=== PATIENT | female | born 1955 | race Caucasian/White ===

== ENCOUNTER 2016-09-06 15:12 | Inpatient (IN) | payer OTHER ==
[~2016-09-06] VITALS: Ht 165.1 cm; Wt 54.9 kg
--- NOTE | 2016-09-06 15:25 | NUR ---
C/O LOWER ABDOMINAL PAIN X 6 HOURS WITH RECTAL BLEEDING, DIZZINESS. STATES SHE HAS BEEN CONSTIPATED WITH INTERMITTANT DIARRHEA.
[2016-09-06 16:38] LABS: ABSOLUTE BASOPHIL COUNT 0 /CUMM (0.0-0.2); ABSOLUTE EOSINOPHIL COUNT 0 /CUMM (0.0-0.7); ABSOLUTE GRANULOCYTE CT 22.7 /CUMM (1.4-6.5); ABSOLUTE LYMPH COUNT 0.8 /CUMM (1.2-3.4); ABSOLUTE MONOCYTE COUNT 1.2 /CUMM (0.10-0.60); BASOPHIL % 0.1 % (0.0-2.0); EOSINOPHIL % 0 % (0-5); GRANULOCYTE % 91.7 % (42.2-75.2); HEMATOCRIT 41.8 % (37-47); MEAN CORPUSCULAR HGB 29.5 PG (27.0-31.0); MEAN CORPUSCULAR HGB CONC 32.8 G/DL (33.0-37.0); MEAN CORPUSCULAR VOLUME 90.1 FL (81.0-99.0); PLATELET COUNT 333 /CUMM (130-400); RBC DISTRIBUTION WIDTH 13.9 % (11.5-14.5); RED BLOOD CELL CT 4.64 /CUMM (4.20-5.40); WHITE BLOOD CELL COUNT 24.7 /CUMM (4.8-10.8)
--- NOTE | 2016-09-06 16:44 | ED GI/GU/ABDOMINAL COMPLAINT ---
History of Present Illness General Chief Complaint: Abdominal Pain/Flank Pain Stated Complaint: ABD PAIN/BLOOD OUT OF RECTUM Source: patient Exam Limitations: no limitations Vital Signs & Intake/Output Vital Signs & Intake/Output Vital Signs Date Time Temp Pulse Resp B/P Pulse O2 O2 Flow FiO2 Ox Delivery Rate 09/08 0703 98.2 76 18 132/68 95 Room Air 09/07 2242 98.2 72 18 130/70 94 Room Air 09/07 1458 98.8 76 18 102/58 95 ED Intake and Output 09/08 0000 09/07 1200 Intake Total 2400 1200 Output Total 550 Balance 1850 1200 Intake, IV 2000 1200 Intake, Oral 400 Number 0 Bowel Movements Output, Urine 550 Allergies Coded Allergies: tramadol (UNKNOWN 10/28/15) Reconcile Medications Eletriptan HBr (Relpax) 40 MG TABLET 1 TAB PO DAILY MIGRAINES (Reported) Estradiol (Vivelle-Dot) 0.075 MG/24 HOUR PATCH.TDSW 1 TAB PO PRN ESTROGEN ( Reported) Gabapentin Enacarbil (Horizant) 600 MG TABLET.ER 1 TAB PO BID NERVE PAIN ( Reported) Lisdexamfetamine Dimesylate (Vyvanse) 60 MG CAPSULE 1 CAP PO QAM NERVES ( Reported) Metaxalone (Skelaxin) 800 MG TABLET 1 TAB PO TID MUSCLE SPASM (Reported) Montelukast Sodium 10 MG TABLET 1 TAB PO DAILY ALLERGIES (Reported) Triage Note: C/O LOWER ABDOMINAL PAIN X 6 HOURS WITH RECTAL BLEEDING, DIZZINESS. STATES SHE HAS BEEN CONSTIPATED WITH INTERMITTATN DIARRHEA. Triage Nurses Notes Reviewed? yes ? N Is pt currently ? No HPI: THIS PATIENT is a 60-year-old female with a past medical history including asthma who presented to the emergency department today for acute onset of left lower quadrant abdominal pain. The patient reported that she was sitting at work approximately 6 hours ago when she developed sharp, 9 out of 10, nonradiating left lower abdominal pain. She reported that the pain has been constant, but gets worse in waves. At its best, the pain is a 6 out of 10. She reported that since she has been here in the emergency department, the pain seems to have migrated to her mid lower abdomen. The patient denied any provoking or palliative factors. She reported that over the last several months she has been more constipated than normal. Her reported that she has had a 12 pound weight loss over the last couple of months. The patient reported that today she had 2 episodes of watery diarrhea. After that time, she reported that she started passing bright red clots in her stool. She reported that she has had a minimal amount to eat and drink today. She reported nausea, but no vomiting. She denied any fevers, chills, chest pain, back pain, urinary burning , urgency, frequency, or blood in the urine. (ROBERTH ROB PA-C) Past History Travel History Traveled to [place] past 21 day No Medical History Any Pertinent Medical History? see below for history Respiratory: asthma Surgical History Surgical History: non-contributory Psychosocial History Who do you live with Family Services at Home None What is your primary language Austrian Tobacco Use: Never used ETOH Use: denies use Family History Hx Contributory? No (ROBERTH ROB PA-C) Review of Systems Review of Systems Constitutional: Reports: no symptoms. EENTM: Reports: no symptoms. Respiratory: Reports: no symptoms. Cardiovascular: Reports: no symptoms. GI: Reports: see HPI. Genitourinary: Reports: no symptoms. Musculoskeletal: Reports: no symptoms. Skin: Reports: no symptoms. Neurological/Psychological: Reports: no symptoms. Hematologic/Endocrine: Reports: see HPI. All Other Systems: Reviewed and Negative (ROBERTH ROB PA-C) Physical Exam Physical Exam Gastrointestinal: soft, HYPOACTIVE BOWEL SOUNDS. nONDISTENDED. nO ORGANOMEGALY APPRECIATED. nO MASSES APPRECIATED. tENDERNESS TO PALPATION IN THE LEFT LOWER QUADRANT AND MID LOWER ABDOMEN WITH NO REBOUND OR GUARDING. nO mCbURNEY POINT TENDERNESS. nEGATIVE Lobo SIGN Comments: Well-developed well-nourished person in moderate distress HEENT: Normal EENT exam, head normocephalic, moist mucous membranes Neck: Supple with no lymphadenopathy Back: No CVA tenderness Cardiovascular: Regular rate and rhythm with no murmurs, rubs, or gallops Respiratory: Chest nontender. No respiratory distress. Breath sounds clear to auscultation bilaterally Rectal examination: No evidence of external hemorrhoids or fissures. No internal hemorrhoids appreciated. Brown stool, heme-positive on stool guaiac Neuro: Alert oriented x3, cranial nerves II through XII grossly intact. Skin: No appreciable rash on exposed skin, skin is warm and dry. Psych: Mood and affect is normal Core Measures ACS in differential dx? No Severe Sepsis Present: No Septic Shock Present: No (LIANE YEN,ROBERTH) Progress Differential Diagnosis: AAA, AMI, appendicitis, biliary colic, bowel obstruction , colon cancer, cholecystitis, diverticulitis, gastritis, hemorrhoids, ischemic bowel, inflamm bowel dis, kidney stone, ovarian cyst, ovarian torsion, pancreatitis, PID/cervicitis, PUD/GERD, perforated viscous, threatened AB, UTI/ pyelo Plan of Care: Orders Procedure Date/time Status Nothing by Mouth 09/08 B Active HEPATIC FUNCTION PANEL 09/08 0600 Complete CBC WITHOUT DIFFERENTIAL 09/08 0600 Complete BASIC ELECTROLYTES PLUS BUN&CR 09/08 0600 Complete MISSING MEDICATION FORM 09/08 UNK Active Clear Liquid Diet 09/07 D Complete LACTIC ACID 09/07 2100 Complete HEPATIC FUNCTION PANEL 09/07 2100 Complete CBC WITHOUT DIFFERENTIAL 09/07 2100 Complete BASIC ELECTROLYTES PLUS BUN&CR 09/07 2100 Complete CBC WITHOUT DIFFERENTIAL 09/07 1500 Complete Change service to 09/07 1155 Active Current Medications Sig/Sun Start time Last Medication Dose Stop Time Status Admin Non-Formulary 0 SEE ADMIN CRITERIA 09/08 1045 UNVr Medication (NON FORMULARY) Hydromorphone HCl 0.6 MG Q3P PRN 09/08 1000 AC (Dilaudid) Diphenhydramine HCl 25 MG Q6P PRN 09/06 2130 AC (Benadryl) Laboratory Tests 09/08/16 0620: Anion Gap 5, Estimated GFR > 60, BUN/Creatinine Ratio 6.7 L, Total Bilirubin 0.3, Direct Bilirubin 0.3, AST 12 L, ALT 28, Alkaline Phosphatase 68, Total Protein 4.7 L, Albumin 2.3 L, CBC w Diff NO MAN DIFF REQ, RBC 3.67 L, MCV 90.9, MCH 29.8, RDW 14.3, MPV 8.0, Gran % 84.8 H, Lymphocytes % 7.0 L, Monocytes % 7.2, Eosinophils % 0.9, Basophils % 0.1, Absolute Granulocytes 17.1 H, Absolute Lymphocytes 1.4, Absolute Monocytes 1.5 H, Absolute Eosinophils 0.2 , Absolute Basophils 0, PUBS MCHC 32.7 L 09/07/16 2255: Anion Gap 8, Estimated GFR > 60, BUN/Creatinine Ratio 8.3, Lactic Acid 0.7, Total Bilirubin 0.3, Direct Bilirubin 0.3, AST 16, ALT 30, Alkaline Phosphatase 64, Total Protein 5.3 L, Albumin 2.7 L, CBC w Diff MAN DIFF ORDERED, RBC 3.84 L, MCV 90.4, MCH 29.7, RDW 14.3, MPV 7.9, Gran % 90.2 H, Lymphocytes % 3.1 L, Monocytes % 6.2, Eosinophils % 0.2, Basophils % 0.3, Absolute Granulocytes 21.5 H, Segmented Neutrophils 77 H, Band Neutrophils 16 H, Absolute Lymphocytes 0.7 L, Lymphocytes 3 L, Monocytes 4, Absolute Monocytes 1.5 H, Absolute Eosinophils 0.1, Absolute Basophils 0.1, Platelet Estimate ADEQUATE, Normocytic RBCs VERIFIED, Normochromic RBCs VERIFIED, PUBS MCHC 32.8 L 09/07/16 1700: CBC w Diff Cancelled, WBC Cancelled, RBC Cancelled, Hgb Cancelled, Hct Cancelled , MCV Cancelled, MCH Cancelled, RDW Cancelled, Plt Count Cancelled, MPV Cancelled, PUBS MCHC Cancelled 09/07/16 1431: CBC w Diff MAN DIFF ORDERED, RBC 3.57 L, MCV 89.7, MCH 30.3, RDW 13.8, MPV 7.7, Gran % 87.2 H, Lymphocytes % 5.7 L, Monocytes % 6.5, Eosinophils % 0.5, Basophils % 0.1, Absolute Granulocytes 20.8 H, Segmented Neutrophils 82 H, Band Neutrophils 9 H, Absolute Lymphocytes 1.4, Lymphocytes 6 L, Monocytes 3, Absolute Monocytes 1.6 H, Absolute Eosinophils 0.1, Absolute Basophils 0, Platelet Estimate VERIFIED BY SMEAR, Normocytic RBCs VERIFIED, Normochromic RBCs VERIFIED, PUBS MCHC 33.7 09/07/16 1400: CBC w Diff Cancelled, WBC Cancelled, RBC Cancelled, Hgb Cancelled, Hct Cancelled , MCV Cancelled, MCH Cancelled, RDW Cancelled, Plt Count Cancelled, MPV Cancelled, PUBS MCHC Cancelled Diagnostic Imaging: Viewed by Me: CT Scan. Discussed w/RAD: CT Scan. Radiology Impression: PATIENT: HOMER CEE PRESENT AGE: 60 PATIENT ACCOUNT NO: [id number] : 54 LOCATION: [facility] ORDERING PHYSICIAN: ROBERTH ROB PA-C SERVICE DATE: 09/06/16 EXAM TYPE: CAT - CT ABD & PELVIS W IV CONTRAST EXAMINATION: CT ABDOMEN AND PELVIS WITH CONTRAST CLINICAL INFORMATION: Left lower quadrant abdominal pain. COMPARISON: None TECHNIQUE: Multidetector volumetric imaging was performed of the abdomen and pelvis before and after the IV administration of 95 mL of Optiray 320 intravenous contrast. Sagittal and coronal reformatted images were obtained on the technologist's workstation. DLP: 250 to mGy-cm FINDINGS: LUNG BASES: There is platelike atelectasis right middle lobe both lung bases are unremarkable. The heart size is normal. LIVER, GALLBLADDER, AND BILIARY TREE: The liver is normal in size, shape, and attenuation. There are several small hypoinflated attenuated lesions seen segment 4A, segment 6 and segment 7 of the liver. These are suspicious for small cysts however to small to be correctly characterized. No intrahepatic ductal dilatation seen. There is a 1.1 cm hypodense lesion along the anterior gallbladder wall. Question polyp versus lesion. Rest of the gallbladder is unremarkable. No radiopaque gallstones seen.. PANCREAS: Unremarkable. SPLEEN: Unremarkable. ADRENAL GLANDS: Unremarkable. KIDNEYS AND URETERS: The kidneys are normal in size, shape, and attenuation. No hydronephrosis, hydroureter, or calculi seen. No perinephric stranding. BLADDER: Unremarkable. GASTROINTESTINAL TRACT: There is diffuse mural thickening involving the transverse, descending and sigmoid colon suggestive of colitis probably infectious or inflammatory etiology. In addition there is diffuse sigmoid and scattered descending colon diverticulosis without any diverticulitis. There is mild left paracolic stranding from inflammatory process or fluid. There is mild haziness of mesocolon. The small bowel loops are normal caliber. The cecum and the ileocecal junction appears normal. Appendix is not visualized with certainty. No free air or free fluid seen. ABDOMINAL WALL: A small umbilical hernia containing fat is noted. LYMPH NODES: Normal. VASCULAR: The aorta is normal caliber. There are prominent collateral veins in the splenic hilum. Splenic Artery Aneurysm cannot be excluded. They measure 1.1 cm. PELVIC VISCERA: The uterus partially atrophied or removed. There are several phleboliths in the pelvis. No free fluid seen in the cul-de-sac. OSSEOUS STRUCTURES: No lytic or sclerotic process seen. IMPRESSION: Diffuse mural thickening involving the transverse, descending and sigmoid colon suggestive of colitis from inflammatory or infectious process. In addition there is diffuse sigmoid and scattered distal descending colon diverticulosis but no suggestion for diverticulitis. There is haziness of the left meso colon. No free air or free fluid seen. 6 small hypodense liver lesions probable tiny cyst. Slightly hyperdense lesion along the anterior gallbladder wall collection polyp, cyst or lytic underlying lesion. Recommend ultrasound correlation. Suspect two splenic artery aneurysms or dilated collateral veins. DICTATED BY: OLESYA OLGUIN MD DATE/ TIME DICTATED:09/06/161853 RADIO PROGRAM DIRECTOR:DIMITRI DATE/TIME TRANSCRIBED: 09/06/161853 CONFIDENTIAL, DO NOT COPY WITHOUT APPROPRIATE AUTHORIZATION. < Electronically signed in Other Vendor System> SIGNED BY: OLESYA OLGUIN MD 1910 Initial ED EKG: none Comments: 09/06/2016 7:51:15 PM: I discussed this patient's CT scan and workup with on-call industrial health engineer, Dr. Fernandez. Suggesting that this is likely ischemic colitis. He would like to start her on Cipro Flagyl. He would like to follow her hemoglobin and hematocrit overnight as well as provide pain control. He is recommending a surgical consult and stated that he will consult on this patient in the morning and likely do a flexible sigmoidoscopy. (ROBERTH ROB PA-C) Departure Departure Disposition: STILL A PATIENT Condition: Stable Clinical Impression Primary Impression: Ischemic colitis Referrals: YOKO FUNK MD (PCP/Family) Departure Forms: Customer Survey General Discharge Information Admission Note Spoke With: BETINA MUSTAFA MD Documentation of Exam: Documentation of any treatments & extenuating circumstances including Concerns Regarding Discharge (functional status, medication knowledge or non-compliance, living conditions, etc.) that warrant an admission rather than observation: [ This patient is a 60-year-old female who presented to the emergency department today for evaluation of acute onset of left lower quadrant abdominal pain. White blood cell count of 24. CT scan showing likely ischemic colitis. This patient will need to be admitted for IV antibiotics, IV fluid, gastroenterology consultation, surgical consultation, colonoscopy, trend H&H, follow-up urine culture, follow-up blood culture, and close monitoring. Premature discharge could prove medically harmful.] (ROBERTH ROB PA-C) PA/RN SCHOOL Co-Sign Statement Statement: ED Attending supervision documentation- [] I saw and evaluated the patient. I have also reviewed all the pertinent lab results and diagnostic results. I agree with the findings and the plan of care as documented in the PA's/RN SCHOOL's documentation. [X] I have reviewed the ED Record and agree with the PA's/RN SCHOOL's documentation. [] Additions or exceptions (if any) to the PAs/RN SCHOOL's note and plan are summarized below: [] (ODALIS PETE,LUANN) 1910 Initial ED EKG: none Comments: 09/06/2016 7:51:15 PM: I discussed this patient's CT scan and workup with on-call industrial health engineer, Dr. Fernandez. Suggesting that this is likely ischemic colitis. He would like to start her on Cipro Flagyl. He would like to follow her hemoglobin and hematocrit overnight as well as provide pain control. He is recommending a surgical consult and stated that he will consult on this patient in the morning and likely do a flexible sigmoidoscopy. Departure Departure Disposition: STILL A PATIENT Condition: Stable Clinical Impression Primary Impression: Ischemic colitis Referrals: YOKO FUNK MD (PCP/Family) Departure Forms: Customer Survey General Discharge Information Admission Note Spoke With: BETINA MUSTAFA MD Documentation of Exam: Documentation of any treatments & extenuating circumstances including Concerns Regarding Discharge (functional status, medication knowledge or non-compliance, living conditions, etc.) that warrant an admission rather than observation: [ This patient is a 60-year-old female who presented to the emergency department today for evaluation of acute onset of left lower quadrant abdominal pain. White blood cell count of 24. CT scan showing likely ischemic colitis. This patient will need to be admitted for IV antibiotics, IV fluid, gastroenterology consultation, surgical consultation, colonoscopy, trend H&H, follow-up urine culture, follow-up blood culture, and close monitoring. Premature discharge could prove medically harmful.]
--- NOTE | 2016-09-06 17:00 | NUR ---
ATTEMPTED IV AND LINE INFILTRATED AND SECOND ATTEMPT NOT SUCCESSFUL. CHARGE ATTEMPTING
--- NOTE | 2016-09-06 17:02 | NUR ---
SHARITA ROB AT BEDSIDE TO EVAL PT AND DISCUSS POC WITH HER AND SPOUSE
[2016-09-06 17:06] LABS: PT 10.7 SEC (9.4-12.5); PTT 31 SEC (25-37)
[2016-09-06] MEDS ORDERED: MONTELUKAST SOD10 M1 PO (17:28)
[2016-09-06] MEDS ORDERED: RELPAX40 M1 PO (17:28)
[2016-09-06] MEDS ORDERED: VYVANSE60 M1 PO (17:29)
[2016-09-06] MEDS ORDERED: HORIZANT600 M1 PO (17:38)
[2016-09-06] MEDS ORDERED: VIVELLE-DOT1 EAC4 PO (17:40)
[2016-09-06] MEDS ORDERED: SKELAXIN800 M1 PO (17:41)
--- NOTE | 2016-09-06 17:49 | NUR ---
PT FEELS A LITTLE BETTER WITH PAIN MEDS ALTHOUGH PAIN IS STILL PRESENT BUT NOT BAS BEFORE
--- NOTE | 2016-09-06 18:35 | NUR ---
PT LEFT FOR CAT SCAN
--- NOTE | 2016-09-06 19:11 | CT SCAN REPORT ---
EXAMINATION: CT ABDOMEN AND PELVIS WITH CONTRAST CLINICAL INFORMATION: Left lower quadrant abdominal pain. COMPARISON: None TECHNIQUE: Multidetector volumetric imaging was performed of the abdomen and pelvis before and after the IV administration of 95 mL of Optiray 320 intravenous contrast. Sagittal and coronal reformatted images were obtained on the technologist's workstation. DLP: 250 to mGy-cm FINDINGS: LUNG BASES: There is platelike atelectasis right middle lobe both lung bases are unremarkable. The heart size is normal. LIVER, GALLBLADDER, AND BILIARY TREE: The liver is normal in size, shape, and attenuation. There are several small hypoinflated attenuated lesions seen segment 4A, segment 6 and segment 7 of the liver. These are suspicious for small cysts however to small to be correctly characterized. No intrahepatic ductal dilatation seen. There is a 1.1 cm hypodense lesion along the anterior gallbladder wall. Question polyp versus lesion. Rest of the gallbladder is unremarkable. No radiopaque gallstones seen.. PANCREAS: Unremarkable. SPLEEN: Unremarkable. ADRENAL GLANDS: Unremarkable. KIDNEYS AND URETERS: The kidneys are normal in size, shape, and attenuation. No hydronephrosis, hydroureter, or calculi seen. No perinephric stranding. BLADDER: Unremarkable. GASTROINTESTINAL TRACT: There is diffuse mural thickening involving the transverse, descending and sigmoid colon suggestive of colitis probably infectious or inflammatory etiology. In addition there is diffuse sigmoid and scattered descending colon diverticulosis without any diverticulitis. There is mild left paracolic stranding from inflammatory process or fluid. There is mild haziness of mesocolon. The small bowel loops are normal caliber. The cecum and the ileocecal junction appears normal. Appendix is not visualized with certainty. No free air or free fluid seen. ABDOMINAL WALL: A small umbilical hernia containing fat is noted. LYMPH NODES: Normal. VASCULAR: The aorta is normal caliber. There are prominent collateral veins in the splenic hilum. Splenic Artery Aneurysm cannot be excluded. They measure 1.1 cm. PELVIC VISCERA: The uterus partially atrophied or removed. There are several phleboliths in the pelvis. No free fluid seen in the cul-de-sac. OSSEOUS STRUCTURES: No lytic or sclerotic process seen. IMPRESSION: Diffuse mural thickening involving the transverse, descending and sigmoid colon suggestive of colitis from inflammatory or infectious process. In addition there is diffuse sigmoid and scattered distal descending colon diverticulosis but no suggestion for diverticulitis. There is haziness of the left meso colon. No free air or free fluid seen. 6 small hypodense liver lesions probable tiny cyst. Slightly hyperdense lesion along the anterior gallbladder wall collection polyp, cyst or lytic underlying lesion. Recommend ultrasound correlation. Suspect two splenic artery aneurysms or dilated collateral veins.
--- NOTE | 2016-09-06 19:38 | NUR ---
PT MEDICATED ORDERED
--- NOTE | 2016-09-06 20:03 | NUR ---
SHARITA LIANE AT BEDSIDE TO DISCUSS POC WITH PT AND FAMILY PT REQUESTING TO HAVE NO STUDENT OR INTERNS AND WAS ADVISED THAT WE ARE A [facility] SO THEY WORK WITH OUR DOCTORS.
--- NOTE | 2016-09-06 20:13 | NUR ---
RT AT BEDSIDE TO EVAL PT
--- NOTE | 2016-09-06 20:40 | NUR ---
PT EVALUATED BY HOUSE STAFF ALSO GIVEN ICE CHIPS AND DR. MOLINA ALSO COMPLETED A NEW ORTHOSTATIC WHICH IS NOTED IN SYSTEM
--- NOTE | 2016-09-06 21:07 | NUR ---
MEDICAL INTERNS ALSO EVALUATED PT AND PT HAS IV FLAGYL INFUSING AT PRESENT
--- NOTE | 2016-09-06 21:30 | NUR ---
PT GOING TO ROOM 223-1.
--- NOTE | 2016-09-06 22:01 | NUR ---
HOMER CEE Nurse Note by: AILYN KELLOGG I agree with the CONTRACT GRAPHIC DESIGNER findings/evaluation of this patient's condition. Entered by: AILYN KELLOGG Date: 09/06/16 Time: 2200
[2016-09-06 23:06] VITALS: BP 110/60
--- NOTE | 2016-09-06 23:46 | History & Physical ---
GRAEME PETE,JJ 09/06/16 2545: General Information and HPI MD Statement: I have seen and personally examined HOMER CEE and documented this H &P. The patient is a 60 year old F who presented with a patient stated chief complaint of [abd pain]. Source of Information: patient, old records Exam Limitations: no limitations History of Present Illness: This is a 60-year-old female with past medical history asthma, total abdominal hysterectomy, bilateral salpingo-oophorectomy at age 33, on hormone replacement therapy, comes in with chief complaint of left lower quadrant pain followed by watery diarrhea followed by bright red blood per rectum. Patient states that while sitting at work she experienced acute onset left lower quadrant abdominal pain. Initially was 9 out of 10 nonradiating constant pain that seemed to get worse in waves. Pain seemed to migrate to middle of her lower abdomen. Patient does endorse increased constipation over the past few months, she states that for the past year she had Left lower quadrant pain but "every time I went to do something about it, the pain went away." Additionally, the left lower quadrant pain seemed to be getting worse over the past week. However, the pain has never been as acute or as severe at this time. Patient also endorses a history of chronic hematuria. She states that previously she was diagnosed with "chronic kidney stone." Patient denies any fever, vomiting, cough, chest pain, back pain, urinary urgency, frequency. She does endorse nausea, abdominal pain, and some weight loss over the past few months. Patient has significant family history of cancer. Father had prostate cancer, mother had lung cancer, her sister had ovarian cancer and in her mid 30s. Additionally, another sister had "clotting problems," after 2 C-sections. Patient had been on chronic estrogen therapy for what sounds like decades. Allergies/Medications Allergies: Coded Allergies: tramadol (UNKNOWN 10/28/15) Home Med list Eletriptan HBr (Relpax) 40 MG TABLET 1 TAB PO DAILY MIGRAINES (Reported) Estradiol (Vivelle-Dot) 0.075 MG/24 HOUR PATCH.TDSW 1 TAB PO PRN ESTROGEN ( Reported) Gabapentin Enacarbil (Horizant) 600 MG TABLET.ER 1 TAB PO BID NERVE PAIN ( Reported) Lisdexamfetamine Dimesylate (Vyvanse) 60 MG CAPSULE 1 CAP PO QAM NERVES ( Reported) Metaxalone (Skelaxin) 800 MG TABLET 1 TAB PO TID MUSCLE SPASM (Reported) Montelukast Sodium 10 MG TABLET 1 TAB PO DAILY ALLERGIES (Reported) Compliance With Home Meds: GOOD Past History Travel History Traveled to [place] past 21 day No Medical History Respiratory: asthma Surgical History Surgical History: hysterectomy, bilateral salpingo-oophorectomy Past Family/Social History Family History Relations & Conditions if any Relation not specified for: FHx: cancer Psychosocial History Services at Home: None Smoking Status: Never Smoked ETOH Use: denies use Illicit Drug Use: denies illicit drug use Functional Ability ADLs Independent: dressing, eating, toileting, bathing. Ambulation: independent IADLs Independent: shopping, housework, finances, food prep, telephone, transportation , medication admin. Employment History Employment Employed Review of Systems Review of Systems Constitutional: Reports: malaise, weakness. Denies: chills, diaphoresis, fever. EENTM: Reports: no symptoms. Cardiovascular: Denies: chest pain, edema, orthopena, palpitations, syncope. Respiratory: Denies: cough, orthopnea, short of breath. GI: Reports: abdominal pain, constipation, diarrhea, nausea, bloody stool, changes in stool. Genitourinary: Reports: hematuria. Denies: dysuria, frequency, pain, urgency. Musculoskeletal: Reports: no symptoms. Skin: Reports: no symptoms. Exam & Diagnostic Data Last 24 Hrs of Vital Signs/I&O Vital Signs Date Time Temp Pulse Resp B/P Pulse O2 O2 Flow FiO2 Ox Delivery Rate 09/07 0231 99.2 09/07 0145 99.2 09/07 0013 101.0 09/06 2306 101.0 104 20 110/60 96 Room Air 09/06 2257 100.1 78 18 112/51 97 Room Air 09/06 2243 99.4 96 18 120/57 97 Room Air 09/06 2018 98.0 98 17 115/57 98 Room Air 09/06 1904 80 153/69 97 Room Air 09/06 1523 97.5 77 18 130/83 98 Room Air Intake & Output 09/07 0800 09/07 0000 09/06 1600 Intake Total 1020 Output Total 400 Balance 620 Intake, IV 1020 Output, Urine 400 Patient 55.338 kg 55.338 kg Weight Physical Exam General Appearance Alert, Oriented X3, Cooperative Skin No Rashes, No Breakdown, No Significant Lesion HEENT Atraumatic, PERRLA, EOMI Neck Supple Cardiovascular Regular Rate, Normal S1, Normal S2, No Murmurs Lungs Normal Air Movement Abdomen patient has diffuse abdominal tenderness in left lower quadrant, left upper quadrant and epigastric area. Rebound, no guarding. Decreased bowel sounds Neurological Normal Speech, Cranial Nerves 3-12 NL Extremities No Clubbing, No Edema Last 24 Hrs of Labs/Adonis: Laboratory Tests 09/07/16 0005: Lactic Acid 0.6 L 09/06/162053: Lactic Acid 0.7 09/06/160: Urine Color YEL, Urine Clarity HAZY H, Urine pH 6.0, Ur Specific [place] 1.010, Urine Protein NEG, Urine Ketones 15 H, Urine Nitrite NEG, Urine Bilirubin NEG@ ICTO, Urine Urobilinogen 0.2, Ur Leukocyte Esterase NEG, Ur Microscopic SEDIMENT EXAMINED, Urine RBC 1-3, Urine WBC 1-3 H, Urine Mucus FEW, Urine Hemoglobin SMALL H, Urine Glucose NEG 09/06/16 1719: Lactic Acid 1.7 09/06/16 1615: Anion Gap 7, Estimated GFR > 60, BUN/Creatinine Ratio 24.3, Glucose 96, Calcium 10.0, Total Bilirubin 0.7, Direct Bilirubin 0.3, AST 21, ALT 28, Alkaline Phosphatase 68, Total Protein 6.9, Albumin 3.9, Globulin 3.0, Albumin/Globulin Ratio 1.3, Amylase 40, Lipase 37, PT 10.7, INR 1.02, APTT 31, CBC w Diff MAN DIFF ORDERED, RBC 4.64, MCV 90.1, MCH 29.5, RDW 13.9, MPV 8.0, Gran % 91.7 H, Lymphocytes % 3.2 L, Monocytes % 5.0, Eosinophils % 0, Basophils % 0.1, Absolute Granulocytes 22.7 H, Segmented Neutrophils 85 H, Band Neutrophils 6 H, Absolute Lymphocytes 0.8 L, Lymphocytes 5 L, Monocytes 4, Absolute Monocytes 1.2 H, Absolute Eosinophils 0, Absolute Basophils 0, Platelet Estimate VERIFIED BY SMEAR, Normocytic RBCs VERIFIED, Normochromic RBCs VERIFIED , PUBS MCHC 32.8 L, Fld Total RBCs Counted 100 Microbiology 09/06 2212 STOOL: Cryptosporidium Antigen - ORD 09/06 2212 STOOL: Giardia Antigen (ADONIS) - ORD 09/06 2212 STOOL: Clostridium difficile Toxin A & B - ORD 09/06 2212 STOOL: Stool Culture - ORD 09/07 1939 URINE ROUT: Urine Culture - RECD 09/06 1754 BLOOD: Blood Culture - RECD 09/06 1753 BLOOD: Blood Culture - RECD Assessment/Plan Assessment: This is a 60-year-old female with past medical history significant for asthma, hysterectomy, bilateral softening nephrectomy, long-term hormonal therapy, who comes in with chief complaint of LLQ abdominal pain. ED workup shows: Vitals: 97.5, 77, 18, 130/83, 98. CBC shows white count 24.7, hemoglobin 13.7, hematocrit 41.8, platelet 333. INR 1.02, BEP within normal limits, -ve amylase lipase, and normal AST and ALT. CT ABD IMPRESSION: Diffuse mural thickening involving the transverse, descending and sigmoid colon suggestive of colitis from inflammatory or infectious process. In addition there is diffuse sigmoid and scattered distal descending colondiverticulosis but no suggestion for diverticulitis. There is haziness of theleft meso colon. No free air or free fluid seen. 6 small hypodense liver lesions probable tiny cyst. Slightly hyperdense lesion along the anterior gallbladder wall collectionpolyp, cyst or lytic underlying lesion. Recommend ultrasound correlation. Suspect two splenic artery aneurysms or dilated collateral veins. PLAN Left lower quadrant pain: Patient came in with 9 out of 10 acute onset left lower quadrant abdominal pain and diarrhea. Subsequently she stated she had bowel movements of just "large clots of blood." Pain has been present for almost a year intermittently, though on less acute level. She also has a history of long-term hormonal therapy which would predispose her to hypercoagulable state. CT shows colitis, infectious versus inflammatory. 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 Though patient's initial presentation suggests an inflammatory/thrombotic etiology of colitis, at this time we cannot rule out infectious causes. Patient denies any recent antibiotic use. * C. difficile assay * Trend lactic acid * Troponin EKG * Type and cross * IV fluids at 2 50 mL after 2 L of bolus * Ceftriaxone and Flagyl * Morphine and Dilaudid for pain * Flex sig in a.m. * Blood culture * Stool culture Chronic hematuria: patient states that she has history of blood in her urine during routine workup. She was previously informed that it was due to a chronic nephrolith. However on CT scan here there is no evidence of stone. Patient is on hormonal therapy. It is possible that blood is vaginal however she denies any spotting or qamar vaginal bleeding. Blood is only present on urination. * UA * If positive consider urology workup Gallbladder lesion: CT scan shows a gallbladder lesion. * Continue to monitor. Hormone therapy: Patient has been on hormone therapy for what sounds like decades. Patient states she's been on it for over 5-10 years. * Consider stopping on discharge. Full Code Nothing by mouth Mech DVT prophylaxis As Ranked By This Provider Problem List: 1. Ischemic colitis Core Measures/Miscellaneous Acute Coronary Syndrome ACS Diagnosis: No Cerebrovascular Accident CVA/TIA Diagnosis: No Congestive Heart Failure CHF Diagnosis: No Venous Thromboembolism VTE Risk Factors: Acute medical illness, Estrogen No Mech VTE prophylaxis d/t: No contraindications No VTE Pharm Prophylaxis d/t: Active bleeding VTE Diagnosis: No VTE Type: NONE VTE Confirmed by (Test): NONE Severe Sepsis Severe Sepsis Present: No Septic Shock Septic Shock Present: No Miscellaneous Documentation Attending Case Discussed With: BETINA MUSTAFA MD Primary Care Physician: YOKO FUNK MD Patient sees these Specialists unknown Level of Patient Care: General Medicine SANIYA PETE,LONA 09/07/16 0021: Resident Review Statement Resident Statement: examined this patient, discussed with international student counselor, agreed with international student counselor, discussed with family, reviewed EMR data (avail), discussed with nursing , discussed with case mgmt, reviewed images, amended to note Other Findings: Homer is a 60-year-old woman with a history of asthma, total abdominal hysterectomy, bilateral salpingo-oophorectomy at age 33, presents with intense abdominal pain in the left lower quadrant, accompanied by watery diarrhea that gradually turned into bright red blood per rectum. At present vital signs stable, however she is orthostatic positive. Physical exam is notable for decreased frequency of bowel sounds, and diffusely tender abdomen especially in the left lower quadrant area, however the abdomen is soft. White count is 24, 000, lactic acid is 1.7. CT abdomen and pelvis shows diffuse mural thickening of transverse descending and sigmoid colon, and is concerning for possible splenic artery aneurysm or dilated collateral vein. Suspect ischemic colitis versus bacterial. It should be noted that the patient has been on long-term Estradiol therapy managed by her radiation therapy technician "for years". Although she denies any 'spotting' or vaginal bleeding, she has said her "urine is positive for blood" due to a kidney stone. There aren't any stones visualized on CT Abd/Pelvis. Significant hx of cancer in the family. Sister at an early age (32 years old) of ovarian cancer. Mother had lung CA, father had prostate CA. Making the lengthy duration of HRT worrisome. She does not have a uterus, and mammmography from 05/2016 did not show any mammographic evidence of malignancy status post benign excisional biopsy. Bx from 2013 and 2015 did not show any evidence of malignancy. HRT of course in and of itself makes her hypercoagulable. - Problems - Colitis - ischemic > bacterial ? Suspected two splenic artery aneurysms Intermittent hematuria - Plan - Keep NPO Maintain 2 large bore IVs Aggressive IVF DC Estradiol and any further HRT - Suggest DC HRT on DC and communication with Outside Cutter/PCP Type x Screen, with 2U PRBCs on standby repeat lactic acid and EKG for QTc prolongation ( she rec'd ciprofloxacin earlier ) Abx - Ceftriaxone/Flagyl Reglan prn Avoid QT prolonging medications Gi evaluation in the morning, anticipating sigmoidoscopy; Gi has not asked for bowel prep Consider vascular consultation to evaluate suspected two splenic artery aneurysms or dilated collateral veins Defer anticoagulation in light of recent bleeding, guaic +, and lack of involvement of mesenteric veins. DVT ppx BETINA HAMILTON 09/07/16 0057: Attending MD Review Statement Attending Statement Attending MD Statement: examined this patient, discuss w/resident/PA/PROFESSOR OF EDUCATION, agreed w/resident/PA/PROFESSOR OF EDUCATION, discussed with family, reviewed EMR data (avail), reviewed images, amended to note Attending Assessment/Plan: CC: abdominal pain and Bloody stools Pmhx: asthma, total abdominal hysterectomy, bilateral salpingo-oophorectomy, on HRT Patient came to ER today for left lower quadrant abdominal pain, started acutely this morning, gradually progressing to center of the abdomen, sharp. It was followed by 3-4 watery bowel movements , last 2 bowel movements had qamar blood in it , that's when she called her vendor management associate and was suggested to go to ER. For the last 3-4 months she has been more constipated, and some vague abdominal pain since last 1 week but this pain is very severe and different. Her reported that she has had a 12 pound weight loss over the last couple of months. She denies fevers, chills, nausea, vomiting, LOC, chest pain, palpitations, SOB before and after the bloody bowel movements, but endorses dizziness. She traveled to [place] at the month of July, but no unusual food intake, no sick contacts, recent antibiotic use. Never had similar episode in the past. Vitals: T max in ER 99.4, spiked 101 after transferring to floor, HR, RR, BP, O2 sats in acceptable range. Orthostatic vital positive for dropping in systolic blood pressure. On examination: A O 3, anxious, no acute distress, neck supple, no JVD, no lymphadenopathy, mucosa dry CVS: S1-S2, RRR. RS: Clear clear to auscultate bilaterally. Abdomen: Tender left lower quadrant, no rebound, no guarding, decreased bowel sounds. No focal neurological deficit. Peripheral perfusion and pulses intact Labs: WBC of 24.7 with granulocytes 91%,band 6, hemoglobin 13.7, hematocrit 41.8 , MCV 90.0, platelets 333, bicarbonate 27, anion gap 7, BUN 17, creatinine 0.7, lactate 1.7, lipase 37, LFT unremarkable. CT abdomen and pelvis: - Diffuse mural thickening involving the transverse, descending and sigmoid colon suggestive of colitis from inflammatory or infectious process. In addition there is diffuse sigmoid and scattered distal descending colon diverticulosis but no suggestion for diverticulitis. There is haziness of the left meso colon. - No free air or free fluid seen. - 6 small hypodense liver lesions probable tiny cyst. -Slightly hyperdense lesion along the anterior gallbladder wall collection polyp , cyst or lytic underlying lesion. Recommend ultrasound correlation. - Suspect two splenic artery aneurysms or dilated collateral veins. A and P #1 right lower quadrant abdominal pain with lower GI bleed: CT scan shows evidence of colitis, ?Inflammatory, ? Infectious, ? Ischemic. No smoking, or other vasculopathic history, no history of A. fib. Patient has significant leukocytosis with bands, fevers. - Blood cultures to set - Stool C. difficile, stool culture - 2 wide bore IVs peripherally, continue aggressive hydration with 200 mL per hour, after second liter bolus. - Type and screen - Every 4 hours H&H and lactic acid X 4 - GI consult in a.m. - Serial EKG and troponin, X 2 - IV ceftriaxone, IV Flagyl, - Nothing by mouth - When necessary Zofran, Protonix 40 mg IV daily #2 consider discontinuing HRT upon discharge
--- NOTE | 2016-09-07 00:58 | Admission Certification ---
Admission Certification Certification Statement - As attending physician, I certify that at the time of - admission, based on clinical presentation, severity of - symptoms, need for further diagnostic testing and - therapeutic interventions, and risk of adverse outcomes - without in-hospital treatment, in my clinical assessment, - this patient requires an acute hospital stay for a minimum - of two nights or longer. I have also considered psychsocial - factors such as support system, advanced age, financial - issues, cognitive issues, and failed out-patient treatments, - past re-admission history, safety of patient, and lack of - compliance as applicable. Specific rationale supporting this admission is: colitis, lower GI bleeding
--- NOTE | 2016-09-07 02:18 | NUR ---
REPORT RECEIVED FROM KARUNA MARKHAM. PT ARRIVED TO FLOOR AT 2306 VIA STRETCHER. A&OX3, ON RA LUNGS CLEAR, NO DISTRESS. C/O MILD DISCOMFORT IN HER ABD, LEFT LOWER QUADRANT RADIATING TO MID ABD. DENIES NEED TO MORPHINE. TEMP OF 101.0 AND HR OF 104 MD GAMAL BEDOLLA MADE AWARE, IV TYLENOL ORDERED. FLUIDS HUNG. PT REMAINS NPO. ORIENTED PT TO ROOM STAFF AND CALL TORO WITHIN REACH. WILL CONTINUE TO MONITOR.
[2016-09-07 06:40] VITALS: BP 100/58; BP 140/68
--- NOTE | 2016-09-07 07:17 | PN- Housestaff ---
NILES PETE,[facility] 09/07/16 0716: Subjective Follow-up For: Ischemic colitis Subjective: Patient was seen and examined this morning, vital signs stable, blood pressure in the soft side 100/58. Patient complained of severe abdominal pain 10 out of 10 on the left lower quadrant and umbilicus regions. Patient had 2 episodes of rectal bleeding this morning. Patient in to have nausea after morphine. Patient reported history of colostomy couple of years ago and was normal. Review of Systems Constitutional: Reports: see HPI. Objective Last 24 Hrs of Vital Signs/I&O Vital Signs Date Time Temp Pulse Resp B/P Pulse O2 O2 Flow FiO2 Ox Delivery Rate 09/07 1458 98.8 76 18 102/58 95 09/07 1003 70 110/58 09/07 0640 98.7 64 18 100/58 96 Room Air 09/07 0231 99.2 09/07 0145 99.2 09/07 0013 101.0 09/06 2306 101.0 104 20 110/60 96 Room Air 09/06 2257 100.1 78 18 112/51 97 Room Air 09/06 2243 99.4 96 18 120/57 97 Room Air 09/06 2018 98.0 98 17 115/57 98 Room Air 09/06 1904 80 153/69 97 Room Air Intake & Output 09/07 1600 09/07 0800 09/07 0000 Intake Total 1000 1200 1020 Output Total 550 400 Balance 450 1200 620 Intake, IV 1000 1200 1020 Number 0 Bowel Movements Output, Urine 550 400 Patient 55.338 kg Weight Physical Exam General Appearance: Alert, Oriented X3, Cooperative, Moderate Distress Skin: No Rashes, No Breakdown, No Significant Lesion HEENT: Atraumatic, PERRLA, EOMI, Mucous Membr. moist/pink Neck: Supple Cardiovascular: Regular Rate, Normal S1, Normal S2, No Murmurs Lungs: Clear to Auscultation, Normal Air Movement Abdomen: Normal Bowel Sounds, Soft, tenderness over left lower quadrant and lower abdomen Neurological: Normal Gait, Normal Speech, Strength at 5/5 X4 Ext, Normal Tone, Sensation Intact, Cranial Nerves 3-12 NL, Reflexes 2+ Extremities: No Clubbing, No Cyanosis, No Edema, Normal Pulses Assessment/Plan Assessment: This is a 60-year-old female with past medical history significant for asthma, hysterectomy, bilateral softening nephrectomy, long-term hormonal therapy, who comes in with chief complaint of LLQ abdominal pain. On admission: Vitals: 97.5, 77, 18, 130/83, 98. CBC shows white count 24.7, hemoglobin 13.7, hematocrit 41.8, platelet 333. INR 1.02, BEP within normal limits, -ve amylase lipase, and normal AST and ALT. CT ABD IMPRESSION: Diffuse mural thickening involving the transverse, descending and sigmoid colon suggestive of colitis from inflammatory or infectious process. In addition there is diffuse sigmoid and scattered distal descending colondiverticulosis but no suggestion for diverticulitis. There is haziness of theleft meso colon. No free air or free fluid seen. 6 small hypodense liver lesions probable tiny cyst. Slightly hyperdense lesion along the anterior gallbladder wall collectionpolyp, cyst or lytic underlying lesion. Recommend ultrasound correlation. Suspect two splenic artery aneurysms or dilated collateral veins. Problem list #Ischemic colitis -Patient denied any recent history of antibiotic use -Patient deny any recent history of outside food, travel history -GI consultation was obtained -Recommendation for serial abdominal examination, if patient develops any signs of acute abdomen will obtain surgical consultation -Continue IV fluid, will start patient on clear liquid diet, advance diet as tolerated -Notify GI for any acute GI bleeding -We will plan for sigmoidoscopy tomorrow morning, patient was made nothing by mouth at midnight -CBC every 12, hemoglobin target is 8 -H&H 10.9/32 < 11.1/33.4 -We will repeat hemoglobin at 6 AM tomorrow morning -Stool culture and C. difficile are pending receipt -Lactic acid 0.6<0.7<1.7 -WBC 23.8<23.8 -Continue ceftriaxone and Flagyl day 2 -Start Dilaudid 1 mg every 3 when necessary for severe pain #Hormone therapy -Patient was on hormonal therapy for 35 years -History of ovary cancer in sister, in her 30s Full Code Diet clear liquid Mech DVT prophylaxis Consultation GI Problem List: 1. Ischemic colitis Pain Ratin Pain Location: Abdominal pain Pain Goal: Pain 4 or less Pain Plan: Diluadid 1 mg every 3 when necessary for severe pain Tomorrow's Labs & Rationales: CBC, CMP, and LFT ZAINAB MARIO MD 09/07/16 8573: Attending MD Review Statement Attending Statement Attending MD Statement: examined this patient, discuss w/resident/PA/INTERNAL COMBUSTION ENGINE SUBASSEMBLER, agreed w/resident/PA/INTERNAL COMBUSTION ENGINE SUBASSEMBLER, discussed with family, reviewed EMR data (avail), discussed with nursing, discussed with case mgmt, reviewed images, amended to note Attending Assessment/Plan: The patient was seen and discussed with house staff. Agree with the plan of care as outlined.
[2016-09-07 08:32] LABS: ABSOLUTE BASOPHIL COUNT 0 /CUMM (0.0-0.2)
[2016-09-07 09:02] LABS: ABSOLUTE EOSINOPHIL COUNT 0 /CUMM (0.0-0.7); ABSOLUTE GRANULOCYTE CT 20.7 /CUMM (1.4-6.5); ABSOLUTE LYMPH COUNT 1.4 /CUMM (1.2-3.4); ABSOLUTE MONOCYTE COUNT 1.6 /CUMM (0.10-0.60); BASOPHIL % 0.1 % (0.0-2.0); EOSINOPHIL % 0.2 % (0-5); GRANULOCYTE % 86.9 % (42.2-75.2); MEAN CORPUSCULAR HGB CONC 33.3 G/DL (33.0-37.0); MEAN PLATELET VOLUME 7.9 FL (7.4-10.4); PLATELET COUNT 263 /CUMM (130-400); RBC DISTRIBUTION WIDTH 13.9 % (11.5-14.5); RED BLOOD CELL CT 3.71 /CUMM (4.20-5.40); WHITE BLOOD CELL COUNT 23.8 /CUMM (4.8-10.8)
[2016-09-07 09:24] LABS: HEMATOCRIT 33.4 % (37-47)
[2016-09-07 10:03] VITALS: BP 110/58
--- NOTE | 2016-09-07 11:08 | Cons- Gastroenterology ---
IVIS ABARCA 09/07/16 1108: General Information and HPI Consulting Request Date of Consult: 09/07/16 Requested By: BETINA MUSTAFA MD Reason for Consult: Abdominal pain Bright red blood per rectum Source of Information: patient, family Exam Limitations: no limitations History of Present Illness: Mrs Roberts is a 60-year-old lady with a PMH of migraines, asthma, peripheral neuropathy, JOVANY/BSO (30/10 years ago respectively) currently on HRT, kidney stones with intermittent hematuria and cervical spinal fusion admitted with complaints of abdominal pain and BRBPR. Patient reports a sudden onset of LLQ abdominal pain with radiation to the pubic /lower abdominal region with no precipitating events. She endorses similar abdominal discomfort with less severity over the recent months. She does endorse episodes of constipation recently but denies any previous episodes of bloody stools, diarrhea, fevers or chills. Family history positive for lung Ca in her mother, prostate CA father and sister who from ovarian Ca in her 30s. Previous workup for BRCA was negative. She has been on HRT for the past 10 years since bilateral salpingo-oophorectomy. She also works in school system and endorses possibility of sick contacts at work swith no specific recent symptoms. She denies any recent travel, changes in her diet or medication. Allergies/Medications Allergies: Coded Allergies: tramadol (UNKNOWN 10/28/15) Home Med List: Eletriptan HBr (Relpax) 40 MG TABLET 1 TAB PO DAILY MIGRAINES (Reported) Estradiol (Vivelle-Dot) 0.075 MG/24 HOUR PATCH.TDSW 1 TAB PO PRN ESTROGEN ( Reported) Gabapentin Enacarbil (Horizant) 600 MG TABLET.ER 1 TAB PO BID NERVE PAIN ( Reported) Lisdexamfetamine Dimesylate (Vyvanse) 60 MG CAPSULE 1 CAP PO QAM NERVES ( Reported) Metaxalone (Skelaxin) 800 MG TABLET 1 TAB PO TID MUSCLE SPASM (Reported) Montelukast Sodium 10 MG TABLET 1 TAB PO DAILY ALLERGIES (Reported) Past History Travel History Traveled to [place] past 21 day No Medical History Respiratory: asthma Surgical History Surgical History: hysterectomy, bilateral salpingo-oophorectomy Family History Relations & Conditions If Any: Relation not specified for: FHx: cancer Psychosocial History Where Do You Live? Home Services at Home: None Smoking Status: Never Smoked ETOH Use: denies use Illicit Drug Use: denies illicit drug use Functional Ability ADLs Independent: dressing, eating, toileting, bathing. Ambulation: independent IADLs Independent: shopping, housework, finances, food prep, telephone, transportation , medication admin. Employment History Employment: Employed Review of Systems Review of Systems Constitutional: Reports: see HPI. EENTM: Reports: no symptoms. Cardiovascular: Reports: no symptoms. Respiratory: Reports: see HPI. GI: Reports: see HPI. Genitourinary: Reports: see HPI. Musculoskeletal: Reports: see HPI. Skin: Reports: no symptoms. Exam & Diagnostic Data Vital Signs and I&O Vital Signs Date Time Temp Pulse Resp B/P Pulse O2 O2 Flow FiO2 Ox Delivery Rate 09/07 1003 70 110/58 09/07 0640 98.7 64 18 100/58 96 Room Air 09/07 0231 99.2 09/07 0145 99.2 09/07 0013 101.0 09/06 2306 101.0 104 20 110/60 96 Room Air 09/06 2257 100.1 78 18 112/51 97 Room Air 09/06 2243 99.4 96 18 120/57 97 Room Air 09/06 2018 98.0 98 17 115/57 98 Room Air 09/06 1904 80 153/69 97 Room Air 09/06 1523 97.5 77 18 130/83 98 Room Air Intake & Output 09/07 1600 09/07 0400 09/06 1600 09/06 0400 09/05 1600 09/05 0400 Intake Total 1200 1020 Output Total 400 Balance 1200 620 Intake, IV 1200 1020 Number 0 Bowel Movements Output, Urine 400 Patient 122 lb 122 lb Weight Physical Exam General Appearance: alert, Patient exhibits discomfort with movement in bed Head: atraumatic, normal appearance Eyes: Bilateral: normal appearance, EOMI. Respiratory: normal breath sounds, no respiratory distress Cardiovascular: regular rate/rhythm, normal peripheral pulses Gastrointestinal: soft, Hyperactive bowel sounds in the periumbilical region. Tenderness to light palpation of the LLQ and lower abdominal regions. Extremities: normal inspection, normal range of motion, no edema Results Pertinent Lab Results: Laboratory Tests 09/07 09/07 09/06 0800 0005 2054 Chemistry Sodium (137 - 145 mmol/L) 137 Potassium (3.5 - 5.1 mmol/L) 3.3 L Chloride (98 - 107 mmol/L) 108 H Carbon Dioxide (22 - 30 mmol/L) 25 Anion Gap (5 - 16) 5 BUN (7 - 17 mg/dL) 8 Creatinine (0.5 - 1.0 mg/dL) 0.7 Estimated GFR (>60 ml/min) > 60 BUN/Creatinine Ratio (7 - 25 %) 11.4 Lactic Acid (0.7 - 2.1 mmol/L) 0.6 L 0.7 Troponin I (< 0.11 ng/ml) < 0.01 Hematology CBC w Diff MAN DIFF ORDERED WBC (4.8 - 10.8 /CUMM) 23.8 H RBC (4.20 - 5.40 /CUMM) 3.71 L Hgb (12.0 - 16.0 G/DL) 11.1 L Hct (37 - 47 %) 33.4 L MCV (81.0 - 99.0 FL) 90.0 MCH (27.0 - 31.0 PG) 30.0 RDW (11.5 - 14.5 %) 13.9 Plt Count (130 - 400 /CUMM) 263 MPV (7.4 - 10.4 FL) 7.9 Gran % (42.2 - 75.2 %) 86.9 H Lymphocytes % (20.5 - 51.1 %) 6.1 L Monocytes % (1.7 - 9.3 %) 6.7 Eosinophils % (0 - 5 %) 0.2 Basophils % (0.0 - 2.0 %) 0.1 Absolute Granulocytes (1.4 - 6.5 /CUMM) 20.7 H Segmented Neutrophils (42.2 - 75.2 %) 73 Band Neutrophils (0.0 - 5.0 %) 11 H Absolute Lymphocytes (1.2 - 3.4 /CUMM) 1.4 Lymphocytes (20.5 - 51.1 %) 9 L Monocytes (1.7 - 9.3 %) 5 Absolute Monocytes (0.10 - 0.60 /CUMM) 1.6 H Eosinophils (0 - 5.0 %) 1 Absolute Eosinophils (0.0 - 0.7 /CUMM) 0 Basophils (0.0 - 2.0 %) 1 Absolute Basophils (0.0 - 0.2 /CUMM) 0 Platelet Estimate (ADEQUATE) ADEQUATE Normocytic RBCs VERIFIED Normochromic RBCs VERIFIED PUBS MCHC (33.0 - 37.0 G/DL) 33.3 09/06 09/06 194 1719 Chemistry Lactic Acid (0.7 - 2.1 mmol/L) 1.7 Urines Urine Color (YEL,AMB,STR) YEL Urine Clarity (CLEAR) HAZY H Urine pH (5.0 - 8.0) 6.0 Ur Specific [place] (1.001 - 1.035) 1.010 Urine Protein (NEG,<30 MG/DL) NEG Urine Ketones (NEG) 15 H Urine Nitrite (NEG) NEG Urine Bilirubin (NEG) NEG@ICTO Urine Urobilinogen (0.1 - 1.0 EU/dl) 0.2 Ur Leukocyte Esterase (NEG) NEG Ur Microscopic SEDIMENT EXAMINED Urine RBC (0 - 5 /HPF) 1-3 Urine WBC (0 - 2 /HPF) 1-3 H Urine Mucus (FEW,NONE) FEW Urine Hemoglobin (NEG) SMALL H Urine Glucose (N MG/DL) NEG 09/06 1615 Chemistry Sodium (137 - 145 mmol/L) 138 Potassium (3.5 - 5.1 mmol/L) 3.9 Chloride (98 - 107 mmol/L) 105 Carbon Dioxide (22 - 30 mmol/L) 27 Anion Gap (5 - 16) 7 BUN (7 - 17 mg/dL) 17 Creatinine (0.5 - 1.0 mg/dL) 0.7 Estimated GFR (>60 ml/min) > 60 BUN/Creatinine Ratio (7 - 25 %) 24.3 Glucose (65 - 99 mg/dL) 96 Calcium (8.4 - 10.2 mg/dL) 10.0 Total Bilirubin (0.2 - 1.3 mg/dL) 0.7 Direct Bilirubin (< 0.4 mg/dL) 0.3 AST (14 - 36 U/L) 21 ALT (9 - 52 U/L) 28 Alkaline Phosphatase (<127 U/L) 68 Total Protein (6.3 - 8.2 g/dL) 6.9 Albumin (3.5 - 5.0 g/dL) 3.9 Globulin (1.9 - 4.2 gm/dL) 3.0 Albumin/Globulin Ratio (1.1 - 2.2 %) 1.3 Amylase (30 - 110 U/L) 40 Lipase (23 - 300 U/L) 37 Coagulation PT (9.4 - 12.5 SEC) 10.7 INR (0.90 - 1.19) 1.02 APTT (25 - 37 SEC) 31 Hematology CBC w Diff MAN DIFF ORDERED WBC (4.8 - 10.8 /CUMM) 24.7 H RBC (4.20 - 5.40 /CUMM) 4.64 Hgb (12.0 - 16.0 G/DL) 13.7 Hct (37 - 47 %) 41.8 MCV (81.0 - 99.0 FL) 90.1 MCH (27.0 - 31.0 PG) 29.5 RDW (11.5 - 14.5 %) 13.9 Plt Count (130 - 400 /CUMM) 333 MPV (7.4 - 10.4 FL) 8.0 Gran % (42.2 - 75.2 %) 91.7 H Lymphocytes % (20.5 - 51.1 %) 3.2 L Monocytes % (1.7 - 9.3 %) 5.0 Eosinophils % (0 - 5 %) 0 Basophils % (0.0 - 2.0 %) 0.1 Absolute Granulocytes (1.4 - 6.5 /CUMM) 22.7 H Segmented Neutrophils (42.2 - 75.2 %) 85 H Band Neutrophils (0.0 - 5.0 %) 6 H Absolute Lymphocytes (1.2 - 3.4 /CUMM) 0.8 L Lymphocytes (20.5 - 51.1 %) 5 L Monocytes (1.7 - 9.3 %) 4 Absolute Monocytes (0.10 - 0.60 /CUMM) 1.2 H Absolute Eosinophils (0.0 - 0.7 /CUMM) 0 Absolute Basophils (0.0 - 0.2 /CUMM) 0 Platelet Estimate (ADEQUATE) VERIFIED BY SMEAR Normocytic RBCs VERIFIED Normochromic RBCs VERIFIED PUBS MCHC (33.0 - 37.0 G/DL) 32.8 L Other Body Source Fld Total RBCs Counted (%) 100 Imaging/Other Studies: CT abdomen pelvis with contrast: Diffuse mural thickening involving the transverse, descending and sigmoid colon suggestive of colitis from inflammatory or infectious process. In addition there is diffuse sigmoid and scattered distal descending colon diverticulosis but no suggestion for diverticulitis. There is haziness of the left meso colon. No free air or free fluid seen. 6 small hypodense liver lesions probable tiny cyst. Slightly hyperdense lesion along the anterior gallbladder wall collection polyp, cyst or lytic underlying lesion. Recommend ultrasound correlation. Suspect two splenic artery aneurysms or dilated collateral veins. Assessment/Plan Assessment/Recommendations: 60-year-old lady with a PMH of migraines, asthma, peripheral neuropathy, JOVANY/BSO (30/10 years ago respectively) currently on HRT, kidney stones with intermittent hematuria and cervical spinal fusion admitted with complaints of sudden onset LLQ abdominal pain radiating to the suprapubic/lower abdominal region and BRBPR. She endorses similar episodes of abdominal pain with less severity over the recent months, occasional constipation. VS on admission: BP 130/83, HR 77, RR 18, SPO2 98% on RA T 97.5. MAXIMUM TEMPERATURE 101.0 Pertinent labs: WBC 24.7, 6% bandemia, H&H 13.7/41.8, platelets 333, BUN/CR 10/ 0.7 AST/ALT 21/28 T bili: 0.7 Direct bili 0.3 Alkaline phosphatase 68 Lipase: 37 INR: 1.02 Serial lactic acid: 1.7/0.7/0.6 Problem list: 1. Diffuse mural thickening of transverse, descending and sigmoid colon 2. Bright red blood per rectum 3. Abdominal pain 4. Hyperdense lesion on the anterior gallbladder Recommendations: * CT findings do correlate with an ischemic picture, possibly around the hepatic flexure region. Despite serial lactic acid levels WNL recommend continued with metronidazole and ceftriaxone * Bowel rest with gradual advancement of diet as tolerated * Monitor for continued bleeding/ worsening abdominal pain. If these occur, repeat lactic acid and notify GI Consult Acknowledgment - Thank you for your consult request. CHEPE PETE,PADMAJA 09/07/16 1401: General Information and HPI Allergies/Medications Current Medications: Current Medications Sig/Sun Start time Last Medication Dose Route Stop Time Status Admin Acetaminophen 1,000 MG .STK-MED ONE 09/07 0005 DC IV 09/07 0006 Acetaminophen 1,000 MG Q6P PRN 09/06 2345 AC 09/07 N/A 1 UNIT IV 0013 Ceftriaxone Sodium 1,000 MG DAILY 09/07 1000 AC 09/07 IV 1018 Ciprofloxacin 400 MG ONCE ONE 09/06 2000 DC 09/06 Dextrose/Water 200 ML IV 09/06 2059 2215 Diphenhydramine HCl 25 MG Q6P PRN 09/06 2130 AC IV Fluticasone 2 SPRAY DAILY 09/07 1000 AC 09/07 Propionate JOSÉ MANUEL 1018 Metoclopramide HCl 10 MG ONCE ONE 09/07 1100 DC 09/07 IV 09/07 1101 1102 Metoclopramide HCl 10 MG Q6P PRN 09/06 2145 AC 09/07 IV 0732 Metronidazole 500 MG Q8 09/07 0600 AC 09/07 N/A 1 UNIT IV 1356 Metronidazole 500 MG ONCE ONE 09/06 2000 DC 09/06 N/A 1 UNIT IV 09/06 2059 2100 Montelukast Sodium 10 MG DAILY 09/07 1000 AC 09/07 PO 1018 Morphine Sulfate 4 MG Q4P PRN 09/07 1345 AC IV Morphine Sulfate 0 .STK-MED ONE 09/06 2251 DC .ROUTE Morphine Sulfate 2 MG Q4P PRN 09/06 2130 DC 09/07 IV 1057 Morphine Sulfate 0 .STK-MED ONE 09/06 1931 DC .ROUTE Morphine Sulfate 2 MG ONCE ONE 09/06 1930 DC 09/06 IV 09/06 1931 1938 Morphine Sulfate 0 .STK-MED ONE 09/06 1709 DC .ROUTE Morphine Sulfate 2 MG ONCE ONE 09/06 1700 DC 09/06 IV 09/06 1701 1719 Potassium Chloride 20 MEQ Q8H 09/07 1030 AC 09/07 Dextrose/Sodium 1,000 ML IV 1248 Chloride Potassium Chloride 10 MEQ ONCE ONE 09/07 0830 DC IV 09/07 0831 Potassium Chloride 10 MEQ ONCE ONE 09/07 0730 DC IV 09/07 0731 Sodium Chloride 500 ML BOLUS ONE 09/07 0815 DC 09/07 IV 09/07 0914 0819 Sodium Chloride 1,000 ML Q6H 09/06 2230 DC 09/07 IV 0729 Sodium Chloride 1,000 ML BOLUS ONE 09/06 2030 DC 09/06 IV 09/06 2229 2100 Sodium Chloride 1,000 ML BOLUS ONE 09/06 1645 DC 09/06 IV 09/06 1744 1719 Exam & Diagnostic Data Vital Signs and I&O Vital Signs Date Time Temp Pulse Resp B/P Pulse O2 O2 Flow FiO2 Ox Delivery Rate 09/07 1003 70 110/58 03/16 0640 98.7 64 18 100/58 96 Room Air 09/07 0231 99.2 09/07 0145 99.2 09/07 0013 101.0 09/06 2306 101.0 104 20 110/60 96 Room Air 09/06 2257 100.1 78 18 112/51 97 Room Air 09/06 2243 99.4 96 18 120/57 97 Room Air 09/06 2018 98.0 98 17 115/57 98 Room Air 09/06 1904 80 153/69 97 Room Air 09/06 1523 97.5 77 18 130/83 98 Room Air Intake & Output 09/07 1600 09/07 0400 09/06 1600 09/06 0400 09/05 1600 09/05 0400 Intake Total 1200 1020 Output Total 400 Balance 1200 620 Intake, IV 1200 1020 Number 0 Bowel Movements Output, Urine 400 Patient 122 lb 122 lb Weight Assessment/Plan Consult Acknowledgment - Thank you for your consult request. Attending MD Review Statement Attending Statement Attending MD Statement: examined this patient, discuss w/resident/PA/ASSISTANT FACILITY MANAGER, agreed w/resident/PA/ASSISTANT FACILITY MANAGER Attending Assessment/Plan: Assessment: Ms. Roberts is a 60-year-old female who presents with acute onset of lower abdominal pain followed by bloody diarrhea which is most likely secondary to acute ischemic colitis considering her history, clinical course and inflammation in a watershed area of her colon on her CAT scan. She continues to have some bleeding which she notes is somewhat improved today and she also continues to be in a moderate amount of abdominal pain with a persistently elevated white count from which she has been afebrile. It also appears as she may have a UTI based on her urine culture growing gram-negative rods and it is also possible that this may be contributing to her elevated white count as well. Her history is not consistent with mesenteric ischemia which generally does not bleed and is associated more with pain on eating, chronic diarrhea and weight loss none of which she complains of. While it may be reasonable to consider pursuing an endoscopic workup while she is an inpatient to confirm the diagnosis and also to rule out and treat any active bleeding will hold off on that at this time as it is unlikely to car changer acutely. Recommendations: 1. Advance to a clear liquid diet as tolerated. 2. Perform serial abdominal exams and if she develops an acute abdomen would call a surgery consult. 3. Follow CBCs every 12 hours and transfuse as needed to keep her hemoglobin greater than 8. 4. Notify GI for any signs of hemodynamically significant bleeding. 5. If the patient has any diarrhea while an inpatient would send off stool studies for C. difficile, culture, and O&P. 6. Treatment of urinary tract infection as per primary care team and would continue antibiotics for ischemic colitis for now. 7. If patient continues to bleed consideration given for an inpatient flexible sigmoidoscopy/colonoscopy or if she continues to symptomatically improve a full colonoscopy which she is due for at the end of this year can be pursued as an outpatient. I will continue to follow this patient and make further recommendations based on her clinical course and results of repeat blood work.
--- NOTE | 2016-09-07 11:56 | NUR ---
PT BP 100/58, SMALL AMOUNT OF BLOOD IN TOLIET FROM RECTUM AFTER VOIDING, NO BM, MD JHONY COLIN AWARE AND 500ML BOLUS ORDERED. BP 110/58 NOW
[2016-09-07 14:58] VITALS: BP 102/58
[2016-09-07 15:19] LABS: ABSOLUTE BASOPHIL COUNT 0 /CUMM (0.0-0.2); ABSOLUTE EOSINOPHIL COUNT 0.1 /CUMM (0.0-0.7); ABSOLUTE GRANULOCYTE CT 20.8 /CUMM (1.4-6.5); ABSOLUTE LYMPH COUNT 1.4 /CUMM (1.2-3.4); ABSOLUTE MONOCYTE COUNT 1.6 /CUMM (0.10-0.60); BASOPHIL % 0.1 % (0.0-2.0); EOSINOPHIL % 0.5 % (0-5); GRANULOCYTE % 87.2 % (42.2-75.2); MEAN CORPUSCULAR HGB 30.3 PG (27.0-31.0); MEAN CORPUSCULAR HGB CONC 33.7 G/DL (33.0-37.0); MEAN CORPUSCULAR VOLUME 89.7 FL (81.0-99.0); MEAN PLATELET VOLUME 7.7 FL (7.4-10.4); PLATELET COUNT 269 /CUMM (130-400); RBC DISTRIBUTION WIDTH 13.8 % (11.5-14.5); RED BLOOD CELL CT 3.57 /CUMM (4.20-5.40); WHITE BLOOD CELL COUNT 23.8 /CUMM (4.8-10.8)
--- NOTE | 2016-09-07 16:56 | NUR ---
1100- PT A/V/OX3. PAIN TO L L QUADRANT 02/01. + BS IN ALL QUADRANTS. VOIDING WELL. WILL GUIAC ANY STOOLS. NO BLOOD PER RECTUM AT THIS TIME. CATERING COOK DR. NIALL CAGE NOTIIFED OF PERSISTANT PAIN AFTER PAIN MEDS GIVEN. DR. CAGE TO DISCUSS WITH GI AND DR. MARIO. NO N/V.
[2016-09-07 22:42] VITALS: BP 130/70
[2016-09-07 23:16] LABS: ABSOLUTE BASOPHIL COUNT 0.1 /CUMM (0.0-0.2); ABSOLUTE EOSINOPHIL COUNT 0.1 /CUMM (0.0-0.7); ABSOLUTE GRANULOCYTE CT 21.5 /CUMM (1.4-6.5); ABSOLUTE LYMPH COUNT 0.7 /CUMM (1.2-3.4); ABSOLUTE MONOCYTE COUNT 1.5 /CUMM (0.10-0.60); BASOPHIL % 0.3 % (0.0-2.0); EOSINOPHIL % 0.2 % (0-5); GRANULOCYTE % 90.2 % (42.2-75.2); HEMATOCRIT 34.7 % (37-47); MEAN CORPUSCULAR HGB 29.7 PG (27.0-31.0); MEAN CORPUSCULAR HGB CONC 32.8 G/DL (33.0-37.0); MEAN CORPUSCULAR VOLUME 90.4 FL (81.0-99.0); MEAN PLATELET VOLUME 7.9 FL (7.4-10.4); PLATELET COUNT 249 /CUMM (130-400); RBC DISTRIBUTION WIDTH 14.3 % (11.5-14.5); RED BLOOD CELL CT 3.84 /CUMM (4.20-5.40); WHITE BLOOD CELL COUNT 23.8 /CUMM (4.8-10.8)
[2016-09-08 07:03] VITALS: BP 132/68
--- NOTE | 2016-09-08 07:28 | PN- Housestaff ---
NILES PETE,[facility] 09/08/16 0728: Subjective Follow-up For: Ischemic colitis Subjective: Patient was seen and examined this morning. She continues to complain of abdominal pain 6 out of 10 central abdominal pain that improves with medication. She reported bowel movement of bloody stool this morning. She was on clear liquid diet yesterday, was able to tolerate some toast and Portuguese ice. She is nothing by mouth this morning for possible sigmoidoscopy. Patient also complained of nausea but no vomiting. She denied any shortness of breath, palpitation, chest pain, urinary symptoms. She continued to be afebrile with MAXIMUM TEMPERATURE 98.8. Review of Systems Constitutional: Reports: see HPI. Objective Last 24 Hrs of Vital Signs/I&O Vital Signs Date Time Temp Pulse Resp B/P Pulse O2 O2 Flow FiO2 Ox Delivery Rate 09/08 0703 98.2 76 18 132/68 95 Room Air 09/07 2242 98.2 72 18 130/70 94 Room Air 09/07 1458 98.8 76 18 102/58 95 Intake & Output 09/08 1600 09/08 0800 09/08 0000 Intake Total 1000 1400 Output Total Balance 1000 1400 Intake, IV 1000 1000 Intake, Oral 400 Patient 54.885 kg Weight Physical Exam General Appearance: Alert, Oriented X3, Cooperative, No Acute Distress Skin: No Rashes, No Breakdown, No Significant Lesion HEENT: Atraumatic, PERRLA, EOMI, Mucous Membr. moist/pink Neck: Supple Cardiovascular: Regular Rate, Normal S1, Normal S2, No Murmurs Lungs: Clear to Auscultation, Normal Air Movement Abdomen: Normal Bowel Sounds, Soft, tenderness over central abdomen and left lower quadrant Neurological: Normal Gait, Normal Speech, Strength at 5/5 X4 Ext, Normal Tone, Sensation Intact, Cranial Nerves 3-12 NL, Reflexes 2+ Extremities: No Clubbing, No Cyanosis, No Edema, Normal Pulses Assessment/Plan Assessment: This is a 60-year-old female with past medical history significant for asthma, hysterectomy, bilateral softening nephrectomy, long-term hormonal therapy, who comes in with chief complaint of LLQ abdominal pain. On admission: Vitals: 97.5, 77, 18, 130/83, 98. CBC shows white count 24.7, hemoglobin 13.7, hematocrit 41.8, platelet 333. INR 1.02, BEP within normal limits, -ve amylase lipase, and normal AST and ALT. CT ABD IMPRESSION: Diffuse mural thickening involving the transverse, descending and sigmoid colon suggestive of colitis from inflammatory or infectious process. In addition there is diffuse sigmoid and scattered distal descending colondiverticulosis but no suggestion for diverticulitis. There is haziness of theleft meso colon. No free air or free fluid seen. 6 small hypodense liver lesions probable tiny cyst. Slightly hyperdense lesion along the anterior gallbladder wall collectionpolyp, cyst or lytic underlying lesion. Recommend ultrasound correlation. Suspect two splenic artery aneurysms or dilated collateral veins. Problem list #Ischemic colitis -Patient denied any recent history of antibiotic use -Patient denied any recent history of outside food, travel history -GI consultation was obtained -Sigmoidoscopy was obtained 09/08 revealed sigmoid diverticulosis -GI recommendation to obtain surgical consultation -Surgical consultation was placed stat -Recommendation for serial abdominal examination, if patient develops any signs of acute abdomen call surgery stat -Continue IV fluid, will start patient on clear liquid diet -Notify GI for any acute GI bleeding -CBC every 12, hemoglobin target is 8 -H&H remained stable -Stool culture and C. difficile are pending receipt -Lactic acid 0.7 <0.6<0.7<1.7 -WBC 20.2 <23.8<23.8 -Continue ceftriaxone and Flagyl day 3 -Pain control: Acetaminophen IV every 6 when necessary, Dilaudid 1 mg every 3 when necessary for severe pain -Zofran 4 mg every 6 when necessary IV #Hormone therapy -Patient was on hormonal therapy for 35 years -History of ovary cancer in sister, in her 30s Full Code Diet clear liquid Mech DVT prophylaxis Consultation GI Problem List: 1. Ischemic colitis Pain Ratin Pain Location: Abdominal pain Pain Goal: Pain 4 or less Pain Plan: Severe pain pathway Tomorrow's Labs & Rationales: CBC at 6 PM CBC CMP at 6 AM ZAINAB MARIO MD 09/08/16 2156: Attending MD Review Statement Attending Statement Attending MD Statement: examined this patient, discuss w/resident/PA/OFFICE SERVICES SPECIALIST, agreed w/resident/PA/OFFICE SERVICES SPECIALIST, discussed with family, reviewed EMR data (avail), discussed with nursing, amended to note Attending Assessment/Plan: The patient was seen and discussed with house staff. Agree with the plan of care as outlined.
[2016-09-08 08:45] LABS: ABSOLUTE BASOPHIL COUNT 0 /CUMM (0.0-0.2); ABSOLUTE EOSINOPHIL COUNT 0.2 /CUMM (0.0-0.7); ABSOLUTE GRANULOCYTE CT 17.1 /CUMM (1.4-6.5); ABSOLUTE LYMPH COUNT 1.4 /CUMM (1.2-3.4); ABSOLUTE MONOCYTE COUNT 1.5 /CUMM (0.10-0.60); BASOPHIL % 0.1 % (0.0-2.0); EOSINOPHIL % 0.9 % (0-5); GRANULOCYTE % 84.8 % (42.2-75.2); HEMATOCRIT 33.3 % (37-47); MEAN CORPUSCULAR HGB 29.8 PG (27.0-31.0); MEAN CORPUSCULAR HGB CONC 32.7 G/DL (33.0-37.0); MEAN CORPUSCULAR VOLUME 90.9 FL (81.0-99.0); PLATELET COUNT 250 /CUMM (130-400); RBC DISTRIBUTION WIDTH 14.3 % (11.5-14.5); RED BLOOD CELL CT 3.67 /CUMM (4.20-5.40)
[2016-09-08 09:55] LABS: WHITE BLOOD CELL COUNT 20.2 /CUMM (4.8-10.8)
--- NOTE | 2016-09-08 13:31 | PN- Student ---
KAREEN CHEUNG 09/08/16 1321: Subjective Subjective: Pt was seen my AM team during morning rounds - she was laying in bed with her eyes closed but appears in less pain than yesterday. was present for this encounter. Pain overnight was a 5/10 and was reduced yo 3/10 by the morning after IV tylenol. Pt's pain management plan was discussed at length. It was hard to find an appropriate regimen as she gets nauseous or extremely sedated with many of the typical narcotics that we would first consider to control her level of pain. NSAIDs such as toradol were not considered given her continued hematochezia. At the end, the patient agreed to just continue the current IV tylenol. The pt was also informed that she will be getting a sigmoidoscopy this AM and wanted to know when that was going to happen - we said we would get back to him. We also told her that it was important that we continue to try to get a stool sample so that we can send it out for cultures and O&P and adjust her current abx regimen appropriately. Objective Results Results: Laboratory Tests 09/08/16 0620: Anion Gap 5, Estimated GFR > 60, BUN/Creatinine Ratio 6.7 L, Total Bilirubin 0.3, Direct Bilirubin 0.3, AST 12 L, ALT 28, Alkaline Phosphatase 68, Total Protein 4.7 L, Albumin 2.3 L, CBC w Diff NO MAN DIFF REQ, RBC 3.67 L, MCV 90.9, MCH 29.8, RDW 14.3, MPV 8.0, Gran % 84.8 H, Lymphocytes % 7.0 L, Monocytes % 7.2, Eosinophils % 0.9, Basophils % 0.1, Absolute Granulocytes 17.1 H, Absolute Lymphocytes 1.4, Absolute Monocytes 1.5 H, Absolute Eosinophils 0.2 , Absolute Basophils 0, PUBS MCHC 32.7 L 09/07/16 2255: Anion Gap 8, Estimated GFR > 60, BUN/Creatinine Ratio 8.3, Lactic Acid 0.7, Total Bilirubin 0.3, Direct Bilirubin 0.3, AST 16, ALT 30, Alkaline Phosphatase 64, Total Protein 5.3 L, Albumin 2.7 L, CBC w Diff MAN DIFF ORDERED, RBC 3.84 L, MCV 90.4, MCH 29.7, RDW 14.3, MPV 7.9, Gran % 90.2 H, Lymphocytes % 3.1 L, Monocytes % 6.2, Eosinophils % 0.2, Basophils % 0.3, Absolute Granulocytes 21.5 H, Segmented Neutrophils 77 H, Band Neutrophils 16 H, Absolute Lymphocytes 0.7 L, Lymphocytes 3 L, Monocytes 4, Absolute Monocytes 1.5 H, Absolute Eosinophils 0.1, Absolute Basophils 0.1, Platelet Estimate ADEQUATE, Normocytic RBCs VERIFIED, Normochromic RBCs VERIFIED, [facility] MCHC 32.8 L 09/07/16 1431: CBC w Diff MAN DIFF ORDERED, RBC 3.57 L, MCV 89.7, MCH 30.3, RDW 13.8, MPV 7.7, Gran % 87.2 H, Lymphocytes % 5.7 L, Monocytes % 6.5, Eosinophils % 0.5, Basophils % 0.1, Absolute Granulocytes 20.8 H, Segmented Neutrophils 82 H, Band Neutrophils 9 H, Absolute Lymphocytes 1.4, Lymphocytes 6 L, Monocytes 3, Absolute Monocytes 1.6 H, Absolute Eosinophils 0.1, Absolute Basophils 0, Platelet Estimate VERIFIED BY SMEAR, Normocytic RBCs VERIFIED, Normochromic RBCs VERIFIED, [facility] MCHC 33.7 09/07/16 1400: CBC w Diff Cancelled, WBC Cancelled, RBC Cancelled, Hgb Cancelled, Hct Cancelled , MCV Cancelled, MCH Cancelled, RDW Cancelled, Plt Count Cancelled, MPV Cancelled, [facility] Canc[facility] Laboratory Tests 09/08 09/07 0620 2255 Chemistry Sodium (137 - 145 mmol/L) 139 136 L Potassium (3.5 - 5.1 mmol/L) 3.4 L 3.4 L Chloride (98 - 107 mmol/L) 109 H 105 Carbon Dioxide (22 - 30 mmol/L) 26 23 Anion Gap (5 - 16) 5 8 BUN (7 - 17 mg/dL) 4 L 5 L Creatinine (0.5 - 1.0 mg/dL) 0.6 0.6 Estimated GFR (>60 ml/min) > 60 > 60 BUN/Creatinine Ratio (7 - 25 %) 6.7 L 8.3 Lactic Acid (0.7 - 2.1 mmol/L) 0.7 Total Bilirubin (0.2 - 1.3 mg/dL) 0.3 0.3 Direct Bilirubin (< 0.4 mg/dL) 0.3 0.3 AST (14 - 36 U/L) 12 L 16 ALT (9 - 52 U/L) 28 30 Alkaline Phosphatase (<127 U/L) 68 64 Total Protein (6.3 - 8.2 g/dL) 4.7 L 5.3 L Albumin (3.5 - 5.0 g/dL) 2.3 L 2.7 L Hematology CBC w Diff NO MAN DIFF REQ MAN DIFF ORDERED WBC (4.8 - 10.8 /CUMM) 20.2 H 23.8 H RBC (4.20 - 5.40 /CUMM) 3.67 L 3.84 L Hgb (12.0 - 16.0 G/DL) 10.9 L 11.4 L Hct (37 - 47 %) 33.3 L 34.7 L MCV (81.0 - 99.0 FL) 90.9 90.4 MCH (27.0 - 31.0 PG) 29.8 29.7 RDW (11.5 - 14.5 %) 14.3 14.3 Plt Count (130 - 400 /CUMM) 250 249 MPV (7.4 - 10.4 FL) 8.0 7.9 Gran % (42.2 - 75.2 %) 84.8 H 90.2 H Lymphocytes % (20.5 - 51.1 %) 7.0 L 3.1 L Monocytes % (1.7 - 9.3 %) 7.2 6.2 Eosinophils % (0 - 5 %) 0.9 0.2 Basophils % (0.0 - 2.0 %) 0.1 0.3 Absolute Granulocytes (1.4 - 6.5 /CUMM) 17.1 H 21.5 H Segmented Neutrophils (42.2 - 75.2 %) 77 H Band Neutrophils (0.0 - 5.0 %) 16 H Absolute Lymphocytes (1.2 - 3.4 /CUMM) 1.4 0.7 L Lymphocytes (20.5 - 51.1 %) 3 L Monocytes (1.7 - 9.3 %) 4 Absolute Monocytes (0.10 - 0.60 /CUMM) 1.5 H 1.5 H Absolute Eosinophils (0.0 - 0.7 /CUMM) 0.2 0.1 Absolute Basophils (0.0 - 0.2 /CUMM) 0 0.1 Platelet Estimate (ADEQUATE) ADEQUATE Normocytic RBCs VERIFIED Normochromic RBCs VERIFIED PUBS MCHC (33.0 - 37.0 G/DL) 32.7 L 32.8 L 09/07 09/07 1700 1431 Hematology CBC w Diff Cancelled MAN DIFF ORDERED WBC (4.8 - 10.8 /CUMM) Cancelled 23.8 H RBC (4.20 - 5.40 /CUMM) Cancelled 3.57 L Hgb (12.0 - 16.0 G/DL) Cancelled 10.8 L Hct (37 - 47 %) Cancelled 32.0 L MCV (81.0 - 99.0 FL) Cancelled 89.7 MCH (27.0 - 31.0 PG) Cancelled 30.3 RDW (11.5 - 14.5 %) Cancelled 13.8 Plt Count (130 - 400 /CUMM) Cancelled 269 MPV (7.4 - 10.4 FL) Cancelled 7.7 Gran % (42.2 - 75.2 %) 87.2 H Lymphocytes % (20.5 - 51.1 %) 5.7 L Monocytes % (1.7 - 9.3 %) 6.5 Eosinophils % (0 - 5 %) 0.5 Basophils % (0.0 - 2.0 %) 0.1 Absolute Granulocytes (1.4 - 6.5 /CUMM) 20.8 H Segmented Neutrophils (42.2 - 75.2 %) 82 H Band Neutrophils (0.0 - 5.0 %) 9 H Absolute Lymphocytes (1.2 - 3.4 /CUMM) 1.4 Lymphocytes (20.5 - 51.1 %) 6 L Monocytes (1.7 - 9.3 %) 3 Absolute Monocytes (0.10 - 0.60 /CUMM) 1.6 H Absolute Eosinophils (0.0 - 0.7 /CUMM) 0.1 Absolute Basophils (0.0 - 0.2 /CUMM) 0 Platelet Estimate (ADEQUATE) VERIFIED BY SMEAR Normocytic RBCs VERIFIED Normochromic RBCs VERIFIED PUBS MCHC (33.0 - 37.0 G/DL) Cancelled 33.7 Blood cultures: (-) CT ABD IMPRESSION: Diffuse mural thickening involving the transverse, descending and sigmoid colon suggestive of colitis from inflammatory or infectious process. In addition there is diffuse sigmoid and scattered distal descending colondiverticulosis but no suggestion for diverticulitis. There is haziness of theleft meso colon. No free air or free fluid seen. 6 small hypodense liver lesions probable tiny cyst. Slightly hyperdense lesion along the anterior gallbladder wall collectionpolyp, cyst or lytic underlying lesion. Recommend ultrasound correlation. Suspect two splenic artery aneurysms or dilated collateral veins. Sigmoidoscopy: Findings: The rectum was normal. There was sigmoid diverticulosis with severe tortuosity/ fixed angulation. It was not possible/deemed safe to advance further. Of note there was no blood seen. Impression: * Sigmoid diverticulosis * Clinical picture consistent with ischemic colitis Recommendations: * Advance to clear liquid diet * Continue intravenous antibiotics * Continue IV fluids * Consider surgical consultation * Continue serial abdominal examinations * Follow-up CBCs Admission Lab Results I reviewed the following labs: Laboratory Tests 09/08 09/07 0620 2255 Chemistry Sodium (137 - 145 mmol/L) 139 136 L Potassium (3.5 - 5.1 mmol/L) 3.4 L 3.4 L Chloride (98 - 107 mmol/L) 109 H 105 Carbon Dioxide (22 - 30 mmol/L) 26 23 Anion Gap (5 - 16) 5 8 BUN (7 - 17 mg/dL) 4 L 5 L Creatinine (0.5 - 1.0 mg/dL) 0.6 0.6 Estimated GFR (>60 ml/min) > 60 > 60 BUN/Creatinine Ratio (7 - 25 %) 6.7 L 8.3 Lactic Acid (0.7 - 2.1 mmol/L) 0.7 Total Bilirubin (0.2 - 1.3 mg/dL) 0.3 0.3 Direct Bilirubin (< 0.4 mg/dL) 0.3 0.3 AST (14 - 36 U/L) 12 L 16 ALT (9 - 52 U/L) 28 30 Alkaline Phosphatase (<127 U/L) 68 64 Total Protein (6.3 - 8.2 g/dL) 4.7 L 5.3 L Albumin (3.5 - 5.0 g/dL) 2.3 L 2.7 L Hematology CBC w Diff NO MAN DIFF REQ MAN DIFF ORDERED WBC (4.8 - 10.8 /CUMM) 20.2 H 23.8 H RBC (4.20 - 5.40 /CUMM) 3.67 L 3.84 L Hgb (12.0 - 16.0 G/DL) 10.9 L 11.4 L Hct (37 - 47 %) 33.3 L 34.7 L MCV (81.0 - 99.0 FL) 90.9 90.4 MCH (27.0 - 31.0 PG) 29.8 29.7 RDW (11.5 - 14.5 %) 14.3 14.3 Plt Count (130 - 400 /CUMM) 250 249 MPV (7.4 - 10.4 FL) 8.0 7.9 Gran % (42.2 - 75.2 %) 84.8 H 90.2 H Lymphocytes % (20.5 - 51.1 %) 7.0 L 3.1 L Monocytes % (1.7 - 9.3 %) 7.2 6.2 Eosinophils % (0 - 5 %) 0.9 0.2 Basophils % (0.0 - 2.0 %) 0.1 0.3 Absolute Granulocytes (1.4 - 6.5 /CUMM) 17.1 H 21.5 H Segmented Neutrophils (42.2 - 75.2 %) 77 H Band Neutrophils (0.0 - 5.0 %) 16 H Absolute Lymphocytes (1.2 - 3.4 /CUMM) 1.4 0.7 L Lymphocytes (20.5 - 51.1 %) 3 L Monocytes (1.7 - 9.3 %) 4 Absolute Monocytes (0.10 - 0.60 /CUMM) 1.5 H 1.5 H Absolute Eosinophils (0.0 - 0.7 /CUMM) 0.2 0.1 Absolute Basophils (0.0 - 0.2 /CUMM) 0 0.1 Platelet Estimate (ADEQUATE) ADEQUATE Normocytic RBCs VERIFIED Normochromic RBCs VERIFIED PUBS MCHC (33.0 - 37.0 G/DL) 32.7 L 32.8 L 16 09/07 1700 1431 Hematology CBC w Diff Cancelled MAN DIFF ORDERED WBC (4.8 - 10.8 /CUMM) Cancelled 23.8 H RBC (4.20 - 5.40 /CUMM) Cancelled 3.57 L Hgb (12.0 - 16.0 G/DL) Cancelled 10.8 L Hct (37 - 47 %) Cancelled 32.0 L MCV (81.0 - 99.0 FL) Cancelled 89.7 MCH (27.0 - 31.0 PG) Cancelled 30.3 RDW (11.5 - 14.5 %) Cancelled 13.8 Plt Count (130 - 400 /CUMM) Cancelled 269 MPV (7.4 - 10.4 FL) Cancelled 7.7 Gran % (42.2 - 75.2 %) 87.2 H Lymphocytes % (20.5 - 51.1 %) 5.7 L Monocytes % (1.7 - 9.3 %) 6.5 Eosinophils % (0 - 5 %) 0.5 Basophils % (0.0 - 2.0 %) 0.1 Absolute Granulocytes (1.4 - 6.5 /CUMM) 20.8 H Segmented Neutrophils (42.2 - 75.2 %) 82 H Band Neutrophils (0.0 - 5.0 %) 9 H Absolute Lymphocytes (1.2 - 3.4 /CUMM) 1.4 Lymphocytes (20.5 - 51.1 %) 6 L Monocytes (1.7 - 9.3 %) 3 Absolute Monocytes (0.10 - 0.60 /CUMM) 1.6 H Absolute Eosinophils (0.0 - 0.7 /CUMM) 0.1 Absolute Basophils (0.0 - 0.2 /CUMM) 0 Platelet Estimate (ADEQUATE) VERIFIED BY SMEAR Normocytic RBCs VERIFIED Normochromic RBCs VERIFIED PUBS MCHC (33.0 - 37.0 G/DL) Cancelled 33.7 Assessment/Plan Assessment: Pt is a 60yo female with a h/o JOVANY-BSO (33yo), asthma, and currently on HRT is currently on her second admission day after presenting to the ED with worsening LLQ abdominal pain that radiated to the lower abdomen followed by diarrhea and BRBPR. She is currently receiving Metronidazole and ceftriaxone * Sigmoid diverticulosis * Clinical picture consistent with ischemic colitis Recommendations: * Advance to clear liquid diet * Continue intravenous antibiotics * Continue IV fluids * Consider surgical consultation * Continue serial abdominal examinations * Follow-up CBCs Plan: Abdominal pain * Trend lactic acid: 1.7 (3/15 PM) --> 0.7 (3/16 PM) * WBCs: 23.8 --> 20.2 with left shift * CT scan shows pancolitis * Pain management with IV narcotics and tylenol * consult gen surg if pain continues with no clinical or objective improvement * serial abdominal exams Hematochezia * Type and cross - A+, two units of pRBCs prepared * IV 20mEQ KCl in D5W at 1000mL q8 * Continue IV ceftriaxone and Flagyl * Flex sig today with James - impression: sigmoid diverticulosis, no gross blood, clinical picture consistent with ischemic colitis * Blood culture - negative * Stool cultures not sent yesterday b/c of no BM but cont. to monitor stool output so we can send it for analysis * CBC q8hrs * H&H: 10.9/33.3 - blood transfusion if Hg<7 Nausea * pt extremely sensitive to narcotics * zofran available * pt wants to avoid narcotics, has an "allergy" to tramadol Chronic hematuria: * h/o blood in her urine during routine workup - informed that it was due to a chronic nephrolith but currently no CT scan evidence of a stone * UA: hazy, (+) ketones, 1-2 WBCs, small Hb * Urine Cx: E coli. * no current treatment warranted and pt is asymptomatic Gallbladder lesion: * Continue to monitor * most likely not the cause of current acute abdomen Hormone therapy: * Consider stopping long-term HRT upon discharge Code Status * Full Code Diet * advance diet as tolerated [facility] p[facility] * encourage pt to ambulate if tolerated Attending MD Review Statement Attending Sign Off Attending Cosign Statement: I have: amended to note. ZAINAB MARIO MD 09/12/16 0817: Attending MD Review Statement Attending Sign Off Other Findings: Agree with above.
--- NOTE | 2016-09-08 13:47 | Proc Note Gastroenterology ---
Gastroenterology Procedure Procedure Date: 09/08/16 GI Procedure(s): Flexible sigmoidoscopy [place] Worker: Quintin James M.D. ASA Classification: II Indications: Pain, diarrhea, hematochezia, leukocytosis Meds Received: MAC Patient's Tolerance: good Complications: None Extent Reached: Sigmoid Procedure: The patient signed informed consent, was placed in the Her position, and medicated. Examination of the rectum was normal. The Olympus high-definition variable stiffness colonoscope was inserted through the anus and advanced to the sigmoid. It was then exchanged for a variable stiffness pediatric colonoscope, which was once again advanced to the level of the sigmoid. Findings: The rectum was normal. There was sigmoid diverticulosis with severe tortuosity/ fixed angulation. It was not possible/deemed safe to advance further. Of note there was no blood seen. Impression: * Sigmoid diverticulosis * Clinical picture consistent with ischemic colitis Recommendations: * Advance to clear liquid diet * Continue intravenous antibiotics * Continue IV fluids * Consider surgical consultation * Continue serial abdominal examinations * Follow-up CBCs
[2016-09-08 14:55] VITALS: BP 118/60
--- NOTE | 2016-09-08 16:39 | Cons- General Surgery ---
General Information and HPI Consulting Request Date of Consult: 09/08/16 Requested By: ZAINAB MARIO MD Reason for Consult: COLITIS History of Present Illness: Patient is a relatively healthy 60-year-old woman who developed acute onset of suprapubic and left lower quadrant abdominal pain a few hours before seeking medical attention in the emergency room. The pain was crampy in nature and severe (7/10). It was associated with passage of multiple bloody/mucousy bowel movements. She has never had any problems similar to this. She has no chronic intestinal problems. Her nephew has Crohn's disease. No first degree relatives with any inflammatory bowel disease. She was admitted after CT scan showed diffuse thickening of the distal transverse and left colon. She was treated with broad-spectrum antibiotics, empirically for presumed ischemic colitis. Diagnostic colonoscopy was attempted today but due to the tortuosity of her colon, the area of inflammation could not be directly visualized. Currently patient is still having pain. She requires pain medications. Allergies/Medications Allergies: Coded Allergies: tramadol (UNKNOWN 10/28/15) Home Med List: Eletriptan HBr (Relpax) 40 MG TABLET 1 TAB PO DAILY MIGRAINES (Reported) Estradiol (Vivelle-Dot) 0.075 MG/24 HOUR PATCH.TDSW 1 TAB PO PRN ESTROGEN ( Reported) Gabapentin Enacarbil (Horizant) 600 MG TABLET.ER 1 TAB PO BID NERVE PAIN ( Reported) Lisdexamfetamine Dimesylate (Vyvanse) 60 MG CAPSULE 1 CAP PO QAM NERVES ( Reported) Metaxalone (Skelaxin) 800 MG TABLET 1 TAB PO TID MUSCLE SPASM (Reported) Montelukast Sodium 10 MG TABLET 1 TAB PO DAILY ALLERGIES (Reported) Current Medications: Current Medications Sig/Sun Start time Last Medication Dose Route Stop Time Status Admin Acetaminophen 1,000 MG Q6P PRN 09/08 1600 AC N/A 1 UNIT IV Acetaminophen 1,000 MG Q6P PRN 09/06 2345 DC 09/08 N/A 1 UNIT IV 1456 Ceftriaxone Sodium 1,000 MG DAILY 09/07 1000 AC 09/08 IV 1019 Chlorhexidine 1 GM .STK-MED ONE 09/08 1400 DC Gluconate TOP 09/08 1401 Diphenhydramine HCl 25 MG Q6P PRN 09/06 2130 AC IV Fluticasone 2 SPRAY DAILY 09/07 1000 AC 09/08 Propionate JOSÉ MANUEL 1018 Gabapentin 400 MG Q8 09/07 2200 DC 09/07 PO 2111 Hydromorphone HCl 0.6 MG Q3P PRN 09/08 1000 AC IV Hydromorphone HCl 1 MG Q3P PRN 09/07 1615 DC 09/07 IV 1841 Metoclopramide HCl 10 MG Q6P PRN 09/06 2145 AC 09/08 IV 1456 Metronidazole 500 MG Q8 09/07 0600 AC 09/08 N/A 1 UNIT IV 0613 Montelukast Sodium 10 MG DAILY 09/07 1000 AC 09/08 PO 1019 Non-Formulary 0 SEE ADMIN CRITERIA 09/08 1045 CAN Medication ANY Ondansetron HCl 4 MG Q6P PRN 09/08 1000 AC 09/08 IV 1019 Potassium Chloride 20 MEQ Q8H 09/07 1030 AC 09/08 Dextrose/Sodium 1,000 ML IV 0731 Chloride Sodium Phosphate 1 UNIT ONCE ONE 09/08 1130 DC 09/08 CO 09/08 1131 1154 Sodium Phosphate 1 UNIT ONCE ONE 09/08 1130 DC 09/08 CO 09/08 1131 1147 Sumatriptan Succinate 100 MG ONCE ONE 09/07 1945 DC 09/07 PO 09/07 1946 2136 Sumatriptan Succinate 100 MG DAILY NEEDED 09/07 1830 09/07 PO 1835 Past History Medical History Respiratory: asthma Surgical History Pertinent Surgical History: spinal fusion (CERVICAL), hysterectomy, bilateral salpingo-oophorectomy, CARPAL TUNNEL RELEASE Family History Relations & Conditions If Any: Relation not specified for: FHx: cancer Psychosocial History Where Do You Live? Home Services at Home: None Smoking Status: Never Smoked ETOH Use: denies use Illicit Drug Use: denies illicit drug use Functional Ability ADLs Independent: dressing, eating, toileting, bathing. Ambulation: independent IADLs Independent: shopping, housework, finances, food prep, telephone, transportation , medication admin. Employment History Employment: Employed Review of Systems Review of Systems: ABDOMINAL PAIN PER HPI. NO DYSPNEA. NO CHEST PAIN. REMAINDER 12POINTS NEG. Exam & Diagnostic Data Vital Signs and I&O Vital Signs Date Time Temp Pulse Resp B/P Pulse O2 O2 Flow FiO2 Ox Delivery Rate 09/08 1455 97.7 70 20 118/60 95 09/08 0703 98.2 76 18 132/68 95 Room Air 09/07 2242 98.2 72 18 130/70 94 Room Air Intake & Output 09/08 1600 09/08 0800 09/08 0000 09/07 1600 09/07 0800 09/07 0000 Intake Total 750 1000 1400 1000 1200 1020 Output Total 250 550 400 Balance 500 1000 7925 612 6432 620 Intake, IV 750 1000 1000 1000 1200 1020 Intake, Oral 400 Number 4 0 Bowel Movements Output, Urine 250 550 400 Patient 121 lb 122 lb Weight Physical Exam: Gen.: She is of average body habitus. No distress. She is lying in a position left side down. HEENT: Anicteric PERRL EOMI, mucous membranes moist Chest: Nontender normal respiratory excursion normal respiratory effort Abdomen: Soft, tender in the suprapubic region and left lower quadrant and left mid abdomen. No involuntary guarding. No referred tenderness. No mass. No hernia. Extremities: No cyanosis clubbing or edema Last 24 Hours of Labs: Laboratory Tests 09/08 09/07 0620 2255 Chemistry Sodium (137 - 145 mmol/L) 139 136 L Potassium (3.5 - 5.1 mmol/L) 3.4 L 3.4 L Chloride (98 - 107 mmol/L) 109 H 105 Carbon Dioxide (22 - 30 mmol/L) 26 23 Anion Gap (5 - 16) 5 8 BUN (7 - 17 mg/dL) 4 L 5 L Creatinine (0.5 - 1.0 mg/dL) 0.6 0.6 Estimated GFR (>60 ml/min) > 60 > 60 BUN/Creatinine Ratio (7 - 25 %) 6.7 L 8.3 Lactic Acid (0.7 - 2.1 mmol/L) 0.7 Total Bilirubin (0.2 - 1.3 mg/dL) 0.3 0.3 Direct Bilirubin (< 0.4 mg/dL) 0.3 0.3 AST (14 - 36 U/L) 12 L 16 ALT (9 - 52 U/L) 28 30 Alkaline Phosphatase (<127 U/L) 68 64 Total Protein (6.3 - 8.2 g/dL) 4.7 L 5.3 L Albumin (3.5 - 5.0 g/dL) 2.3 L 2.7 L Hematology CBC w Diff NO MAN DIFF REQ MAN DIFF ORDERED WBC (4.8 - 10.8 /CUMM) 20.2 H 23.8 H RBC (4.20 - 5.40 /CUMM) 3.67 L 3.84 L Hgb (12.0 - 16.0 G/DL) 10.9 L 11.4 L Hct (37 - 47 %) 33.3 L 34.7 L MCV (81.0 - 99.0 FL) 90.9 90.4 MCH (27.0 - 31.0 PG) 29.8 29.7 RDW (11.5 - 14.5 %) 14.3 14.3 Plt Count (130 - 400 /CUMM) 250 249 MPV (7.4 - 10.4 FL) 8.0 7.9 Gran % (42.2 - 75.2 %) 84.8 H 90.2 H Lymphocytes % (20.5 - 51.1 %) 7.0 L 3.1 L Monocytes % (1.7 - 9.3 %) 7.2 6.2 Eosinophils % (0 - 5 %) 0.9 0.2 Basophils % (0.0 - 2.0 %) 0.1 0.3 Absolute Granulocytes (1.4 - 6.5 /CUMM) 17.1 H 21.5 H Segmented Neutrophils (42.2 - 75.2 %) 77 H Band Neutrophils (0.0 - 5.0 %) 16 H Absolute Lymphocytes (1.2 - 3.4 /CUMM) 1.4 0.7 L Lymphocytes (20.5 - 51.1 %) 3 L Monocytes (1.7 - 9.3 %) 4 Absolute Monocytes (0.10 - 0.60 /CUMM) 1.5 H 1.5 H Absolute Eosinophils (0.0 - 0.7 /CUMM) 0.2 0.1 Absolute Basophils (0.0 - 0.2 /CUMM) 0 0.1 Platelet Estimate (ADEQUATE) ADEQUATE Normocytic RBCs VERIFIED Normochromic RBCs VERIFIED PUBS MCHC (33.0 - 37.0 G/DL) 32.7 L 32.8 L Imaging Results: CT scan with IV contrast was personally reviewed. I looked at the images and the finding show diffuse, full-thickness, inflammation and edema of the colon starting at the mid transverse colon and extending into the left colon/sigmoid junction. Sigmoid colon has diffuse diverticulosis without diverticulitis. The rectum is normal. The small bowel was normal. There is no free fluid. No free air. There is inflammatory edema around the colon most notably at the splenic flexure. Assessment/Plan Assessment/Plan Patient has constellation of symptoms and CT scan findings consistent with acute colitis of indeterminate etiology. The differential includes ischemic, infectious or inflammatory. Although the findings on imaging and clinical course suggest ischemic etiology, she does not have the usual risk factors for the development of it. She is on hormone replacement therapy and at higher risk for thromboembolic phenomena. Nevertheless regardless of the etiology, she remains with severe pain and tenderness with leukocytosis. She has had small improvement with bowel rest, hydration and IV broad-spectrum antibiotics. At this point there is no need for urgent surgical intervention. Presumably if this were ischemic there is a chance for reperfusion of the bowel due to collateral circulation. I concern with her is that there is a large area of colon involved. Therefore the success of medical management is reduced. I recommend continued treatment with IV broad-spectrum antibiotics, hydration and bowel rest. Obtain stool culture next time she moves her bowels. Serial abdominal examinations will be performed by myself. Determining factors to recommend surgical intervention would be clinical deterioration (fevers, tachycardia, hypotension, worsening peritonitis). If operative intervention is required, procedure would be colectomy with end colostomy. Patient or family understands the rationale behind surgical treatment of this disease process. Please call myself or the surgical PA should her condition acutely deteriorate. Consult Acknowledgment - Thank you for your consult request.
--- NOTE | 2016-09-08 18:29 | NUR ---
ALERT AND ORIENTED X 3. VITAL SIGNS STABLE. DENIES CHEST PAIN. + PULSES SKIN C/D/I. PATIENT RESTING AT THIS TIME. WILL CONTINUE TO MONITOR
[2016-09-08 19:06] LABS: ABSOLUTE BASOPHIL COUNT 0 /CUMM (0.0-0.2); ABSOLUTE EOSINOPHIL COUNT 0.1 /CUMM (0.0-0.7); ABSOLUTE GRANULOCYTE CT 15.6 /CUMM (1.4-6.5); ABSOLUTE MONOCYTE COUNT 1.6 /CUMM (0.10-0.60); BASOPHIL % 0.1 % (0.0-2.0); EOSINOPHIL % 0.6 % (0-5); GRANULOCYTE % 85.2 % (42.2-75.2); HEMATOCRIT 30.9 % (37-47); MEAN CORPUSCULAR HGB 29.9 PG (27.0-31.0); MEAN CORPUSCULAR VOLUME 90.5 FL (81.0-99.0); MEAN PLATELET VOLUME 7.6 FL (7.4-10.4); PLATELET COUNT 257 /CUMM (130-400); RBC DISTRIBUTION WIDTH 14.2 % (11.5-14.5); RED BLOOD CELL CT 3.41 /CUMM (4.20-5.40)
[2016-09-08 19:09] LABS: WHITE BLOOD CELL COUNT 18.3 /CUMM (4.8-10.8)
[2016-09-08 22:53] VITALS: BP 140/78
[2016-09-09 02:39] LABS: ABSOLUTE BASOPHIL COUNT 0 /CUMM (0.0-0.2); ABSOLUTE EOSINOPHIL COUNT 0.2 /CUMM (0.0-0.7); ABSOLUTE GRANULOCYTE CT 14.6 /CUMM (1.4-6.5); ABSOLUTE LYMPH COUNT 1.4 /CUMM (1.2-3.4); ABSOLUTE MONOCYTE COUNT 1.5 /CUMM (0.10-0.60); BASOPHIL % 0.2 % (0.0-2.0); EOSINOPHIL % 1.4 % (0-5); GRANULOCYTE % 82.4 % (42.2-75.2); HEMATOCRIT 30.4 % (37-47); MEAN CORPUSCULAR HGB 30.1 PG (27.0-31.0); MEAN CORPUSCULAR HGB CONC 33.3 G/DL (33.0-37.0); MEAN CORPUSCULAR VOLUME 90.4 FL (81.0-99.0); MEAN PLATELET VOLUME 7.5 FL (7.4-10.4); PLATELET COUNT 265 /CUMM (130-400); RBC DISTRIBUTION WIDTH 13.9 % (11.5-14.5); RED BLOOD CELL CT 3.36 /CUMM (4.20-5.40); WHITE BLOOD CELL COUNT 17.7 /CUMM (4.8-10.8)
[2016-09-09 06:38] VITALS: BP 134/70
--- NOTE | 2016-09-09 08:24 | PN- Housestaff ---
VIDHYA PETE,RAY 09/09/16 0823: Subjective Follow-up For: Ischemic colitis Subjective: Patient seen and examined. She is seen lying flat in bed resting comfortably. She appears to be in no acute distress. She reports feeling well and that her abdominal pain is well controlled at about a "3/10". She states that she is hungry with mild nausea but otherwise has no new complaints. Additionally she denies any headache, fever, chills, chest pain, palpitations, shortness of breath, cough, vomiting. No overnight events reported. Review of Systems Constitutional: Reports: see HPI. Objective Last 24 Hrs of Vital Signs/I&O Vital Signs Date Time Temp Pulse Resp B/P Pulse O2 O2 Flow FiO2 Ox Delivery Rate 09/09 0638 99.1 81 20 134/70 96 Room Air 09/08 2253 99.3 90 20 140/78 96 Room Air 09/08 1900 77 09/08 1455 97.7 70 20 118/60 95 Intake & Output 09/09 1600 09/09 0800 09/09 0000 Intake Total 1000 200 Output Total Balance 1000 200 Intake, IV 1000 Intake, Oral 200 Physical Exam General Appearance: Alert, Oriented X3, Cooperative, No Acute Distress Other Physical Findings: General -well-developed, well-nourished woman in no acute distress HEENT - NCAT, PERRL, EOMI, anicteric sclera CVS - S1, S2 w/o m/g/r Resp - CTA bilaterally w/o wheezing/rhonchi/crackles GI -soft, mild diffuse tenderness particularly in the left lower quadrant without guarding or rigidity, bowel sounds intact Neuro - Awake and alert, CN II - XII grossly inact Ext - normal pulses, no cyanosis/clubbing/edema Current Medications: Current Medications Sig/Sun Start time Last Medication Dose Route Stop Time Status Admin Acetaminophen 1,000 MG Q6P PRN 09/08 1600 AC 09/08 N/A 1 UNIT IV 2137 Acetaminophen 1,000 MG Q6P PRN 09/06 2345 DC 09/08 N/A 1 UNIT IV 1456 Ceftriaxone Sodium 1,000 MG DAILY 09/07 1000 AC 09/09 IV 1014 Chlorhexidine 1 GM .STK-MED ONE 09/08 1400 DC Gluconate TOP 09/08 1401 Diphenhydramine HCl 25 MG Q6P PRN 09/06 2130 AC IV Fluticasone 2 SPRAY DAILY 09/07 1000 AC 09/09 Propionate JOSÉ MANUEL 1014 Hydromorphone HCl 0.6 MG Q3P PRN 09/08 1000 DC IV Metoclopramide HCl 10 MG .STK-MED ONE 09/08 1447 DC IM 09/08 1448 Metoclopramide HCl 10 MG Q6P PRN 09/06 2145 AC 09/09 IV 0527 Metronidazole 500 MG Q8 09/07 0600 AC 09/09 N/A 1 UNIT IV 0520 Montelukast Sodium 10 MG DAILY 09/07 1000 AC 09/09 PO 1014 Morphine Sulfate 2 MG Q2P PRN 09/08 1745 AC IV Ondansetron HCl 4 MG .STK-MED ONE 09/09 0309 DC IM 09/09 0310 Ondansetron HCl 4 MG Q6P PRN 09/08 1000 AC 09/09 IV 0316 Potassium Chloride 20 MEQ Q8H 09/07 1030 AC 09/09 Dextrose/Sodium 1,000 ML IV 0520 Chloride Sumatriptan Succinate 100 MG DAILY NEEDED 09/07 1830 AC 09/07 PO 1835 Last 24 Hrs of Lab/Adonis Results Last 24 Hrs of Labs/Mics: Laboratory Tests 09/09/16 0644: Anion Gap 6, Estimated GFR > 60, BUN/Creatinine Ratio 5.0 L, CBC w Diff MAN DIFF ORDERED, RBC 3.77 L, MCV 90.4, MCH 29.8, RDW 13.9, MPV 8.1, Gran % 83.2 H , Lymphocytes % 8.3 L, Monocytes % 6.9, Eosinophils % 1.3, Basophils % 0.3, Absolute Granulocytes 14.0 H, Segmented Neutrophils 86 H, Band Neutrophils 7 H, Absolute Lymphocytes 1.4, Lymphocytes 3 L, Monocytes 2, Absolute Monocytes 1.2 H, Eosinophils 2, Absolute Eosinophils 0.2, Absolute Basophils 0, Platelet Estimate ADEQUATE, Normocytic RBCs VERIFIED, Normochromic RBCs VERIFIED, PUBS MCHC 33.0 09/09/16 0200: CBC w Diff NO MAN DIFF REQ, RBC 3.36 L, MCV 90.4, MCH 30.1, RDW 13.9, MPV 7.5, Gran % 82.4 H, Lymphocytes % 7.7 L, Monocytes % 8.3, Eosinophils % 1.4, Basophils % 0.2, Absolute Granulocytes 14.6 H, Absolute Lymphocytes 1.4, Absolute Monocytes 1.5 H, Absolute Eosinophils 0.2, Absolute Basophils 0, PUBS MCHC 33.3 09/08/16 1830: CBC w Diff NO MAN DIFF REQ, RBC 3.41 L, MCV 90.5, MCH 29.9, RDW 14.2, MPV 7.6, Gran % 85.2 H, Lymphocytes % 5.6 L, Monocytes % 8.5, Eosinophils % 0.6, Basophils % 0.1, Absolute Granulocytes 15.6 H, Absolute Lymphocytes 1.0 L, Absolute Monocytes 1.6 H, Absolute Eosinophils 0.1, Absolute Basophils 0, PUBS MCHC 33.0 Microbiology 09/09 1000 STOOL: Stool Culture - RECD Assessment/Plan Assessment: Patient continues to do well but reports episodes of loose bowel movements overnight. Stool culture and C. difficile toxin studies were sent this morning. She reports only mild abdominal pain and otherwise feels well. Hemoglobin remained stable. Problem list: -Ischemic colitis Plan: -General medicine -Monitor for hemodynamic instability -Transfuse hemoglobin when necessary to goal >7.0 -Intravenous fluids -Ceftriaxone 1 g IV daily -Flagyl 500 mg IV every 8 hours -Zofran 4 mg IV every 6 hours as needed for nausea -Gen. surgery following -GI following -Follow-up C. difficile/stool culture studies -Pain control -Nothing by mouth, start diet and morning assuming patient remains stable -DVT prophylaxis -Full code Problem List: 1. Ischemic colitis Pain Ratin Pain Location: Abdomen Pain Goal: Pain 4 or less Pain Plan: As noted and plan Tomorrow's Labs & Rationales: CBC JAZMINEP ZAINAB MARIO MD 09/09/16 1644: Attending MD Review Statement Attending Statement Attending MD Statement: examined this patient, discuss w/resident/PA/DIRECTOR OF [employer]VERTISING [employer], agreed w/resident/PA/DIRECT[employer] OF [employer]VERTISING [employer], reviewed EMR data (avail), discussed with nursing, amended to note Attending Assessment/Plan: The patient was seen and discussed with house staff and GI. Significant improvement today. Diet advanced to full liquids. Will continue to follow on antibiotics. Surgery input appreciated.
[2016-09-09 08:38] LABS: ABSOLUTE BASOPHIL COUNT 0 /CUMM (0.0-0.2); ABSOLUTE EOSINOPHIL COUNT 0.2 /CUMM (0.0-0.7); ABSOLUTE LYMPH COUNT 1.4 /CUMM (1.2-3.4); ABSOLUTE MONOCYTE COUNT 1.2 /CUMM (0.10-0.60); BASOPHIL % 0.3 % (0.0-2.0); EOSINOPHIL % 1.3 % (0-5); GRANULOCYTE % 83.2 % (42.2-75.2); HEMATOCRIT 34.1 % (37-47); MEAN CORPUSCULAR HGB 29.8 PG (27.0-31.0); MEAN CORPUSCULAR VOLUME 90.4 FL (81.0-99.0); MEAN PLATELET VOLUME 8.1 FL (7.4-10.4); PLATELET COUNT 301 /CUMM (130-400); RBC DISTRIBUTION WIDTH 13.9 % (11.5-14.5); RED BLOOD CELL CT 3.77 /CUMM (4.20-5.40); WHITE BLOOD CELL COUNT 16.8 /CUMM (4.8-10.8)
--- NOTE | 2016-09-09 11:34 | PN- General Surgery ---
Subjective Subjective: Feels better. less pain. less tender. frequent watery brown stools. no blood. Objective Vital Signs and I&Os Vital Signs Date Time Temp Pulse Resp B/P Pulse O2 O2 Flow FiO2 Ox Delivery Rate 09/09 0638 99.1 81 20 134/70 96 Room Air 09/08 2253 99.3 90 20 140/78 96 Room Air 09/08 1900 77 09/08 1455 97.7 70 20 118/60 95 Intake & Output 09/09 1600 09/09 0800 09/09 0000 09/08 1600 09/08 0800 09/08 0000 Intake Total 1000 441 415 2811 1400 Output Total 250 Balance 1000 948 385 8251 1400 Intake, IV 4590 520 2597 1000 Intake, Oral 200 400 Number 4 Bowel Movements Output, Urine 250 Patient 121 lb Weight Physical Exam: gen: thin. looks tired. no distress. heent; anicteric, perrl. eomi abd; flat, soft, minimal tenderness lower abdomen. nondistended. ext; no c/c/e Results Last 48 Hours of Labs: Laboratory Tests 09/09 09/09 0644 0200 Chemistry Sodium (137 - 145 mmol/L) 142 Potassium (3.5 - 5.1 mmol/L) 3.5 Chloride (98 - 107 mmol/L) 108 H Carbon Dioxide (22 - 30 mmol/L) 27 Anion Gap (5 - 16) 6 BUN (7 - 17 mg/dL) 3 L Creatinine (0.5 - 1.0 mg/dL) 0.6 Estimated GFR (>60 ml/min) > 60 BUN/Creatinine Ratio (7 - 25 %) 5.0 L Hematology CBC w Diff MAN DIFF ORDERED NO MAN DIFF REQ WBC (4.8 - 10.8 /CUMM) 16.8 H 17.7 H RBC (4.20 - 5.40 /CUMM) 3.77 L 3.36 L Hgb (12.0 - 16.0 G/DL) 11.3 L 10.1 L Hct (37 - 47 %) 34.1 L 30.4 L MCV (81.0 - 99.0 FL) 90.4 90.4 MCH (27.0 - 31.0 PG) 29.8 30.1 RDW (11.5 - 14.5 %) 13.9 13.9 Plt Count (130 - 400 /CUMM) 301 265 MPV (7.4 - 10.4 FL) 8.1 7.5 Gran % (42.2 - 75.2 %) 83.2 H 82.4 H Lymphocytes % (20.5 - 51.1 %) 8.3 L 7.7 L Monocytes % (1.7 - 9.3 %) 6.9 8.3 Eosinophils % (0 - 5 %) 1.3 1.4 Basophils % (0.0 - 2.0 %) 0.3 0.2 Absolute Granulocytes (1.4 - 6.5 /CUMM) 14.0 H 14.6 H Segmented Neutrophils (42.2 - 75.2 %) 86 H Band Neutrophils (0.0 - 5.0 %) 7 H Absolute Lymphocytes (1.2 - 3.4 /CUMM) 1.4 1.4 Lymphocytes (20.5 - 51.1 %) 3 L Monocytes (1.7 - 9.3 %) 2 Absolute Monocytes (0.10 - 0.60 /CUMM) 1.2 H 1.5 H Eosinophils (0 - 5.0 %) 2 Absolute Eosinophils (0.0 - 0.7 /CUMM) 0.2 0.2 Absolute Basophils (0.0 - 0.2 /CUMM) 0 0 Platelet Estimate (ADEQUATE) ADEQUATE Normocytic RBCs VERIFIED Normochromic RBCs VERIFIED PUBS MCHC (33.0 - 37.0 G/DL) 33.0 33.3 09/08 09/08 1830 0620 Chemistry Sodium (137 - 145 mmol/L) 139 Potassium (3.5 - 5.1 mmol/L) 3.4 L Chloride (98 - 107 mmol/L) 109 H Carbon Dioxide (22 - 30 mmol/L) 26 Anion Gap (5 - 16) 5 BUN (7 - 17 mg/dL) 4 L Creatinine (0.5 - 1.0 mg/dL) 0.6 Estimated GFR (>60 ml/min) > 60 BUN/Creatinine Ratio (7 - 25 %) 6.7 L Total Bilirubin (0.2 - 1.3 mg/dL) 0.3 Direct Bilirubin (< 0.4 mg/dL) 0.3 AST (14 - 36 U/L) 12 L ALT (9 - 52 U/L) 28 Alkaline Phosphatase (<127 U/L) 68 Total Protein (6.3 - 8.2 g/dL) 4.7 L Albumin (3.5 - 5.0 g/dL) 2.3 L Hematology CBC w Diff NO MAN DIFF REQ NO MAN DIFF REQ WBC (4.8 - 10.8 /CUMM) 18.3 H 20.2 H RBC (4.20 - 5.40 /CUMM) 3.41 L 3.67 L Hgb (12.0 - 16.0 G/DL) 10.2 L 10.9 L Hct (37 - 47 %) 30.9 L 33.3 L MCV (81.0 - 99.0 FL) 90.5 90.9 MCH (27.0 - 31.0 PG) 29.9 29.8 RDW (11.5 - 14.5 %) 14.2 14.3 Plt Count (130 - 400 /CUMM) 257 250 MPV (7.4 - 10.4 FL) 7.6 8.0 Gran % (42.2 - 75.2 %) 85.2 H 84.8 H Lymphocytes % (20.5 - 51.1 %) 5.6 L 7.0 L Monocytes % (1.7 - 9.3 %) 8.5 7.2 Eosinophils % (0 - 5 %) 0.6 0.9 Basophils % (0.0 - 2.0 %) 0.1 0.1 Absolute Granulocytes (1.4 - 6.5 /CUMM) 15.6 H 17.1 H Absolute Lymphocytes (1.2 - 3.4 /CUMM) 1.0 L 1.4 Absolute Monocytes (0.10 - 0.60 /CUMM) 1.6 H 1.5 H Absolute Eosinophils (0.0 - 0.7 /CUMM) 0.1 0.2 Absolute Basophils (0.0 - 0.2 /CUMM) 0 0 PUBS MCHC (33.0 - 37.0 G/DL) 33.0 32.7 L 16 09/07 2255 1700 Chemistry Sodium (137 - 145 mmol/L) 136 L Potassium (3.5 - 5.1 mmol/L) 3.4 L Chloride (98 - 107 mmol/L) 105 Carbon Dioxide (22 - 30 mmol/L) 23 Anion Gap (5 - 16) 8 BUN (7 - 17 mg/dL) 5 L Creatinine (0.5 - 1.0 mg/dL) 0.6 Estimated GFR (>60 ml/min) > 60 BUN/Creatinine Ratio (7 - 25 %) 8.3 Lactic Acid (0.7 - 2.1 mmol/L) 0.7 Total Bilirubin (0.2 - 1.3 mg/dL) 0.3 Direct Bilirubin (< 0.4 mg/dL) 0.3 AST (14 - 36 U/L) 16 ALT (9 - 52 U/L) 30 Alkaline Phosphatase (<127 U/L) 64 Total Protein (6.3 - 8.2 g/dL) 5.3 L Albumin (3.5 - 5.0 g/dL) 2.7 L Hematology CBC w Diff MAN DIFF ORDERED Cancelled WBC (4.8 - 10.8 /CUMM) 23.8 H Cancelled RBC (4.20 - 5.40 /CUMM) 3.84 L Cancelled Hgb (12.0 - 16.0 G/DL) 11.4 L Cancelled Hct (37 - 47 %) 34.7 L Cancelled MCV (81.0 - 99.0 FL) 90.4 Cancelled MCH (27.0 - 31.0 PG) 29.7 Cancelled RDW (11.5 - 14.5 %) 14.3 Cancelled Plt Count (130 - 400 /CUMM) 249 Cancelled MPV (7.4 - 10.4 FL) 7.9 Cancelled Gran % (42.2 - 75.2 %) 90.2 H Lymphocytes % (20.5 - 51.1 %) 3.1 L Monocytes % (1.7 - 9.3 %) 6.2 Eosinophils % (0 - 5 %) 0.2 Basophils % (0.0 - 2.0 %) 0.3 Absolute Granulocytes (1.4 - 6.5 /CUMM) 21.5 H Segmented Neutrophils (42.2 - 75.2 %) 77 H Band Neutrophils (0.0 - 5.0 %) 16 H Absolute Lymphocytes (1.2 - 3.4 /CUMM) 0.7 L Lymphocytes (20.5 - 51.1 %) 3 L Monocytes (1.7 - 9.3 %) 4 Absolute Monocytes (0.10 - 0.60 /CUMM) 1.5 H Absolute Eosinophils (0.0 - 0.7 /CUMM) 0.1 Absolute Basophils (0.0 - 0.2 /CUMM) 0.1 Platelet Estimate (ADEQUATE) ADEQUATE Normocytic RBCs VERIFIED Normochromic RBCs VERIFIED PUBS MCHC (33.0 - 37.0 G/DL) 32.8 L Cancelled 09/07 09/07 1431 1400 Hematology CBC w Diff MAN DIFF ORDERED Cancelled WBC (4.8 - 10.8 /CUMM) 23.8 H Cancelled RBC (4.20 - 5.40 /CUMM) 3.57 L Cancelled Hgb (12.0 - 16.0 G/DL) 10.8 L Cancelled Hct (37 - 47 %) 32.0 L Cancelled MCV (81.0 - 99.0 FL) 89.7 Cancelled MCH (27.0 - 31.0 PG) 30.3 Cancelled RDW (11.5 - 14.5 %) 13.8 Cancelled Plt Count (130 - 400 /CUMM) 269 Cancelled MPV (7.4 - 10.4 FL) 7.7 Cancelled Gran % (42.2 - 75.2 %) 87.2 H Lymphocytes % (20.5 - 51.1 %) 5.7 L Monocytes % (1.7 - 9.3 %) 6.5 Eosinophils % (0 - 5 %) 0.5 Basophils % (0.0 - 2.0 %) 0.1 Absolute Granulocytes (1.4 - 6.5 /CUMM) 20.8 H Segmented Neutrophils (42.2 - 75.2 %) 82 H Band Neutrophils (0.0 - 5.0 %) 9 H Absolute Lymphocytes (1.2 - 3.4 /CUMM) 1.4 Lymphocytes (20.5 - 51.1 %) 6 L Monocytes (1.7 - 9.3 %) 3 Absolute Monocytes (0.10 - 0.60 /CUMM) 1.6 H Absolute Eosinophils (0.0 - 0.7 /CUMM) 0.1 Absolute Basophils (0.0 - 0.2 /CUMM) 0 Platelet Estimate (ADEQUATE) VERIFIED BY SMEAR Normocytic RBCs VERIFIED Normochromic RBCs VERIFIED PUBS MCHC (33.0 - 37.0 G/DL) 33.7 Cancelled Assessment/Plan Assessment/Plan Improved colitis. Stool cutures pending. Continue medical management of presumed ischemic colitis pending cultures. Consider institution of diet tomorrow pending further improvement.
--- NOTE | 2016-09-09 13:22 | PN- Gastroenterology ---
Assessment/Plan Assessment/Recommendations: Assessment: Ms. Roberts is a 60 year old female with ischemic colitis. She underwent a limited flexible sigmoidoscopy which was negative for active bleeding. While the scope could not be advanced to confirm the diagnosis her clinical course is consistent with that of ischemic colitis and I don't feel that any further diagnostic testing is necessary at this time. Also as she is clinically improved and her WBC is improving I feel that her abx can be changed to oral abx to complete a 5 day course (ie. 1-2 more days). Recommendations: 1. Advance diet as tolerated 2. Change IV abx to PO cipro/flagyl for an additional 48 hours and then d/c 3. Notify GI for hemodynamically significant bleeding 4. Analgesia as needed 5. Follow CBC 6. If she continues to improve consideration should be given to discharge her later today in the am to follow up for a full colonoscopy as an outpatient. I will continue to follow this patient and make further recommendations based on her clinical course and results of repeat blood work. Subjective Subjective: Pt is feeling better this am from a pain standpoint. She is without any further rectal bleeding, but continues to have some loose stool. She is tolerating a bland diet without any vomiting. Objective Vital Signs and I&Os Vital Signs Date Time Temp Pulse Resp B/P Pulse O2 O2 Flow FiO2 Ox Delivery Rate 09/09 0638 99.1 81 20 134/70 96 Room Air 09/08 2253 99.3 90 20 140/78 96 Room Air 09/08 1900 77 09/08 1455 97.7 70 20 118/60 95 Intake & Output 09/09 1600 09/09 0400 09/08 1600 09/08 0400 09/07 1600 09/07 0400 Intake Total 6801 083 4029 1400 2200 1020 Output Total 250 550 400 Balance 3371 340 8108 1400 1650 620 Intake, IV 1000 1750 1000 2200 1020 Intake, Oral 200 400 Number 4 0 Bowel Movements Output, Urine 250 550 400 Patient 121 lb 122 lb Weight Physical Exam General Appearance: well developed/nourished, no apparent distress, alert, comfortable Head: atraumatic, normal appearance Neck: normal inspection, supple, full range of motion Respiratory: normal breath sounds, chest non-tender Cardiovascular: regular rate/rhythm Abdomen: normal bowel sounds, soft, non-tender Extremities: normal inspection, no edema Skin: intact, normal color Current Medications: Current Medications Sig/Sun Start time Last Medication Dose Route Stop Time Status Admin Acetaminophen 1,000 MG Q6P PRN 09/08 1600 AC 09/08 N/A 1 UNIT IV 2137 Acetaminophen 1,000 MG Q6P PRN 09/06 2345 DC 09/08 N/A 1 UNIT IV 1456 Ceftriaxone Sodium 1,000 MG DAILY 09/07 1000 AC 09/09 IV 1014 Chlorhexidine 1 GM .STK-MED ONE 09/08 1400 DC Gluconate TOP 09/08 1401 Diphenhydramine HCl 25 MG Q6P PRN 09/06 2130 AC IV Fluticasone 2 SPRAY DAILY 09/07 1000 AC 09/09 Propionate JOSÉ MANUEL 1014 Hydromorphone HCl 0.6 MG Q3P PRN 09/08 1000 DC IV Metoclopramide HCl 10 MG .STK-MED ONE 09/08 1447 DC IM 09/08 1448 Metoclopramide HCl 10 MG Q6P PRN 09/06 2145 AC 09/09 IV 0527 Metronidazole 500 MG Q8 09/07 0600 AC 09/09 N/A 1 UNIT IV 0520 Montelukast Sodium 10 MG DAILY 09/07 1000 AC 09/09 PO 1014 Morphine Sulfate 2 MG Q2P PRN 09/08 1745 AC IV Ondansetron HCl 4 MG .STK-MED ONE 09/09 0309 DC IM 09/09 0310 Ondansetron HCl 4 MG Q6P PRN 09/08 1000 AC 09/09 IV 0316 Potassium Chloride 20 MEQ Q8H 09/07 1030 AC 09/09 Dextrose/Sodium 1,000 ML IV 0520 Chloride Sumatriptan Succinate 100 MG DAILY NEEDED 09/07 1830 AC 09/07 PO 1835 Results Pertinent Lab Results: Laboratory Tests 09/09 09/09 0644 0200 Chemistry Sodium (137 - 145 mmol/L) 142 Potassium (3.5 - 5.1 mmol/L) 3.5 Chloride (98 - 107 mmol/L) 108 H Carbon Dioxide (22 - 30 mmol/L) 27 Anion Gap (5 - 16) 6 BUN (7 - 17 mg/dL) 3 L Creatinine (0.5 - 1.0 mg/dL) 0.6 Estimated GFR (>60 ml/min) > 60 BUN/Creatinine Ratio (7 - 25 %) 5.0 L Hematology CBC w Diff MAN DIFF ORDERED NO MAN DIFF REQ WBC (4.8 - 10.8 /CUMM) 16.8 H 17.7 H RBC (4.20 - 5.40 /CUMM) 3.77 L 3.36 L Hgb (12.0 - 16.0 G/DL) 11.3 L 10.1 L Hct (37 - 47 %) 34.1 L 30.4 L MCV (81.0 - 99.0 FL) 90.4 90.4 MCH (27.0 - 31.0 PG) 29.8 30.1 RDW (11.5 - 14.5 %) 13.9 13.9 Plt Count (130 - 400 /CUMM) 301 265 MPV (7.4 - 10.4 FL) 8.1 7.5 Gran % (42.2 - 75.2 %) 83.2 H 82.4 H Lymphocytes % (20.5 - 51.1 %) 8.3 L 7.7 L Monocytes % (1.7 - 9.3 %) 6.9 8.3 Eosinophils % (0 - 5 %) 1.3 1.4 Basophils % (0.0 - 2.0 %) 0.3 0.2 Absolute Granulocytes (1.4 - 6.5 /CUMM) 14.0 H 14.6 H Segmented Neutrophils (42.2 - 75.2 %) 86 H Band Neutrophils (0.0 - 5.0 %) 7 H Absolute Lymphocytes (1.2 - 3.4 /CUMM) 1.4 1.4 Lymphocytes (20.5 - 51.1 %) 3 L Monocytes (1.7 - 9.3 %) 2 Absolute Monocytes (0.10 - 0.60 /CUMM) 1.2 H 1.5 H Eosinophils (0 - 5.0 %) 2 Absolute Eosinophils (0.0 - 0.7 /CUMM) 0.2 0.2 Absolute Basophils (0.0 - 0.2 /CUMM) 0 0 Platelet Estimate (ADEQUATE) ADEQUATE Normocytic RBCs VERIFIED Normochromic RBCs VERIFIED PUBS MCHC (33.0 - 37.0 G/DL) 33.0 33.3 09/08 09/08 1830 0620 Chemistry Sodium (137 - 145 mmol/L) 139 Potassium (3.5 - 5.1 mmol/L) 3.4 L Chloride (98 - 107 mmol/L) 109 H Carbon Dioxide (22 - 30 mmol/L) 26 Anion Gap (5 - 16) 5 BUN (7 - 17 mg/dL) 4 L Creatinine (0.5 - 1.0 mg/dL) 0.6 Estimated GFR (>60 ml/min) > 60 BUN/Creatinine Ratio (7 - 25 %) 6.7 L Total Bilirubin (0.2 - 1.3 mg/dL) 0.3 Direct Bilirubin (< 0.4 mg/dL) 0.3 AST (14 - 36 U/L) 12 L ALT (9 - 52 U/L) 28 Alkaline Phosphatase (<127 U/L) 68 Total Protein (6.3 - 8.2 g/dL) 4.7 L Albumin (3.5 - 5.0 g/dL) 2.3 L Hematology CBC w Diff NO MAN DIFF REQ NO MAN DIFF REQ WBC (4.8 - 10.8 /CUMM) 18.3 H 20.2 H RBC (4.20 - 5.40 /CUMM) 3.41 L 3.67 L Hgb (12.0 - 16.0 G/DL) 10.2 L 10.9 L Hct (37 - 47 %) 30.9 L 33.3 L MCV (81.0 - 99.0 FL) 90.5 90.9 MCH (27.0 - 31.0 PG) 29.9 29.8 RDW (11.5 - 14.5 %) 14.2 14.3 Plt Count (130 - 400 /CUMM) 257 250 MPV (7.4 - 10.4 FL) 7.6 8.0 Gran % (42.2 - 75.2 %) 85.2 H 84.8 H Lymphocytes % (20.5 - 51.1 %) 5.6 L 7.0 L Monocytes % (1.7 - 9.3 %) 8.5 7.2 Eosinophils % (0 - 5 %) 0.6 0.9 Basophils % (0.0 - 2.0 %) 0.1 0.1 Absolute Granulocytes (1.4 - 6.5 /CUMM) 15.6 H 17.1 H Absolute Lymphocytes (1.2 - 3.4 /CUMM) 1.0 L 1.4 Absolute Monocytes (0.10 - 0.60 /CUMM) 1.6 H 1.5 H Absolute Eosinophils (0.0 - 0.7 /CUMM) 0.1 0.2 Absolute Basophils (0.0 - 0.2 /CUMM) 0 0 PUBS MCHC (33.0 - 37.0 G/DL) 33.0 32.7 L 09/07 09/07 2255 1700 Chemistry Sodium (137 - 145 mmol/L) 136 L Potassium (3.5 - 5.1 mmol/L) 3.4 L Chloride (98 - 107 mmol/L) 105 Carbon Dioxide (22 - 30 mmol/L) 23 Anion Gap (5 - 16) 8 BUN (7 - 17 mg/dL) 5 L Creatinine (0.5 - 1.0 mg/dL) 0.6 Estimated GFR (>60 ml/min) > 60 BUN/Creatinine Ratio (7 - 25 %) 8.3 Lactic Acid (0.7 - 2.1 mmol/L) 0.7 Total Bilirubin (0.2 - 1.3 mg/dL) 0.3 Direct Bilirubin (< 0.4 mg/dL) 0.3 AST (14 - 36 U/L) 16 ALT (9 - 52 U/L) 30 Alkaline Phosphatase (<127 U/L) 64 Total Protein (6.3 - 8.2 g/dL) 5.3 L Albumin (3.5 - 5.0 g/dL) 2.7 L Hematology CBC w Diff MAN DIFF ORDERED Cancelled WBC (4.8 - 10.8 /CUMM) 23.8 H Cancelled RBC (4.20 - 5.40 /CUMM) 3.84 L Cancelled Hgb (12.0 - 16.0 G/DL) 11.4 L Cancelled Hct (37 - 47 %) 34.7 L Cancelled MCV (81.0 - 99.0 FL) 90.4 Cancelled MCH (27.0 - 31.0 PG) 29.7 Cancelled RDW (11.5 - 14.5 %) 14.3 Cancelled Plt Count (130 - 400 /CUMM) 249 Cancelled MPV (7.4 - 10.4 FL) 7.9 Cancelled Gran % (42.2 - 75.2 %) 90.2 H Lymphocytes % (20.5 - 51.1 %) 3.1 L Monocytes % (1.7 - 9.3 %) 6.2 Eosinophils % (0 - 5 %) 0.2 Basophils % (0.0 - 2.0 %) 0.3 Absolute Granulocytes (1.4 - 6.5 /CUMM) 21.5 H Segmented Neutrophils (42.2 - 75.2 %) 77 H Band Neutrophils (0.0 - 5.0 %) 16 H Absolute Lymphocytes (1.2 - 3.4 /CUMM) 0.7 L Lymphocytes (20.5 - 51.1 %) 3 L Monocytes (1.7 - 9.3 %) 4 Absolute Monocytes (0.10 - 0.60 /CUMM) 1.5 H Absolute Eosinophils (0.0 - 0.7 /CUMM) 0.1 Absolute Basophils (0.0 - 0.2 /CUMM) 0.1 Platelet Estimate (ADEQUATE) ADEQUATE Normocytic RBCs VERIFIED Normochromic RBCs VERIFIED PUBS MCHC (33.0 - 37.0 G/DL) 32.8 L Cancelled 09/07 09/07 1431 1400 Hematology CBC w Diff MAN DIFF ORDERED Cancelled WBC (4.8 - 10.8 /CUMM) 23.8 H Cancelled RBC (4.20 - 5.40 /CUMM) 3.57 L Cancelled Hgb (12.0 - 16.0 G/DL) 10.8 L Cancelled Hct (37 - 47 %) 32.0 L Cancelled MCV (81.0 - 99.0 FL) 89.7 Cancelled MCH (27.0 - 31.0 PG) 30.3 Cancelled RDW (11.5 - 14.5 %) 13.8 Cancelled Plt Count (130 - 400 /CUMM) 269 Cancelled MPV (7.4 - 10.4 FL) 7.7 Cancelled Gran % (42.2 - 75.2 %) 87.2 H Lymphocytes % (20.5 - 51.1 %) 5.7 L Monocytes % (1.7 - 9.3 %) 6.5 Eosinophils % (0 - 5 %) 0.5 Basophils % (0.0 - 2.0 %) 0.1 Absolute Granulocytes (1.4 - 6.5 /CUMM) 20.8 H Segmented Neutrophils (42.2 - 75.2 %) 82 H Band Neutrophils (0.0 - 5.0 %) 9 H Absolute Lymphocytes (1.2 - 3.4 /CUMM) 1.4 Lymphocytes (20.5 - 51.1 %) 6 L Monocytes (1.7 - 9.3 %) 3 Absolute Monocytes (0.10 - 0.60 /CUMM) 1.6 H Absolute Eosinophils (0.0 - 0.7 /CUMM) 0.1 Absolute Basophils (0.0 - 0.2 /CUMM) 0 Platelet Estimate (ADEQUATE) VERIFIED BY SMEAR Normocytic RBCs VERIFIED Normochromic RBCs VERIFIED PUBS MCHC (33.0 - 37.0 G/DL) 33.7 Cancelled 09/07 09/07 09/06 0800 0005 2054 Chemistry Sodium (137 - 145 mmol/L) 137 Potassium (3.5 - 5.1 mmol/L) 3.3 L Chloride (98 - 107 mmol/L) 108 H Carbon Dioxide (22 - 30 mmol/L) 25 Anion Gap (5 - 16) 5 BUN (7 - 17 mg/dL) 8 Creatinine (0.5 - 1.0 mg/dL) 0.7 Estimated GFR (>60 ml/min) > 60 BUN/Creatinine Ratio (7 - 25 %) 11.4 Lactic Acid (0.7 - 2.1 mmol/L) 0.6 L 0.7 Troponin I (< 0.11 ng/ml) < 0.01 Hematology CBC w Diff MAN DIFF ORDERED WBC (4.8 - 10.8 /CUMM) 23.8 H RBC (4.20 - 5.40 /CUMM) 3.71 L Hgb (12.0 - 16.0 G/DL) 11.1 L Hct (37 - 47 %) 33.4 L MCV (81.0 - 99.0 FL) 90.0 MCH (27.0 - 31.0 PG) 30.0 RDW (11.5 - 14.5 %) 13.9 Plt Count (130 - 400 /CUMM) 263 MPV (7.4 - 10.4 FL) 7.9 Gran % (42.2 - 75.2 %) 86.9 H Lymphocytes % (20.5 - 51.1 %) 6.1 L Monocytes % (1.7 - 9.3 %) 6.7 Eosinophils % (0 - 5 %) 0.2 Basophils % (0.0 - 2.0 %) 0.1 Absolute Granulocytes (1.4 - 6.5 /CUMM) 20.7 H Segmented Neutrophils (42.2 - 75.2 %) 73 Band Neutrophils (0.0 - 5.0 %) 11 H Absolute Lymphocytes (1.2 - 3.4 /CUMM) 1.4 Lymphocytes (20.5 - 51.1 %) 9 L Monocytes (1.7 - 9.3 %) 5 Absolute Monocytes (0.10 - 0.60 /CUMM) 1.6 H Eosinophils (0 - 5.0 %) 1 Absolute Eosinophils (0.0 - 0.7 /CUMM) 0 Basophils (0.0 - 2.0 %) 1 Absolute Basophils (0.0 - 0.2 /CUMM) 0 Platelet Estimate (ADEQUATE) ADEQUATE Normocytic RBCs VERIFIED Normochromic RBCs VERIFIED PUBS MCHC (33.0 - 37.0 G/DL) 33.3 09/06 09/06 1940 1719 Chemistry Lactic Acid (0.7 - 2.1 mmol/L) 1.7 Urines Urine Color (YEL,AMB,STR) YEL Urine Clarity (CLEAR) HAZY H Urine pH (5.0 - 8.0) 6.0 Ur Specific Thornton (1.001 - 1.035) 1.010 Urine Protein (NEG,<30 MG/DL) NEG Urine Ketones (NEG) 15 H Urine Nitrite (NEG) NEG Urine Bilirubin (NEG) NEG@ICTO Urine Urobilinogen (0.1 - 1.0 EU/dl) 0.2 Ur Leukocyte Esterase (NEG) NEG Ur Microscopic SEDIMENT EXAMINED Urine RBC (0 - 5 /HPF) 1-3 Urine WBC (0 - 2 /HPF) 1-3 H Urine Mucus (FEW,NONE) FEW Urine Hemoglobin (NEG) SMALL H Urine Glucose (N MG/DL) NEG 09/06 1615 Chemistry Sodium (137 - 145 mmol/L) 138 Potassium (3.5 - 5.1 mmol/L) 3.9 Chloride (98 - 107 mmol/L) 105 Carbon Dioxide (22 - 30 mmol/L) 27 Anion Gap (5 - 16) 7 BUN (7 - 17 mg/dL) 17 Creatinine (0.5 - 1.0 mg/dL) 0.7 Estimated GFR (>60 ml/min) > 60 BUN/Creatinine Ratio (7 - 25 %) 24.3 Glucose (65 - 99 mg/dL) 96 Calcium (8.4 - 10.2 mg/dL) 10.0 Total Bilirubin (0.2 - 1.3 mg/dL) 0.7 Direct Bilirubin (< 0.4 mg/dL) 0.3 AST (14 - 36 U/L) 21 ALT (9 - 52 U/L) 28 Alkaline Phosphatase (<127 U/L) 68 Total Protein (6.3 - 8.2 g/dL) 6.9 Albumin (3.5 - 5.0 g/dL) 3.9 Globulin (1.9 - 4.2 gm/dL) 3.0 Albumin/Globulin Ratio (1.1 - 2.2 %) 1.3 Amylase (30 - 110 U/L) 40 Lipase (23 - 300 U/L) 37 Coagulation PT (9.4 - 12.5 SEC) 10.7 INR (0.90 - 1.19) 1.02 APTT (25 - 37 SEC) 31 Hematology CBC w Diff MAN DIFF ORDERED WBC (4.8 - 10.8 /CUMM) 24.7 H RBC (4.20 - 5.40 /CUMM) 4.64 Hgb (12.0 - 16.0 G/DL) 13.7 Hct (37 - 47 %) 41.8 MCV (81.0 - 99.0 FL) 90.1 MCH (27.0 - 31.0 PG) 29.5 RDW (11.5 - 14.5 %) 13.9 Plt Count (130 - 400 /CUMM) 333 MPV (7.4 - 10.4 FL) 8.0 Gran % (42.2 - 75.2 %) 91.7 H Lymphocytes % (20.5 - 51.1 %) 3.2 L Monocytes % (1.7 - 9.3 %) 5.0 Eosinophils % (0 - 5 %) 0 Basophils % (0.0 - 2.0 %) 0.1 Absolute Granulocytes (1.4 - 6.5 /CUMM) 22.7 H Segmented Neutrophils (42.2 - 75.2 %) 85 H Band Neutrophils (0.0 - 5.0 %) 6 H Absolute Lymphocytes (1.2 - 3.4 /CUMM) 0.8 L Lymphocytes (20.5 - 51.1 %) 5 L Monocytes (1.7 - 9.3 %) 4 Absolute Monocytes (0.10 - 0.60 /CUMM) 1.2 H Absolute Eosinophils (0.0 - 0.7 /CUMM) 0 Absolute Basophils (0.0 - 0.2 /CUMM) 0 Platelet Estimate (ADEQUATE) VERIFIED BY SMEAR Normocytic RBCs VERIFIED Normochromic RBCs VERIFIED PUBS MCHC (33.0 - 37.0 G/DL) 32.8 L Other Body Source Fld Total RBCs Counted (%) 100
[2016-09-09 14:09] VITALS: BP 120/70
[2016-09-09 22:26] VITALS: BP 124/70
--- NOTE | 2016-09-09 22:29 | NUR ---
CALLED INTO ROOM BY PATIENT AT THIS TIME FOR C/O ITCHING AND RASH TO "RIGHT LEG" RAISED RED RASH NOTED TO LOWER AND UPPER RIGHT LEG, UPPER LEFT LEG, AND BACK OF RIGHT UPPER ARM. STATES THAT SHE JUST NOTICED IT. NO SOB, ORAL TEMP 99.2, BP 124/70 HR 77, NO OTHER C/O. CALL PLACED TO PAPER BALING MACHINE OPERATOR AT THIS TIME TO MAKE AWARE. PLAN IS TO WATCH RASH FOR THE NEXT HOUR AND UPDATE IF WORSENS, OTHERWISE OBTAIN ORDER FOR BENEDRYL TO PREMEDICATE BEFORE NEXT DOSE. WILL CONTINUE TO MONITOR. INSTRUCTED PATIENT TO CALL WITH ANY CHANGES.
--- NOTE | 2016-09-10 00:43 | NUR ---
AT 2330 PATIENT STILL COMPLAINING OF ITCHINESS AND RASH TO BLE AND RUE. PT ALSO STATED THAT SHE FELT THE RASH WAS WORSENING ONTO HER CHIN AND CHEST. MD BEDOLLA AWARE. IV BENADRYL GIVEN. WILL CONTINUE TO CLOSELY MONITOR.
[2016-09-10 07:02] VITALS: BP 112/68
--- NOTE | 2016-09-10 07:26 | PN- General Surgery ---
See Addendum Subjective Subjective: The patient was seen this morning. She reports that her pain has almost completely resolved and she is much more comfortable than the day prior. She is tolerating a full liquid diet without nausea or increased pain. She is still having loose bowel movements without any blood noticed. Objective Vital Signs and I&Os Vital Signs Date Time Temp Pulse Resp B/P Pulse O2 O2 Flow FiO2 Ox Delivery Rate 09/10 0702 97.5 57 20 112/68 98 Room Air 09/09 2226 99.2 77 20 124/70 97 09/09 1409 98.2 66 20 120/70 98 Intake & Output 09/10 0800 09/10 0000 09/09 1600 09/09 0800 09/09 0000 09/08 1600 Intake Total 1360 1400 1550 1000 200 750 Output Total 250 Balance 1360 1400 1550 1000 200 500 Intake, IV 1000 1000 1000 1000 750 Intake, Oral 360 400 550 200 Number 3 4 Bowel Movements Output, Urine 250 Patient 121 lb Weight Physical Exam: Gen.: Alert and in no obvious distress Skin: Warm and dry Abdomen: Soft, nondistended, mild left lower quadrant tenderness to deep palpation without rebound or guarding, bowel sounds positive. Extremities: Bilateral lower extremities were warm without calf tenderness. Assessment/Plan Assessment/Plan Assessment: 60-year-old female being treated presumed for ischemic colitis. The patient is making progress and her physical exam continues to improve. Recommendations: May advance to regular diet Antibiotics per GI's notes from yesterday No surgical need at the current time Continue care per primary team
--- NOTE | 2016-09-10 08:26 | PN- Housestaff ---
NILES PETE,[facility] 09/10/16 0826: Subjective Follow-up For: Ischemic colitis Subjective: Patient was seen and examined today, she denied abdominal pain and bloody dirrhea today or yesterday. Patient tolerated regular diet well. patient will be discharged today. Vital signs are stable. Review of Systems Constitutional: Reports: see HPI. Objective Last 24 Hrs of Vital Signs/I&O Vital Signs Date Time Temp Pulse Resp B/P Pulse O2 O2 Flow FiO2 Ox Delivery Rate 09/10 0702 97.5 57 20 112/68 98 Room Air 09/09 2226 99.2 77 20 124/70 97 Intake & Output 09/10 1600 09/10 0800 09/10 0000 Intake Total 1225 1360 1400 Output Total Balance 1225 1360 1400 Intake, IV 625 1000 1000 Intake, Oral 600 360 400 Number Bowel Movements Physical Exam General Appearance: Alert, Oriented X3, Cooperative, No Acute Distress Skin: No Rashes, No Breakdown, No Significant Lesion HEENT: Atraumatic, PERRLA, EOMI, Mucous Membr. moist/pink Neck: Supple Cardiovascular: Regular Rate, Normal S1, Normal S2, No Murmurs Lungs: Clear to Auscultation, Normal Air Movement Abdomen: Normal Bowel Sounds, Soft, No Tenderness Neurological: Normal Gait, Normal Speech, Strength at 5/5 X4 Ext, Normal Tone, Sensation Intact, Cranial Nerves 3-12 NL, Reflexes 2+ Extremities: No Clubbing, No Cyanosis, No Edema, Normal Pulses Assessment/Plan Assessment: Assessment: This is a 60-year-old female with past medical history significant for asthma, hysterectomy, bilateral softening nephrectomy, long-term hormonal therapy, who comes in with chief complaint of LLQ abdominal pain. On admission: Vitals: 97.5, 77, 18, 130/83, 98. CBC shows white count 24.7, hemoglobin 13.7, hematocrit 41.8, platelet 333. INR 1.02, BEP within normal limits, -ve amylase lipase, and normal AST and ALT. CT ABD IMPRESSION: Diffuse mural thickening involving the transverse, descending and sigmoid colon suggestive of colitis from inflammatory or infectious process. In addition there is diffuse sigmoid and scattered distal descending colondiverticulosis but no suggestion for diverticulitis. There is haziness of theleft meso colon. No free air or free fluid seen. 6 small hypodense liver lesions probable tiny cyst. Slightly hyperdense lesion along the anterior gallbladder wall collectionpolyp, cyst or lytic underlying lesion. Recommend ultrasound correlation. Suspect two splenic artery aneurysms or dilated collateral veins. Problem list #Ischemic colitis -Patient denied any recent history of antibiotic use -Patient denied any recent history of outside food, travel history -GI consultation was obtained -Sigmoidoscopy was obtained 09/08 revealed sigmoid diverticulosis -H&H remained stable -Continue ceftriaxone and Flagyl day 5 -We discharge patient on Augmentin for 3 days -Pain control: Acetaminophen IV every 6 when necessary, Dilaudid 1 mg every 3 when necessary for severe pain -Patient is tolerating regular diet well, will discharge today #Hormone therapy -Patient was on hormonal therapy for 35 years -History of ovary cancer in sister, in her 30s -We'll DC hormonal therapy on discharge Full Code Diet regular diet Mech DVT prophylaxis Consultation GI, surgery Problem List: 1. Ischemic colitis Pain Ratin Pain Location: Abdominal pain Pain Goal: Pain 4 or less Pain Plan: Mild pain pathway Tomorrow's Labs & Rationales: None ZAINAB MARIO MD 09/10/16 1353: Attending MD Review Statement Attending Statement Attending MD Statement: examined this patient, discuss w/resident/PA/CORPORATE DIRECTOR TALENT ASSESSMENT, agreed w/resident/PA/CORPORATE DIRECTOR TALENT ASSESSMENT, discussed with family, reviewed EMR data (avail), discussed with nursing, amended to note Attending Assessment/Plan: The patient was seen and discussed with house staff. If tolerates solid food may discharge today on Augmentin (note mild reaction to Cipro last pm) for [address] Fernandez. Will need to discuss further her hormonal therapy which was her main risk factor for ischemic colitis.
[2016-09-10] MEDS ORDERED: AUGMENTIN 875-1 EACH PO ×2 (14:23→15:53)
--- NOTE | 2016-09-10 14:25 | Patient Discharge Instructions ---
Discharge Instructions General Discharge Information Special Instructions: -please follow up with your PCP within one week after discharge -Please follow up with your REGISTERED PHLEBOTOMIST PART TIME physician after discharge -Please follow up with GI specialist Dr. James after discharge -Please follow up with surgery Dr. Hines after discharge Acute Coronary Syndrome Inclusion Criteria At DC or during hospital stay patient has or had the following: ACS DIAGNOSIS No Discharge Core Measures Meds if any: Prescribed or Continued at Discharge Meds if any: NOT Prescribed or Continued at Discharge Congestive Heart Failure Inclusion Criteria At DC or during hospital stay patient has or had the following: CHF DIAGNOSIS No Discharge Core Measures Meds if any: Prescribed or Continued at Discharge Meds if any: NOT Prescribed or Continued at Discharge Cerebrovascular accident Inclusion Criteria At DC or during hospital stay patient has or had the following: CVA/TIA Diagnosis No Discharge Core Measures Meds if any: Prescribed or Continued at Discharge Meds if any: NOT Prescribed or Continued at Discharge Venous thromboembolism Inclusion Criteria VTE Diagnosis No VTE Type NONE VTE Confirmed by (Test) NONE Discharge Core Measures - Per Current guidelines, there needs to be overlap - treatment for the first 5 days of Warfarin therapy. - If discharged on Warfarin prior to 5 days of - overlap therapy, the patient will need to be - assessed for post discharge needs including - *Post discharge parental anticoagulation - *Warfarin and/or parental anticoagulation education - *Follow up date to check INR post discharge At least 5 days overlap therapy as Inpatient Yes Meds if any: Prescribed or Continued at Discharge Note: Overlap Therapy is Warfarin and Anticoagulant Meds if any: NOT Prescribed or Continued at Discharge
[2016-09-10 14:57] VITALS: BP 120/60
--- NOTE | 2016-09-10 22:49 | Discharge Summary ---
Visit Information Visit Dates Admission Date: 09/06/16 Discharge Date: 09/10/16 Hospital Course Course Attending Physician: ZAINAB MARIO MD Primary Care Physician: BLESSING PETE,[facility] Course: Ms. Pickard is 60-year-old female with past medical history significant for asthma , hysterectomy, bilateral salpingo-oophorectomy at age 33, long-term hormonal therapy, who comes in with chief complaint of acute onset of LLQ abdominal pain associated with watery diarrhea and bleeding per rectum. Patient reported chronic history of left lower quadrant pain, constipation, nausea and some weight loss for the last few month that never been investigated before. Patient reported history of chronic hematuria due to kidney stone. Patient denied any fever, vomiting, cough, chest pain, back pain, urinary urgency, frequency. Patient denied history of sick contact, outside food, travel history, recent use of antibiotic. Patient has significant family history of cancer. Father:prostate cancer, mother:lung cancer, sister:ovarian cancer and in her mid 30s. Additionally , another sister had "clotting problems," after 2 C-sections. Patient has been on hormonal therapy for years. On admission: Vitals: 97.5, 77, 18, 130/83, 98. CBC shows white count 24.7, hemoglobin 13.7, hematocrit 41.8, platelet 333. INR 1.02, BEP within normal limits, -ve amylase lipase, and normal AST and ALT. CT ABDOMEN AND PELVIS IMPRESSION: Diffuse mural thickening involving the transverse, descending and sigmoid colon suggestive of colitis from inflammatory or infectious process. In addition there is diffuse sigmoid and scattered distal descending colondiverticulosis but no suggestion for diverticulitis. There is haziness of theleft meso colon. No free air or free fluid seen. 6 small hypodense liver lesions probable tiny cyst. Slightly hyperdense lesion along the anterior gallbladder wall collectionpolyp, cyst or lytic underlying lesion. Recommend ultrasound correlation. Suspect two splenic artery aneurysms or dilated collateral veins. Problem list #Ischemic colitis -GI consultation was obtained, sigmoidoscopy was done on 09/08 revealed normal rectum, sigmoid diverticulosis with severe tortuosity/fixed angulation, no blood was noticed. -Sigmoidoscopy impression: Sigmoid diverticulosis, clinical picture consistent with ischemic colitis with risk factor being on hormone replacement which increases thromboembolic risk. -Surgical consultation was obtained, suggestion was to continue with medical management unless patient clinical condition deteriorate (fevers, tachycardia, hypotension, worsening peritonitis), then the surgical option would be colectomy with end colostomy. -H&H remained stable. -Patient was maintained nothing by mouth, diet was advanced as tolerated from clear, full and regular. -Antibiotic coverage ceftriaxone and Flagyl, was switched to oral Flagyl and ciprofloxacin, patient was discharged on Augmentin. -Optimal Pain control: Acetaminophen IV every 6 when necessary, Dilaudid 1 mg every 3 when necessary for severe pain. #Hormone therapy -Patient was on hormonal therapy for 35 years. -History of ovary cancer in sister, in her 30s. -Patient was instructed to discontinue the hormonal therapy and to follow up with her [employer] specialist. Full Code Diet regular diet DVT prophylaxis Alps Consultation GI, surgery Allergies: Coded Allergies: tramadol (UNKNOWN 10/28/15) Disposition Summary Disposition Principal Diagnosis: Ischemic colitis Additional Diagnosis: Hormonal therapy s/p total abdominal hysterectomy, bilateral salpingo- oophorectomy Discharge Disposition: home or self care Discharge Instructions General Discharge Information Code Status: Full Code Patient's Diet: Regular diet Patient's Activity: As tolerated Follow-Up Instructions/Appts: -please follow up with your PCP within one week after discharge -Please follow up with your [employer] physician after discharge -Please follow up with GI specialist Dr. James or Dr. Fernandez after discharge -Please follow up with surgery Dr. Genao after discharge Medications at Discharge Discharge Medications: Stop taking the following medications: Estradiol (Vivelle-Dot) 0.075 MG/24 HOUR PATCH.TDSW ORAL as needed for ESTROGEN Qty = 24 Continue taking these medications: Eletriptan HBr (Relpax) 40 MG TABLET 1 Tablet ORAL DAILY Qty = 36 Comments: not given in hospital Montelukast Sodium (Montelukast Sodium) 10 MG TABLET 1 Tablet ORAL DAILY Qty = 90 Comments: Last Taken: 09/10/16 Time: 11am Lisdexamfetamine Dimesylate (Vyvanse) 60 MG CAPSULE 1 Capsule ORAL Every Morning Qty = 30 Comments: not given in hospital Gabapentin Enacarbil (Horizant) 600 MG TABLET.ER 1 Tablet ORAL TWICE DAILY Qty = 90 Comments: Last Taken: 09/09/16 Time: 4pm only took one tablet Metaxalone (Skelaxin) 800 MG TABLET 1 Tablet ORAL THREE TIMES DAILY Comments: not given in hospital Start taking the following new medications: Amoxicillin/Potassium Clav (Augmentin 875-125 Tablet) 875 MG-125 MG TABLET 1 Tablet ORAL TWICE DAILY Qty = 6 No Refills Comments: given IV antibiotics in hospital. To start Augmentin at home. Copies To: BLESSING PTEE,YKOO; DARIO PETE,ROSE Montejo; CHEPE PETE,RAVEN GENAO MD,CARMELA Villegas Attending MD Review Statement Documenting Attending: ZAINAB MARIO MD Other Findings: The patient was seen on the day of discharge and agree with the plan of care as outlined.
== END 2016-09-10 16:14 | DRG 395 ==
LOC: ENRESERVTM → ENRESERVDT → ERH 15:12 → ERHI 21:10 → ENPENDDIS 21:10 → 2NA 21:10
PROVIDERS: Emergency Medicine; Internal Medicine Hematology & Oncology; Internal Medicine Interventional Cardiology; Student in an Organized Health Care Education/Training Program; ADMIT Internal Medicine
PROC: 0DJD8ZZ Inspection of Lower Intestinal Tract, Via Natural or Artificial Opening Endoscopic (ICD-10-PCS; principal; 2016-09-08)
DX: K55.9 Vascular disorder of intestine, unspecified (principal); J45.909 Unspecified asthma, uncomplicated; Z80.41 Family history of malignant neoplasm of ovary; Z80.1 Family history of malignant neoplasm of trachea, bronchus and lung; Z80.42 Family history of malignant neoplasm of prostate; K57.30 Diverticulosis of large intestine without perforation or abscess without bleeding; Z79.890 Hormone replacement therapy; R31.9 Hematuria, unspecified
CPT/HCPCS: 2NAP; 2NASP; 36415; 74177; 81001; 82436; 86902; 86920; 86922; 87040; 87045; 87086; 87328; 87329; 96361; 96365; 96375; 96376; J0131; J0696; J0744; J1200; J2405; J2765; J7040; J7042; J7060; S5012

== ENCOUNTER 2016-10-09 01:14 | Inpatient (IN) | payer OTHER ==
[~2016-10-09] VITALS: Ht 165.1 cm; Wt 52.6 kg
[~2016-10-09 01:14] MED LIST: AUGMENTIN 875-1 EACH PO; HORIZANT600 M1 PO; MONTELUKAST SOD10 M1 PO; RELPAX40 M1 PO; SKELAXIN800 M1 PO; VIVELLE-DOT1 EAC4 PO; VYVANSE60 M1 PO
[2016-10-09 02:03] LABS: ABSOLUTE BASOPHIL COUNT 0.1 /CUMM (0.0-0.2); ABSOLUTE EOSINOPHIL COUNT 0 /CUMM (0.0-0.7); ABSOLUTE GRANULOCYTE CT 14.8 /CUMM (1.4-6.5); ABSOLUTE LYMPH COUNT 0.7 /CUMM (1.2-3.4); ABSOLUTE MONOCYTE COUNT 0.9 /CUMM (0.10-0.60); BASOPHIL % 0.3 % (0.0-2.0); EOSINOPHIL % 0.2 % (0-5); GRANULOCYTE % 89.8 % (42.2-75.2); HEMATOCRIT 34.5 % (37-47); MEAN CORPUSCULAR HGB 30.1 PG (27.0-31.0); MEAN CORPUSCULAR HGB CONC 33.5 G/DL (33.0-37.0); MEAN CORPUSCULAR VOLUME 89.8 FL (81.0-99.0); MEAN PLATELET VOLUME 7.6 FL (7.4-10.4); PLATELET COUNT 249 /CUMM (130-400); RBC DISTRIBUTION WIDTH 14.6 % (11.5-14.5); RED BLOOD CELL CT 3.85 /CUMM (4.20-5.40)
--- NOTE | 2016-10-09 02:04 | ED GI/GU/ABDOMINAL COMPLAINT ---
History of Present Illness General Chief Complaint: Abdominal Pain/Flank Pain Stated Complaint: LOWER ABD PAIN Source: patient Exam Limitations: no limitations Vital Signs & Intake/Output Vital Signs & Intake/Output Vital Signs Date Time Temp Pulse Resp B/P Pulse O2 O2 Flow FiO2 Ox Delivery Rate 10/09 0509 98.6 85 18 90/50 95 Room Air 10/09 0136 98.4 89 22 118/77 97 Allergies Coded Allergies: ciprofloxacin (From CIPRO) (HIVES 10/09/16) tramadol (UNKNOWN 10/28/15) Reconcile Medications Amoxicillin/Potassium Clav (Augmentin 875-125 Tablet) 875 MG-125 MG TABLET 1 TAB PO BID blood infection Eletriptan HBr (Relpax) 40 MG TABLET 1 TAB PO DAILY MIGRAINES (Reported) Gabapentin Enacarbil (Horizant) 600 MG TABLET.ER 1 TAB PO BID NERVE PAIN ( Reported) Lisdexamfetamine Dimesylate (Vyvanse) 60 MG CAPSULE 1 CAP PO QAM NERVES ( Reported) Metaxalone (Skelaxin) 800 MG TABLET 1 TAB PO TID MUSCLE SPASM (Reported) Montelukast Sodium 10 MG TABLET 1 TAB PO DAILY ALLERGIES (Reported) Triage Note: PER PT ABD PAIN SINCE 1300. PER PT IN HOSPITAL 1 MONTH AGO FOR ISCHEMIC COLITIS, DROVE HOME FROM [place] TO COME TO HERE. CO ONLY OF NAUSEA Triage Nurses Notes Reviewed? yes ? n Is pt currently ? No Onset: Gradual Duration: hour(s): Timing: recent history Quality/Severity: cramping Location: left lower quadrant Radiation: no radiation Activities at Onset: none Prior Abdominal Problems: similar symptoms Modifying Factors: Worsens With: palpation. Associated Symptoms: abdominal pain HPI: 61 yo woman h/o ischemic colitis, presents with left lower quadrant abdominal pain, mild nausea, no diarrhea/constipation, which began yesterday afternoon. She notes that her symptoms are similar to her prior episode of ischemic colitis that resolved with iv abx and bowel rest. She has no fever, chills, vomiting, dysuria, rash. She is otherwise well. Past History Travel History Traveled to [place] past 21 day No Medical History Any Pertinent Medical History? see below for history Neurological: NONE EENT: NONE Cardiovascular: NONE Respiratory: asthma Gastrointestinal: ISCHEMIC COLITIS Hepatic: NONE Renal: NONE Musculoskeletal: NONE Psychiatric: NONE Endocrine: NONE History of MRSA: No History of VRE: No History of CDIFF: No Influenza Vaccine: 06/25/16 Surgical History Surgical History: spinal fusion (CERVICAL), hysterectomy, bilateral salpingo- oophorectomy CARPAL TUNNEL RELEASE Psychosocial History Who do you live with Family Services at Home None What is your primary language French Tobacco Use: Never used Family History Family History, If Any: Relation not specified for: FHx: cancer Hx Contributory? No Review of Systems Review of Systems Constitutional: Reports: no symptoms. EENTM: Reports: no symptoms. Respiratory: Reports: no symptoms. Cardiovascular: Reports: no symptoms. GI: Reports: no symptoms. Genitourinary: Reports: no symptoms. Musculoskeletal: Reports: no symptoms. Skin: Reports: no symptoms. Neurological/Psychological: Reports: no symptoms. Hematologic/Endocrine: Reports: no symptoms. Immunologic/Allergic: Reports: no symptoms. All Other Systems: Reviewed and Negative Physical Exam Physical Exam General Appearance: well developed/nourished, mild distress, moderate distress Head: atraumatic, normal appearance Eyes: Bilateral: normal appearance. Ears, Nose, Throat, Mouth: hearing grossly normal Neck: normal inspection, supple, full range of motion Respiratory: normal breath sounds, chest non-tender, no respiratory distress, quiet respiration, lungs clear Cardiovascular: regular rate/rhythm Gastrointestinal: normal bowel sounds, soft, left lower quadrant tenderness to palpation, mild rebound. mild distension Back: normal inspection, normal range of motion Extremities: normal range of motion Neurologic/Psych: no motor/sensory deficits, awake, alert, oriented x 3 Skin: intact, normal color, warm/dry Core Measures ACS in differential dx? No Severe Sepsis Present: No Septic Shock Present: No Progress Differential Diagnosis: ischemic colitis, diverticulitis, constipation vs other Plan of Care: Orders Procedure Date/time Status Nothing by Mouth 10/09 B Active Saline Lock 10/09 0515 Active Misc Message 10/09 0515 Active ED Holding Orders 10/09 0515 Active Admit to inpatient 10/09 0515 Active Vital Signs 10/09 0515 Active Code Status 10/09 0515 Active LACTIC ACID 10/09 0442 Complete BLOOD CULTURE 10/09 0435 Active BLOOD CULTURE 10/09 0433 Active EKG 10/09 0318 Active URINALYSIS 10/09 0142 Complete LIPASE 10/09 0142 Complete LACTIC ACID 10/09 0142 Complete COMPREHENSIVE METABOLIC PANEL 04/17 0142 Complete CBC WITHOUT DIFFERENTIAL 10/09 141 Complete AMYLASE 10/09 141 Complete Laboratory Tests 10/09/16 0440: Lactic Acid < 0.5 L 10/09/16 0341: Urinalysis LIGHT H, Urine Color STRAW, Urine Clarity CLEAR, Urine pH 6.5, Ur Specific [place] <= 1.005, Urine Protein NEG, Urine Ketones NEG, Urine Nitrite NEG, Urine Bilirubin NEG, Urine Urobilinogen 0.2, Ur Leukocyte Esterase NEG, Ur Microscopic SEDIMENT EXAMINED, Urine RBC 1-3, Urine WBC 1-3 H, Ur Epithelial Cells FEW, Urine Hemoglobin SMALL H, Urine Glucose NEG 10/09/16 0151: Anion Gap 10, Estimated GFR > 60, BUN/Creatinine Ratio 14.3, Glucose 117 H, Lactic Acid 0.8, Calcium 10.0, Total Bilirubin 0.6, AST 15, ALT 28, Alkaline Phosphatase 50, Total Protein 6.3, Albumin 3.7, Globulin 2.6, Albumin/Globulin Ratio 1.4, Amylase 45, Lipase 43, CBC w Diff MAN DIFF ORDERED, RBC 3.85 L, MCV 89.8, MCH 30.1, RDW 14.6 H, MPV 7.6, Gran % 89.8 H, Lymphocytes % 4.1 L, Monocytes % 5.6, Eosinophils % 0.2, Basophils % 0.3, Absolute Granulocytes 14.8 H, Segmented Neutrophils 84 H, Band Neutrophils 2, Absolute Lymphocytes 0.7 L, Lymphocytes 6 L, Monocytes 8, Absolute Monocytes 0.9 H, Absolute Eosinophils 0 , Absolute Basophils 0.1, Platelet Estimate ADEQUATE, Polychromasia 1+, Ovalocytes FEW, Stomatocytes FEW, PUBS MCHC 33.5, Fld Total RBCs Counted 100 Microbiology 10/09 449 BLOOD: Blood Culture - RECD 10/10 439 BLOOD: Blood Culture - RECD Diagnostic Imaging: Viewed by Me: CT Scan. Discussed w/RAD: CT Scan. Radiology Impression: abd/pelvic ct... sigmoid diverticulitis w/o perforation. Initial ED EKG: normal axis, normal intervals, normal p-waves, normal QRS complex, normal sinus rhythm Departure Departure Disposition: HOME OR SELF CARE Condition: Stable Clinical Impression Primary Impression: Diverticulitis Referrals: YOKO FUNK MD (PCP/Family) Departure Forms: Customer Survey General Discharge Information Comments DISCUSSED RESULTS WITH MS CEE.... PT STABLE FOR GEN MED. PT MERITS GI AND SURG CONSULTS. Admission Note Spoke With: JAMIA LAZAR MDRadha Documentation of Exam: Documentation of any treatments & extenuating circumstances including Concerns Regarding Discharge (functional status, medication knowledge or non-compliance, living conditions, etc.) that warrant an admission rather than observation: pt with diverticulitis... since this is a repeat GI infection with elevated wbc count... pt merits iv abx, bowel rest, gi and surgical consults. Stable for Gen Med.
[2016-10-09 02:06] LABS: WHITE BLOOD CELL COUNT 16.5 /CUMM (4.8-10.8)
--- NOTE | 2016-10-09 04:28 | CT SCAN REPORT ---
EXAMINATION: CT ABDOMEN AND PELVIS WITH CONTRAST CLINICAL INFORMATION: Ischemic colitis. COMPARISON: CT scan of abdomen and pelvis 09/22/2016. TECHNIQUE: Multidetector volumetric imaging was performed of the abdomen and pelvis before and after the IV administration of 90 mL of Optiray 320 intravenous contrast. Sagittal and coronal reformatted images were obtained on the technologist's workstation. DLP: 258.19 mGy-cm FINDINGS: LUNG BASES: There is minimal bibasilar subsegmental atelectasis. No pleural or pericardial effusion. LIVER, GALLBLADDER, AND BILIARY TREE: There are a few small well marginated benign-appearing cystic lesions within the liver that remain unchanged from prior imaging. There attenuation is otherwise homogeneous. There is no discrete solid liver mass. Focal thickening at the tip of the gallbladder fundus is redemonstrated. The gallbladder is otherwise normal. No abnormal intrahepatic or extrahepatic biliary ductal dilatation. PANCREAS: Unremarkable. SPLEEN: Unremarkable. ADRENAL GLANDS: Unremarkable. KIDNEYS AND URETERS: The kidneys demonstrate symmetric nephrographic enhancement. There is no hydroureteronephrosis. No abnormal perinephric inflammation or collection. There is no nephrolithiasis and no abnormal mass or calcification along the expected course of the right or left ureter. BLADDER: Unremarkable. GASTROINTESTINAL TRACT: There are numerous diverticula primarily involving the descending colon and sigmoid colon. There is inflammatory stranding associated with a short segment of the sigmoid colon best illustrated on coronal image 46 of 79 series 602 and axial image 69 of 89 series 2. These findings are consistent with acute diverticulitis. There is no drainable fluid collection. No free intraperitoneal air or fluid. The stomach and small bowel are unremarkable. The appendix is normal. ABDOMINAL WALL: The abdominal wall is intact. LYMPH NODES: There are no pathologically enlarged mesenteric or retroperitoneal lymph nodes. VASCULAR: A few scattered atheromatous calcification is visualized within the abdominal aorta. The inferior vena cava is unremarkable. PELVIC VISCERA: There chronic changes of a hysterectomy. No worrisome adnexal mass. OSSEOUS STRUCTURES: There is no lytic or blastic osseous lesion. No evidence of acute fracture. 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 IMPRESSION: There is acute diverticulitis of the sigmoid colon. No evidence of perforation. No free intraperineal air or fluid. Otherwise stable examination when compared to most recent prior CT scan of abdomen and pelvis from 09/22/2016. Thickening at the tip of the gallbladder fundus has remained unchanged over the course of multiple previous examinations consistent with adenomyomatosis.
[2016-10-09] MEDS ORDERED: NASONEX17 GM NASB (06:52)
[2016-10-09] MEDS ORDERED: BRISDELLE7.5 M1 PO (06:53)
[2016-10-09 07:59] VITALS: BP 110/60
--- NOTE | 2016-10-09 08:23 | History & Physical ---
LUCA PETE,TENZIN 10/09/16 0757: General Information and HPI MD Statement: I have seen and personally examined HOMER CEE and documented this H &P. The patient is a 61 year old F who presented with a patient stated chief complaint of abdominal pain[]. Source of Information: patient, old records History of Present Illness: 60-year-old female with past medical history asthma, seasonal allergies, total abdominal hysterectomy, bilateral salpingo-oophorectomy at age 33 recently discontinued hormone replacement after hospitalization August 2016, at that time treated for ischemic colitis. She states that since discharge has not felt normal with abdominal discomfort and pain at times. She is unable to eat meats and has been eating soft foods for comfort. She was given a prolonged treatment with antiboitics and stopped antiboitic use on 09/29/16. Today arrives to the ER from [place]. While there she developed LLQ abdominal pain radiating suprapubic which was 8/10. She was unable to tolerate oral intake. Her drove her to [facility]. Reports nausea, denies vomiting, diarrheal episodes, blood in stool. Reports feeling chills last night, denies fever episodes. Last BM was yesterday afternoon, which was well formed w/o blood. Denies chest pain, palpitations, lightheadedness. Reports history of renal stones, which have causes hematuria in the past. Denies urinary symptoms. Allergies/Medications Allergies: Coded Allergies: ciprofloxacin (From CIPRO) (HIVES 10/09/16) tramadol (UNKNOWN 10/28/15) Home Med list Eletriptan HBr (Relpax) 40 MG TABLET 1 TAB PO DAILY MIGRAINES (Reported) Gabapentin Enacarbil (Horizant) 600 MG TABLET.ER 1 TAB PO BID NERVE PAIN ( Reported) Lisdexamfetamine Dimesylate (Vyvanse) 60 MG CAPSULE 1 CAP PO QAM NERVES ( Reported) Metaxalone (Skelaxin) 800 MG TABLET 1 TAB PO TID MUSCLE SPASM (Reported) Mometasone Furoate (Nasonex) 50 MCG SPRAY.PUMP 1 SPRAY NASB DAILY allergies ( Reported) Montelukast Sodium 10 MG TABLET 1 TAB PO DAILY ALLERGIES (Reported) Paroxetine Mesylate (Brisdelle) 7.5 MG CAPSULE 1 TAB PO DAILY DEPRESSION ( Reported) Compliance With Home Meds: GOOD Past History Travel History Traveled to [place] past 21 day No Medical History Neurological: NONE EENT: NONE Cardiovascular: NONE Respiratory: asthma Gastrointestinal: ISCHEMIC COLITIS Hepatic: NONE Renal: NONE Musculoskeletal: NONE Psychiatric: NONE Endocrine: NONE History of MRSA: No History of VRE: No History of CDIFF: No Influenza Vaccine: 06/25/16 Surgical History Surgical History: spinal fusion (CERVICAL), hysterectomy, bilateral salpingo- oophorectomy CARPAL TUNNEL RELEASE Past Family/Social History Family History Relations & Conditions if any Relation not specified for: FHx: cancer Psychosocial History Where do you live? Home Who Do You Live With? spouse Services at Home: None Smoking Status: Former Smoker ETOH Use: occasional use Functional Ability ADLs Independent: dressing, eating, toileting, bathing. Ambulation: independent IADLs Independent: shopping, housework, finances, food prep, telephone, transportation , medication admin. Employment History Employment Employed Profession/Employer director of academic Review of Systems Review of Systems Constitutional: Reports: chills. Denies: fever, malaise, weakness. Cardiovascular: Denies: chest pain, palpitations, peripheral edema. Respiratory: Denies: cough, short of breath, sputum production. GI: Reports: abdominal pain, nausea. Denies: bloating, constipation, diarrhea, distention, melena, bloody stool, vomiting. Genitourinary: Reports: no symptoms. Musculoskeletal: Reports: no symptoms. Skin: Reports: no symptoms. Neurological/Psychological: Reports: no symptoms. Hematologic/Endocrine: Reports: no symptoms. Immunologic/Allergic: Reports: no symptoms. All Other Systems: Reviewed and Negative Exam & Diagnostic Data Last 24 Hrs of Vital Signs/I&O Vital Signs Date Time Temp Pulse Resp B/P Pulse O2 O2 Flow FiO2 Ox Delivery Rate 10/09 0759 99.1 73 20 110/60 94 Room Air 10/09 0509 98.6 85 18 90/50 95 Room Air 10/09 0136 98.4 89 22 118/77 97 Intake & Output 10/09 1600 10/09 0800 10/09 0000 Intake Total 1000 Output Total Balance 1000 Intake, IV 1000 Patient 116 lb Weight Physical Exam General Appearance Alert, Oriented X3, Cooperative, Moderate Distress Skin No Rashes, No Breakdown HEENT Atraumatic, PERRLA, EOMI, mucous membranes dry Neck Supple, No JVD Cardiovascular Regular Rate, Normal S1, Normal S2, No Murmurs Lungs Clear to Auscultation, Normal Air Movement Abdomen Normal Bowel Sounds, Soft, LLQ, suprapubic tenderness Neurological Normal Speech Extremities No Clubbing, Normal Pulses Diagnostic Data EKG Results NSR 78, QTc 433 Other Results There is acute diverticulitis of the sigmoid colon. No evidence of perforation. No free intraperineal air or fluid. Otherwise stable examination when compared to most recent prior CT scan of abdomen and pelvis from 09/22/2016. Thickening at the tip of the gallbladder fundus has remained unchanged over the course of multiple previous examinations consistent with adenomyomatosis. Assessment/Plan Assessment: 61 YO female recently hospitalized for ischemic colitis, returns to the hospital complaining of ongoing left lower quadrant pain, and inability to tolerate oral intake. With ongoing nausea, denies vomiting or diarrhea. Imaging of abdomen and pelvis demonstrated acute diverticulitis of sigmoid colon without evidence of perforation, stable compared to last image 09/22/16. Admit to General Medicine Floor Acute Diverticulitis Keep NPO as unable to tolerate foods at this time Rehydrate with IVF, received bolus in ER, would continue @100ml/hr continue abx to cover GNR and anaerobes pain control with morphine GI consultation Adenomyomatosis Stable remains unchanged since previous examinations Chronic hematuria history of renal stones, not visualized on image no urinary complaints at this time, continue to monitor Full code DVT ppx lovenox Pain pathway As Ranked By This Provider Problem List: 1. Diverticulitis Core Measures/Miscellaneous Acute Coronary Syndrome ACS Diagnosis: No Cerebrovascular Accident CVA/TIA Diagnosis: No Congestive Heart Failure CHF Diagnosis: No Venous Thromboembolism VTE Risk Factors: Age > 40 No [facility] VTE prophylaxis d/t: No contraindications No VTE Pharm Prophylaxis d/t: No contraindications VTE Diagnosis: No VTE Type: NONE VTE Confirmed by (Test): NONE Severe Sepsis Severe Sepsis Present: No Septic Shock Septic Shock Present: No Miscellaneous Documentation Attending Case Discussed With: LIDA ROBBINS M.D Primary Care Physician: YOKO FUNK MD Patient sees these Specialists Gastroenterology Level of Patient Care: General Medicine LIDA ROBBINS MD 10/09/16 2103: Attending MD Review Statement Attending Statement Attending MD Statement: examined this patient, discuss w/resident/PA/SENIOR ESCROW OFFICER, agreed w/resident/PA/SENIOR ESCROW OFFICER, reviewed EMR data (avail), discussed with nursing, discussed with case mgmt, amended to note Attending Assessment/Plan: Patient seen and examined. I reviewed and agree with the resident's documentation of the history and physical as well as assessment and plan. Patient is being admitted about a month after her last hospitalization he complains of abnormal pain. Imaging studies are consistent with acute diverticulitis. The absence of bloody stool species the differential of ischemic colitis this time around. She'll be managed conservatively with bowel rest, intravenous fluids and antibiotic therapy with close monitoring of her leukocytosis for improvement or any worsening symptoms or change in physical examination that may signal complications such as bowel perforation
[2016-10-09 14:01] VITALS: BP 116/84
--- NOTE | 2016-10-09 14:29 | Cons- Gastroenterology ---
General Information and HPI Consulting Request Date of Consult: 10/09/16 Requested By: LIDA ROBBINS M.D Reason for Consult: Diverticulitis, abdominal pain. Abnormal ct scan. Source of Information: patient, old records Exam Limitations: no limitations History of Present Illness: Ms. Roberts is a 61-year-old female with multiple medical problems including a recent hospitalization for ischemic colitis at the end of last August who Niels to [facility] yesterday with complaints of worsening abdominal pain. She was admitted at the end of August with a clinical picture consistent with ischemic colitis, however a flexible sigmoidoscopy attempted at that time was unsuccessful and therefore biopsies were not able to be obtained at that time to confirm the diagnosis. Her bleeding at that time stopped and she was able to be discharged home, but she has had persistent abdominal discomfort ever since. She underwent a repeat colonoscopy on October 02 which showed significant diverticular disease, but the mucosa was otherwise normal in appearance. Biopsies did show changes of chronic colitis and it was therefore requested that they be reviewed at [place] and those results are still pending. She had been on prolonged oral antibiotics and just finished a course of Augmentin on September 29 which she notes seem to help. She has been having bowel movements without any significant diarrhea or constipation although she notes that she does not move her bowels every day. Yesterday while up in [place] she developed severe left lower quadrant abdominal pain for which she decided to drive back down to [facility] to be evaluated as she did not want to get stuck in [place]. The pain was not associated with any vomiting or any high fevers. On presentation to the emergency room she was afebrile hemodynamically stable, and what she was found to have diverticulitis without a fluid collection or free air on a CAT scan. She was admitted to the medical service kept nothing by mouth and was started on IV antibiotics and has had some minimal improvement in her symptoms this morning and she is requesting to eat. Allergies/Medications Allergies: Coded Allergies: ciprofloxacin (From CIPRO) (HIVES 10/09/16) tramadol (UNKNOWN 10/28/15) Home Med List: Amoxicillin/Potassium Clav (Augmentin 875-125 Tablet) 875 MG-125 MG TABLET 1 TAB PO BID DIVERTICULITIS Eletriptan HBr (Relpax) 40 MG TABLET 1 TAB PO DAILY MIGRAINES (Reported) Gabapentin Enacarbil (Horizant) 600 MG TABLET.ER 1 TAB PO BID NERVE PAIN ( Reported) Lisdexamfetamine Dimesylate (Vyvanse) 60 MG CAPSULE 1 CAP PO QAM NERVES ( Reported) Metaxalone (Skelaxin) 800 MG TABLET 1 TAB PO TID MUSCLE SPASM (Reported) Mometasone Furoate (Nasonex) 50 MCG SPRAY.PUMP 1 SPRAY NASB DAILY allergies ( Reported) Montelukast Sodium 10 MG TABLET 1 TAB PO DAILY ALLERGIES (Reported) Paroxetine Mesylate (Brisdelle) 7.5 MG CAPSULE 1 TAB PO DAILY DEPRESSION ( Reported) Current Medications: Current Medications Sig/Sun Start time Last Medication Dose Route Stop Time Status Admin Acetaminophen 650 MG Q6P PRN 10/09 0800 AC PO Acetaminophen 1,000 MG Q6P PRN 10/09 0800 AC 10/09 IV 0945 Ceftriaxone Sodium 1,000 MG DAILY 10/10 1000 AC IV Ceftriaxone Sodium 0 .STK-MED ONE 10/09 0517 DC .ROUTE Ceftriaxone Sodium 1,000 MG ONCE ONE 10/09 0445 DC 10/09 IV 10/09 0446 0519 Eletriptan 40 MG DAILY NEEDED PRN 10/09 1145 AC PO Enoxaparin Sodium 40 MG DAILY 10/09 1000 AC 10/09 SC 0948 Fluticasone 2 SPRAY DAILY 10/10 1000 AC Propionate JOSÉ MANUEL Gabapentin 600 MG BID 10/09 1000 AC PO Lidocaine 1 KAMILAH BID PRN 10/09 1145 AC 10/09 TOP 1314 Metaxalone 800 MG TID 10/09 1000 AC 10/09 PO 1316 Metronidazole 500 MG IQ8 10/09 1600 AC N/A 1 UNIT IV Metronidazole 500 MG ONCE ONE 10/09 0445 DC 10/09 N/A 1 UNIT IV 10/09 0544 0555 Montelukast Sodium 10 MG DAILY 10/09 1000 AC 10/09 PO 1316 Morphine Sulfate 2 MG Q4-6 PRN PRN 10/09 1430 AC IV Morphine Sulfate 2 MG ONCE ONE 10/09 1115 DC 10/09 IV 10/09 1116 1125 Morphine Sulfate 2 MG Q6PRN PRN 10/09 0800 DC 10/09 IV 0825 Morphine Sulfate 0 .STK-MED ONE 10/09 0247 DC .ROUTE Morphine Sulfate 6 MG ONCE ONE 10/09 0230 DC 10/09 IV 10/09 0231 0247 Ondansetron HCl 0 .STK-MED ONE 10/09 0246 DC .ROUTE Ondansetron HCl 4 MG ONCE ONE 10/09 0230 DC 10/09 IV 10/09 0231 0247 Patient Medication 1 ED .STK-MED ONE 10/09 1352 DC Teaching ED 10/09 1353 Sodium Chloride 1,000 ML .Q10H 10/09 0800 AC 10/09 IV 0825 Sodium Chloride 1,000 ML BOLUS ONE 10/09 0230 DC 10/09 IV 10/09 0329 0247 Past History Travel History Traveled to [place] past 21 day No Medical History Blood Transfusion Hx: No Neurological: NONE EENT: NONE Cardiovascular: NONE Respiratory: asthma Gastrointestinal: ISCHEMIC COLITIS Hepatic: NONE Renal: NONE Musculoskeletal: NONE Psychiatric: NONE Endocrine: NONE Blood Disorders: NONE Cancer(s): NONE DOCUMENTATION DESIGNER/Reproductive: NONE Surgical History Surgical History: spinal fusion (CERVICAL), hysterectomy, bilateral salpingo- oophorectomy CARPAL TUNNEL RELEASE Family History Relations & Conditions If Any: Relation not specified for: FHx: cancer Psychosocial History Where Do You Live? Home Who Do You Live With? spouse Services at Home: None Smoking Status: Former Smoker ETOH Use: occasional use Functional Ability ADLs Independent: dressing, eating, toileting, bathing. Ambulation: independent IADLs Independent: shopping, housework, finances, food prep, telephone, transportation , medication admin. Employment History Employment: Employed Profession/Employer: distribution center administrator Review of Systems Review of Systems Constitutional: Reports: malaise, weakness. Denies: diaphoresis, fever. EENTM: Denies: no symptoms. Cardiovascular: Denies: no symptoms. Respiratory: Denies: no symptoms. GI: Reports: see HPI. Genitourinary: Denies: no symptoms. Musculoskeletal: Denies: no symptoms. Skin: Denies: no symptoms. Neurological/Psychological: Denies: no symptoms. Hematologic/Endocrine: Denies: no symptoms. Immunologic/Allergic: Denies: no symptoms. All Other Systems: Reviewed and Negative Exam & Diagnostic Data Vital Signs and I&O Vital Signs Date Time Temp Pulse Resp B/P Pulse O2 O2 Flow FiO2 Ox Delivery Rate 10/09 1401 97.7 68 20 116/84 93 Room Air 10/09 0759 99.1 73 20 110/60 94 Room Air 10/09 0509 98.6 85 18 90/50 95 Room Air 10/09 0136 98.4 89 22 118/77 97 Intake & Output 10/09 0400 10/08 04010/07 0400 Intake Total 1000 Output Total Balance 1000 Intake, IV 1000 Patient 116 lb 116 lb Weight Physical Exam General Appearance: well developed/nourished, no apparent distress Head: atraumatic, normal appearance Eyes: Bilateral: normal appearance. Ears, Nose, Throat: normal pharynx, normal ENT inspection Neck: normal inspection, supple, full range of motion Respiratory: normal breath sounds, chest non-tender, no respiratory distress Cardiovascular: regular rate/rhythm Gastrointestinal: normal bowel sounds, soft, tenderness Rectal: deferred Back: normal inspection, normal range of motion Extremities: normal inspection, normal capillary refill, normal range of motion Skin: intact, normal color Results Pertinent Lab Results: Laboratory Tests 10/09 10/09 0440 0341 Chemistry Lactic Acid (0.7 - 2.1 mmol/L) < 0.5 L Urines Urinalysis LIGHT H Urine Color (YEL,AMB,STR) STRAW Urine Clarity (CLEAR) CLEAR Urine pH (5.0 - 8.0) 6.5 Ur Specific Strawn (1.001 - 1.035) <= 1.005 Urine Protein (NEG,<30 MG/DL) NEG Urine Ketones (NEG) NEG Urine Nitrite (NEG) NEG Urine Bilirubin (NEG) NEG Urine Urobilinogen (0.1 - 1.0 EU/dl) 0.2 Ur Leukocyte Esterase (NEG) NEG Ur Microscopic SEDIMENT EXAMINED Urine RBC (0 - 5 /HPF) 1-3 Urine WBC (0 - 2 /HPF) 1-3 H Ur Epithelial Cells (NONE,FEW) FEW Urine Hemoglobin (NEG) SMALL H Urine Glucose (N MG/DL) NEG 10/09 0151 Chemistry Sodium (137 - 145 mmol/L) 139 Potassium (3.5 - 5.1 mmol/L) 3.8 Chloride (98 - 107 mmol/L) 103 Carbon Dioxide (22 - 30 mmol/L) 26 Anion Gap (5 - 16) 10 BUN (7 - 17 mg/dL) 10 Creatinine (0.5 - 1.0 mg/dL) 0.7 Estimated GFR (>60 ml/min) > 60 BUN/Creatinine Ratio (7 - 25 %) 14.3 Glucose (65 - 99 mg/dL) 117 H Lactic Acid (0.7 - 2.1 mmol/L) 0.8 Calcium (8.4 - 10.2 mg/dL) 10.0 Total Bilirubin (0.2 - 1.3 mg/dL) 0.6 AST (14 - 36 U/L) 15 ALT (9 - 52 U/L) 28 Alkaline Phosphatase (<127 U/L) 50 Total Protein (6.3 - 8.2 g/dL) 6.3 Albumin (3.5 - 5.0 g/dL) 3.7 Globulin (1.9 - 4.2 gm/dL) 2.6 Albumin/Globulin Ratio (1.1 - 2.2 %) 1.4 Amylase (30 - 110 U/L) 45 Lipase (23 - 300 U/L) 43 Hematology CBC w Diff MAN DIFF ORDERED WBC (4.8 - 10.8 /CUMM) 16.5 H RBC (4.20 - 5.40 /CUMM) 3.85 L Hgb (12.0 - 16.0 G/DL) 11.6 L Hct (37 - 47 %) 34.5 L MCV (81.0 - 99.0 FL) 89.8 MCH (27.0 - 31.0 PG) 30.1 RDW (11.5 - 14.5 %) 14.6 H Plt Count (130 - 400 /CUMM) 249 MPV (7.4 - 10.4 FL) 7.6 Gran % (42.2 - 75.2 %) 89.8 H Lymphocytes % (20.5 - 51.1 %) 4.1 L Monocytes % (1.7 - 9.3 %) 5.6 Eosinophils % (0 - 5 %) 0.2 Basophils % (0.0 - 2.0 %) 0.3 Absolute Granulocytes (1.4 - 6.5 /CUMM) 14.8 H Segmented Neutrophils (42.2 - 75.2 %) 84 H Band Neutrophils (0.0 - 5.0 %) 2 Absolute Lymphocytes (1.2 - 3.4 /CUMM) 0.7 L Lymphocytes (20.5 - 51.1 %) 6 L Monocytes (1.7 - 9.3 %) 8 Absolute Monocytes (0.10 - 0.60 /CUMM) 0.9 H Absolute Eosinophils (0.0 - 0.7 /CUMM) 0 Absolute Basophils (0.0 - 0.2 /CUMM) 0.1 Platelet Estimate (ADEQUATE) ADEQUATE Polychromasia 1+ Ovalocytes FEW Stomatocytes FEW PUBS MCHC (33.0 - 37.0 G/DL) 33.5 Other Body Source Fld Total RBCs Counted (%) 100 Imaging/Other Studies: EXAM TYPE: CAT - CT ABD & PELVIS W IV CONTRAST EXAMINATION: CT ABDOMEN AND PELVIS WITH CONTRAST CLINICAL INFORMATION: Ischemic colitis. COMPARISON: CT scan of abdomen and pelvis 09/22/2016. TECHNIQUE: Multidetector volumetric imaging was performed of the abdomen and pelvis before and after the IV administration of 90 mL of Optiray 320 intravenous contrast. Sagittal and coronal reformatted images were obtained on the technologist's workstation. DLP: 258.19 mGy-cm FINDINGS: LUNG BASES: There is minimal bibasilar subsegmental atelectasis. No pleural or pericardial effusion. LIVER, GALLBLADDER, AND BILIARY TREE: There are a few small well marginated benign-appearing cystic lesions within the liver that remain unchanged from prior imaging. There attenuation is otherwise homogeneous. There is no discrete solid liver mass. Focal thickening at the tip of the gallbladder fundus is redemonstrated. The gallbladder is otherwise normal. No abnormal intrahepatic or extrahepatic biliary ductal dilatation. PANCREAS: Unremarkable. SPLEEN: Unremarkable. ADRENAL GLANDS: Unremarkable. KIDNEYS AND URETERS: The kidneys demonstrate symmetric nephrographic enhancement. There is no hydroureteronephrosis. No abnormal perinephric inflammation or collection. There is no nephrolithiasis and no abnormal mass or calcification along the expected course of the right or left ureter. BLADDER: Unremarkable. GASTROINTESTINAL TRACT: There are numerous diverticula primarily involving the descending colon and sigmoid colon. There is inflammatory stranding associated with a short segment of the sigmoid colon best illustrated on coronal image 46 of 79 series 602 and axial image 69 of 89 series 2. These findings are consistent with acute diverticulitis. There is no drainable fluid collection. No free intraperitoneal air or fluid. The stomach and small bowel are unremarkable. The appendix is normal. ABDOMINAL WALL: The abdominal wall is intact. LYMPH NODES: There are no pathologically enlarged mesenteric or retroperitoneal lymph nodes. VASCULAR: A few scattered atheromatous calcification is visualized within the abdominal aorta. The inferior vena cava is unremarkable. PELVIC VISCERA: There chronic changes of a hysterectomy. No worrisome adnexal mass. OSSEOUS STRUCTURES: There is no lytic or blastic osseous lesion. No evidence of acute fracture. 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 IMPRESSION: There is acute diverticulitis of the sigmoid colon. No evidence of perforation. No free intraperineal air or fluid. Otherwise stable examination when compared to most recent prior CT scan of abdomen and pelvis from 09/22/2016. Thickening at the tip of the gallbladder fundus has remained unchanged over the course of multiple previous examinations consistent with adenomyomatosis. Assessment/Plan Assessment/Recommendations: Assessment: Ms. Canelo Magana is a 61-year-old female with a recent hospitalization for ischemic colitis based on clinical grounds as a flexible sigmoidoscopy at that time was not able to be successfully completed who was admitted yesterday with radiographic evidence of diverticulitis which has developed about 1 week after her having a colonoscopy. She is not currently having rectal bleeding to suggest recurrent ischemic colitis and her recent colonoscopy was grossly normal with makes inflammatory bowel disease less likely , but it should be noted that her biopsies were read as chronic colitis. She is currently somewhat improved with IV antibiotics and I am hopeful that her symptoms will continue to improve with supportive care and continue IV antibiotics. Recommendations: 1. Advance to a low residue diet as tolerated. 2. Continue IV antibiotics for now. 3. Administer analgesia as needed with narcotics if necessary. 4. Perform serial abdominal exams. 5. Her colonoscopic biopsies which showed chronic colitis and are currently being reviewed at [place] should be followed up as an outpatient. I will continue to follow this patient and make further recommendations based on her clinical course. Problem List: 1. Diverticulitis 2. Ischemic colitis Copies To: YOKO FUNK MD Consult Acknowledgment - Thank you for your consult request.
--- NOTE | 2016-10-09 21:03 | Admission Certification ---
Admission Certification Certification Statement - As attending physician, I certify that at the time of - admission, based on clinical presentation, severity of - symptoms, need for further diagnostic testing and - therapeutic interventions, and risk of adverse outcomes - without in-hospital treatment, in my clinical assessment, - this patient requires an acute hospital stay for a minimum - of two nights or longer. I have also considered psychsocial - factors such as support system, advanced age, financial - issues, cognitive issues, and failed out-patient treatments, - past re-admission history, safety of patient, and lack of - compliance as applicable. Specific rationale supporting this admission is: Admit to the inpatient medical service for further management of her diverticulitis. She will require IV fluids and intravenous antibiotics.
[2016-10-09 22:49] VITALS: BP 102/60
[2016-10-10 06:16] VITALS: BP 104/72
--- NOTE | 2016-10-10 06:55 | PN- Housestaff ---
JUDIT MCGHEE 10/10/16 0655: Subjective Follow-up For: Acute diverticulitis Subjective: Seen in seen and examined patient. States that she is improved continues to have mild nausea but feels that this is secondary her antibiotics. Her abdominal pain has improved and she would like to start advancing her diet. Denies abdominal pain, diarrhea, vomiting, fever, chills. Review of Systems Constitutional: Denies: chills, diaphoresis, fever, malaise, weakness, unexplained weight loss. Cardiovascular: Denies: chest pain, edema, orthopena, palpitations, peripheral edema, syncope. Respiratory: Denies: cough, hemoptysis, orthopnea, short of breath, sputum production, stridor, wheezing. Objective Last 24 Hrs of Vital Signs/I&O Vital Signs Date Time Temp Pulse Resp B/P Pulse O2 O2 Flow FiO2 Ox Delivery Rate 10/10 0616 97.6 69 20 104/72 97 Room Air 10/09 2249 97.9 62 20 102/60 95 Room Air 10/09 1401 97.7 68 20 116/84 93 Room Air Intake & Output 10/10 1600 10/10 0800 10/10 0000 Intake Total 700 960 Output Total Balance 700 960 Intake, IV 700 900 Intake, Oral 60 Patient 116 lb Weight Physical Exam General Appearance: Alert, Oriented X3, Cooperative, No Acute Distress Cardiovascular: Regular Rate, Normal S1, Normal S2 Lungs: Clear to Auscultation, Normal Air Movement Abdomen: Normal Bowel Sounds, Soft, mild tenderness to palpation right lower quadrant Extremities: No Edema Current Medications: Current Medications Sig/Sun Start time Last Medication Dose Route Stop Time Status Admin Acetaminophen 650 MG Q6P PRN 10/09 0800 AC PO Acetaminophen 1,000 MG Q6P PRN 10/09 0800 AC 10/09 IV 2039 Ceftriaxone Sodium 1,000 MG DAILY 10/10 1000 AC IV Eletriptan 40 MG DAILY NEEDED PRN 10/09 1145 AC 10/09 PO 1800 Enoxaparin Sodium 40 MG DAILY 10/09 1000 AC 10/09 SC 0948 Fluticasone 2 SPRAY DAILY 10/10 1000 DC Propionate JOSÉ MANUEL Fluticasone 2 SPRAY BID 10/09 2230 AC 10/09 Propionate JOSÉ MANUEL 2228 Gabapentin 600 MG BID 10/09 1000 AC PO Lidocaine 1 KAMILAH BID PRN 10/09 1145 AC 10/09 TOP 1314 Metaxalone 800 MG TID 10/09 1000 AC 10/09 PO 1316 Metoclopramide HCl 10 MG Q6P PRN 10/10 0015 AC 10/10 IV 0648 Metronidazole 500 MG IQ8 10/09 1600 AC 10/10 N/A 1 UNIT IV 0812 Montelukast Sodium 10 MG DAILY 10/09 1000 AC 10/09 PO 1316 Morphine Sulfate 2 MG Q4-6 PRN PRN 10/09 1430 AC 10/09 IV 1554 Morphine Sulfate 2 MG ONCE ONE 10/09 1115 DC 10/09 IV 10/09 1116 1125 Morphine Sulfate 2 MG Q6PRN PRN 10/09 0800 DC 10/09 IV 0825 Ondansetron HCl 4 MG Q6P PRN 10/09 2230 AC 10/09 IV 2229 Ondansetron HCl 4 MG ONCE ONE 10/09 1630 DC 10/09 IV 10/09 1631 1623 Patient Medication 1 ED .STK-MED ONE 10/09 1352 DC Teaching ED 10/09 1353 Sodium Chloride 2 SPRAY Q4P PRN 10/09 2015 AC JOSÉ MANUEL Sodium Chloride 1,000 ML .Q10H 10/09 0800 10/10 IV 0431 Last 24 Hrs of Lab/Adonis Results Last 24 Hrs of Labs/Mics: Laboratory Tests 10/10/16 0720: CBC w Diff Pending, WBC Pending, RBC Pending, Hgb Pending, Hct Pending, MCV Pending, MCH Pending, RDW Pending, Plt Count Pending, MPV Pending, PUBS MCHC Pending Assessment/Plan Assessment: 60-year-old woman with past medical history of asthma, seasonal allergies, total abdominal hysterectomy, bilateral salpingo-oophorectomy at age 33 recently discontinued hormone replacement after hospitalization August 2016 for ischemic colitis. On CT abdomen found to have acute diverticulitis of the sigmoid colon. Current admission for acute diverticulitis. Feeling clinically better will start advancing her diet today Problem list Acute diverticulitis Plan; GI on board appreciated recommendations Underwent a repeat colonoscopy on October 02 which showed significant diverticular disease, biopsies showed changes of chronic colitis and were sent to be reviewed at [place], results still pending. Continue IV ceftriaxone and Flagyl Will advance her diet today as tolerated Full code DVT ppx lovenox Pain pathway Problem List: 1. Diverticulitis Pain Ratin Pain Location: Lower abdomen Pain Goal: Pain 4 or less Pain Plan: Current regimen Tomorrow's Labs & Rationales: cbc/bep ROSENDO PETELIDA 10/10/16 1039: Attending MD Review Statement Attending Statement Attending MD Statement: examined this patient, discuss w/resident/PA/OIL RECOVERY OPERATOR, agreed w/resident/PA/OIL RECOVERY OPERATOR, discussed with family, reviewed EMR data (avail), discussed with nursing, discussed with case mgmt, amended to note Attending Assessment/Plan: Patient seen and examined. Resting comfortably in bed not in acute distress. present at bedside. No issues overnight reported by nursing staff. She reports feeling better today. She does admit to abdominal cramps on and off in the left lower quadrant. Denies nausea vomiting. She was started on a full liquid diet this morning which she tolerated she is afebrile and hemodynamically stable. Her WBC is trending downwards. Etiology of her recurrent colitis is unclear. Her initial admission last month was suggestive of ischemic colitis based on clinical basis. Colonoscopy done as an outpatient following discharge was read as chronic colitis. Patient does admit to history of left lower quadrant abdominal pain on and off for several months. Biopsies have been sent to [facility] for further review. Recommendations: -Continue full liquid diet as tolerated. -Continue IV antibiotic therapy. -Repeat CBC in 48 hours unless there is a change in her clinical condition. -Continue current pain regimen as needed.
[2016-10-10 08:27] LABS: ABSOLUTE BASOPHIL COUNT 0 /CUMM (0.0-0.2); ABSOLUTE EOSINOPHIL COUNT 0.1 /CUMM (0.0-0.7); ABSOLUTE GRANULOCYTE CT 11.9 /CUMM (1.4-6.5); ABSOLUTE MONOCYTE COUNT 1.3 /CUMM (0.10-0.60); BASOPHIL % 0 % (0.0-2.0); EOSINOPHIL % 0.4 % (0-5); HEMATOCRIT 34.5 % (37-47); MEAN CORPUSCULAR HGB CONC 32.8 G/DL (33.0-37.0); MEAN CORPUSCULAR VOLUME 91.3 FL (81.0-99.0); MEAN PLATELET VOLUME 7.9 FL (7.4-10.4); PLATELET COUNT 237 /CUMM (130-400); RBC DISTRIBUTION WIDTH 14.4 % (11.5-14.5); RED BLOOD CELL CT 3.78 /CUMM (4.20-5.40); WHITE BLOOD CELL COUNT 14.3 /CUMM (4.8-10.8)
[2016-10-10 10:23] LABS: GRANULOCYTE % 83.2 % (42.2-75.2)
[2016-10-10 14:09] VITALS: BP 130/70
--- NOTE | 2016-10-10 17:09 | PN- General Surgery ---
Surgical Brief Attending Note Brief Attending Note: Courtesy note. I have been managing this patients colitis symptoms in concert with Dr. James as both an inpatient and outpatient. She has chronic, relapsing colitis of indeterminant etiology. Although the initial thought was that of ischemic colitis, she does not have any risk factors for it. Furthermore , the distribution of colitis on initial CT in August was not in keeping with ischemia (two vascular distributions). Although the CT report from yesterday suggested diverticulitis, clinically her disease is not behaving as such. Now she has recurrent colitis responsive to bowel rest and antibiotics for the third time in two months. My suspicion is that she has inflammatory colitis as to the etiology.
--- NOTE | 2016-10-10 17:36 | PN- Gastroenterology ---
Assessment/Plan Assessment/Recommendations: Acute diverticulitis, with recent (probable) ischemic colitis (although the official interpretation of biopsies not definitive). Improvement on antibiotics. Recommendations * current diet, although if pain persists, consider regression to clear liquid diet * Continue IV antibiotics * Await pathology results from colonoscopy, which have presumably been sent to [facility] (would verify) Subjective Subjective: Left lower quadrant pain more focal, and somewhat improved although still present. Worse with walking, coughing, and perhaps after eating. No fever, chills or sweats. No nausea or vomiting. No diarrhea, or blood per rectum Objective Vital Signs and I&Os Vital Signs Date Time Temp Pulse Resp B/P Pulse O2 O2 Flow FiO2 Ox Delivery Rate 10/10 1409 98.4 80 20 130/70 96 Room Air 10/10 0616 97.6 69 20 104/72 97 Room Air 10/09 2249 97.9 62 20 102/60 95 Room Air Intake & Output 10/10 1600 10/10 0400 10/09 1600 10/09 0400 10/08 1600 10/08 0400 Intake Total 7454 550 4503 Output Total Balance 7453 001 9664 Intake, IV 9651 663 7416 Intake, Oral 480 60 0 Number 0 Bowel Movements Patient 116 lb 116 lb 116 lb Weight Physical Exam: Appears comfortable. Sclera anicteric. No adenopathy. No skin lesion. Abdomen soft and nondistended, with hyperactive bowel sounds; left lower quadrant tenderness to mild/moderate palpation, without mass/fullness. Current Medications: Current Medications Sig/Sun Start time Last Medication Dose Route Stop Time Status Admin Acetaminophen 650 MG Q6P PRN 10/09 0800 AC PO Acetaminophen 1,000 MG Q6P PRN 10/09 0800 AC 10/09 IV 2039 Ceftriaxone Sodium 1,000 MG DAILY 10/10 1000 AC 10/10 IV 0940 Eletriptan 40 MG DAILY NEEDED PRN 10/09 1145 AC 10/09 PO 1800 Enoxaparin Sodium 40 MG DAILY 10/09 1000 AC 10/10 SC 0937 Fluticasone 2 SPRAY DAILY 10/10 1000 DC Propionate JOSÉ MANUEL Fluticasone 2 SPRAY BID 10/09 2230 AC 10/10 Propionate JOSÉ MANUEL 0937 Gabapentin 600 MG BID 10/09 1000 AC PO Lidocaine 1 KAMILAH BID PRN 10/09 1145 AC 10/09 TOP 1314 Metaxalone 800 MG TID 10/09 1000 AC 10/10 PO 0935 Metoclopramide HCl 10 MG Q6P PRN 10/10 0015 AC 10/10 IV 0648 Metronidazole 500 MG IQ8 10/09 1600 AC 10/10 N/A 1 UNIT IV 1713 Montelukast Sodium 10 MG DAILY 10/09 1000 AC 10/10 PO 0935 Morphine Sulfate 2 MG Q4-6 PRN PRN 10/09 1430 AC 10/09 IV 1554 Ondansetron HCl 4 MG Q6P PRN 10/09 2230 AC 10/09 IV 2229 Sodium Chloride 2 SPRAY Q4P PRN 10/09 2015 AC JOSÉ MANUEL Sodium Chloride 1,000 ML .Q10H 10/09 0800 AC 10/10 IV 1713 Results Pertinent Lab Results: Laboratory Tests 10/10 10/09 0720 0440 Chemistry Lactic Acid (0.7 - 2.1 mmol/L) < 0.5 L Hematology CBC w Diff NO MAN DIFF REQ WBC (4.8 - 10.8 /CUMM) 14.3 H RBC (4.20 - 5.40 /CUMM) 3.78 L Hgb (12.0 - 16.0 G/DL) 11.3 L Hct (37 - 47 %) 34.5 L MCV (81.0 - 99.0 FL) 91.3 MCH (27.0 - 31.0 PG) 30.0 RDW (11.5 - 14.5 %) 14.4 Plt Count (130 - 400 /CUMM) 237 MPV (7.4 - 10.4 FL) 7.9 Gran % (42.2 - 75.2 %) 83.2 H Lymphocytes % (20.5 - 51.1 %) 7.0 L Monocytes % (1.7 - 9.3 %) 9.4 H Eosinophils % (0 - 5 %) 0.4 Basophils % (0.0 - 2.0 %) 0 L Absolute Granulocytes (1.4 - 6.5 /CUMM) 11.9 H Absolute Lymphocytes (1.2 - 3.4 /CUMM) 1.0 L Absolute Monocytes (0.10 - 0.60 /CUMM) 1.3 H Absolute Eosinophils (0.0 - 0.7 /CUMM) 0.1 Absolute Basophils (0.0 - 0.2 /CUMM) 0 PUBS MCHC (33.0 - 37.0 G/DL) 32.8 L 10/09 10/09 0341 0151 Chemistry Sodium (137 - 145 mmol/L) 139 Potassium (3.5 - 5.1 mmol/L) 3.8 Chloride (98 - 107 mmol/L) 103 Carbon Dioxide (22 - 30 mmol/L) 26 Anion Gap (5 - 16) 10 BUN (7 - 17 mg/dL) 10 Creatinine (0.5 - 1.0 mg/dL) 0.7 Estimated GFR (>60 ml/min) > 60 BUN/Creatinine Ratio (7 - 25 %) 14.3 Glucose (65 - 99 mg/dL) 117 H Lactic Acid (0.7 - 2.1 mmol/L) 0.8 Calcium (8.4 - 10.2 mg/dL) 10.0 Total Bilirubin (0.2 - 1.3 mg/dL) 0.6 AST (14 - 36 U/L) 15 ALT (9 - 52 U/L) 28 Alkaline Phosphatase (<127 U/L) 50 Total Protein (6.3 - 8.2 g/dL) 6.3 Albumin (3.5 - 5.0 g/dL) 3.7 Globulin (1.9 - 4.2 gm/dL) 2.6 Albumin/Globulin Ratio (1.1 - 2.2 %) 1.4 Amylase (30 - 110 U/L) 45 Lipase (23 - 300 U/L) 43 Hematology CBC w Diff MAN DIFF ORDERED WBC (4.8 - 10.8 /CUMM) 16.5 H RBC (4.20 - 5.40 /CUMM) 3.85 L Hgb (12.0 - 16.0 G/DL) 11.6 L Hct (37 - 47 %) 34.5 L MCV (81.0 - 99.0 FL) 89.8 MCH (27.0 - 31.0 PG) 30.1 RDW (11.5 - 14.5 %) 14.6 H Plt Count (130 - 400 /CUMM) 249 MPV (7.4 - 10.4 FL) 7.6 Gran % (42.2 - 75.2 %) 89.8 H Lymphocytes % (20.5 - 51.1 %) 4.1 L Monocytes % (1.7 - 9.3 %) 5.6 Eosinophils % (0 - 5 %) 0.2 Basophils % (0.0 - 2.0 %) 0.3 Absolute Granulocytes (1.4 - 6.5 /CUMM) 14.8 H Segmented Neutrophils (42.2 - 75.2 %) 84 H Band Neutrophils (0.0 - 5.0 %) 2 Absolute Lymphocytes (1.2 - 3.4 /CUMM) 0.7 L Lymphocytes (20.5 - 51.1 %) 6 L Monocytes (1.7 - 9.3 %) 8 Absolute Monocytes (0.10 - 0.60 /CUMM) 0.9 H Absolute Eosinophils (0.0 - 0.7 /CUMM) 0 Absolute Basophils (0.0 - 0.2 /CUMM) 0.1 Platelet Estimate (ADEQUATE) ADEQUATE Polychromasia 1+ Ovalocytes FEW Stomatocytes FEW PUBS MCHC (33.0 - 37.0 G/DL) 33.5 Other Body Source Fld Total RBCs Counted (%) 100 Urines Urinalysis LIGHT H Urine Color (YEL,AMB,STR) STRAW Urine Clarity (CLEAR) CLEAR Urine pH (5.0 - 8.0) 6.5 Ur Specific [place] (1.001 - 1.035) <= 1.005 Urine Protein (NEG,<30 MG/DL) NEG Urine Ketones (NEG) NEG Urine Nitrite (NEG) NEG Urine Bilirubin (NEG) NEG Urine Urobilinogen (0.1 - 1.0 EU/dl) 0.2 Ur Leukocyte Esterase (NEG) NEG Ur Microscopic SEDIMENT EXAMINED Urine RBC (0 - 5 /HPF) 1-3 Urine WBC (0 - 2 /HPF) 1-3 H Ur Epithelial Cells (NONE,FEW) FEW Urine Hemoglobin (NEG) SMALL H Urine Glucose (N MG/DL) NEG
[2016-10-10 22:08] VITALS: BP 120/70
[2016-10-11 06:27] VITALS: BP 140/80
--- NOTE | 2016-10-11 08:26 | PN- Housestaff ---
JUDIT MCGHEE 10/11/16 0826: Subjective Follow-up For: Abdominal pain/nausea Subjective: Complains of colicky intermittent abdominal pain and increased nausea from yesterday. Denies fevers, chills, shortness of breath, chest pain. Review of Systems Constitutional: Denies: chills, diaphoresis, fever, malaise, weakness, unexplained weight loss. Cardiovascular: Denies: chest pain, edema, orthopena, palpitations, peripheral edema, syncope. Respiratory: Denies: cough, hemoptysis, orthopnea, short of breath, sputum production, stridor, wheezing. Objective Last 24 Hrs of Vital Signs/I&O Vital Signs Date Time Temp Pulse Resp B/P B/P Pulse O2 O2 Flow FiO2 Mean Ox Delivery Rate 10/11 1425 98.7 76 18 108/50 98 Room Air 10/11 0627 97.9 68 20 140/80 96 Room Air 10/10 2208 98.7 84 20 120/70 96 Intake & Output 10/11 1600 10/11 0800 10/11 0000 Intake Total 1200 720 Output Total Balance 1200 720 Intake, IV 800 600 Intake, Oral 400 120 Number 2 Bowel Movements Physical Exam General Appearance: Alert, Oriented X3, Cooperative, No Acute Distress Cardiovascular: Regular Rate, Normal S1, Normal S2 Lungs: Clear to Auscultation, Normal Air Movement Abdomen: Soft, hyperactive bowel sounds Extremities: No Edema Current Medications: Current Medications Sig/Sun Start time Last Medication Dose Route Stop Time Status Admin Acetaminophen 650 MG Q6P PRN 10/09 0800 AC PO Acetaminophen 1,000 MG Q6P PRN 10/09 0800 AC 10/10 IV 2305 Ceftriaxone Sodium 1,000 MG DAILY 10/10 1000 AC 10/11 IV 0958 Eletriptan 40 MG DAILY NEEDED PRN 10/09 1145 AC 10/09 PO 1800 Enoxaparin Sodium 40 MG DAILY 10/09 1000 AC 10/11 SC 0959 Fluticasone 2 SPRAY BID 10/09 2230 AC 10/11 Propionate JOSÉ MANUEL 1002 Gabapentin 600 MG BID 10/09 1000 DC PO Lidocaine 1 KAMILAH BID PRN 10/09 1145 AC 10/09 TOP 1314 Metaxalone 800 MG TID 10/09 1000 AC 10/10 PO 0935 Metoclopramide HCl 10 MG Q6P PRN 10/10 0015 AC 10/11 IV 0958 Metronidazole 500 MG IQ8 10/09 1600 AC 10/11 N/A 1 UNIT IV 0750 Montelukast Sodium 10 MG DAILY 10/09 1000 AC 10/11 PO 1002 Morphine Sulfate 2 MG Q4-6 PRN PRN 10/09 1430 AC 10/09 IV 1554 Ondansetron HCl 4 MG Q6P PRN 10/09 2230 AC 10/09 IV 2229 Patient Medication 1 ED .STK-MED ONE 10/11 1402 DC Teaching ED 10/11 1403 Sodium Chloride 2 SPRAY Q4P PRN 10/09 2014 AC JOSÉ MANUEL Sodium Chloride 1,000 ML .Q10H 10/09 0800 AC 10/11 IV 0445 Assessment/Plan Assessment: 60-year-old woman with past medical history of asthma, seasonal allergies, total abdominal hysterectomy, bilateral salpingo-oophorectomy at age 33 recently discontinued hormone replacement after hospitalization August [address] colitis. On CT abdomen found to have acute diverticulitis of the sigmoid colon. Problem list Acute diverticulitis versus ischemic colitis versus infective colitis Plan; GI on board appreciated recommendations Continue IV ceftriaxone and Flagyl Current currently not tolerating her full liquid diet will switch her back to clear liquids Full code DVT ppx lovenox Pain pathway Problem List: 1. Diverticulitis Pain Ratin Pain Location: Abdomen Pain Goal: Pain 4 or less Pain Plan: Current regimen Tomorrow's Labs & Rationales: CBC/BEP ROSENDO PETE,LIDA 10/11/16 1357: Attending MD Review Statement Attending Statement Attending MD Statement: examined this patient, discuss w/resident/PA/MASONRY SUPERVISOR, agreed w/resident/PA/MASONRY SUPERVISOR, reviewed EMR data (avail), discussed with nursing, discussed with case mgmt, amended to note Attending Assessment/Plan: Patient seen and examined. Sitting up in bed. She admits to ongoing abdominal cramps on and off. She admits to nausea. Denies any vomiting. Denies any diarrhea. She complains of abdominal tenderness on examination. She fortunately remains afebrile and hemodynamically stable. Recommendations: -Recommend cutting back on her diet to clear liquid diet for the remainder of the day. -Continue IV hydration. -She reports that her pain is controlled with IV Tylenol and is not seeking any more medications. -Repeat CBC and chemistry tomorrow.
[2016-10-11 14:25] VITALS: BP 108/50
[2016-10-11 22:42] VITALS: BP 140/72
[2016-10-12 06:38] VITALS: BP 128/74
--- NOTE | 2016-10-12 07:05 | PN- Housestaff ---
JUDIT MCGHEE 10/12/16 0705: Subjective Follow-up For: abdominal pain nausea Subjective: seen and examined patient. Nausea and abdominal pain has improved and she wishes to advance her diet. Feels like her nausea is most secondary to not eating and the liquid diet is more nauseating for her. Review of Systems Constitutional: Denies: chills, diaphoresis, fever, malaise, weakness, unexplained weight loss. Cardiovascular: Denies: chest pain, edema, orthopena, palpitations, peripheral edema, syncope. Respiratory: Denies: cough, hemoptysis, orthopnea, short of breath, sputum production, stridor, wheezing. Objective Last 24 Hrs of Vital Signs/I&O Vital Signs Date Time Temp Pulse Resp B/P B/P Pulse O2 O2 Flow FiO2 Mean Ox Delivery Rate 10/12 0638 98.1 60 18 128/74 97 Room Air 10/11 2242 98.4 63 20 140/72 97 Room Air 10/11 1425 98.7 76 18 108/50 98 Room Air Intake & Output 10/12 1600 10/12 0800 10/12 0000 Intake Total 1000 1480 Output Total Balance 1000 1480 Intake, IV 800 1000 Intake, Oral 200 480 Number 0 Bowel Movements Physical Exam General Appearance: Alert, Oriented X3, Cooperative, No Acute Distress Cardiovascular: Regular Rate, Normal S1, Normal S2 Lungs: Clear to Auscultation, Normal Air Movement Abdomen: Normal Bowel Sounds, Soft, No Tenderness, mild tenderness in lower abdomen. Current Medications: Current Medications Sig/Sun Start time Last Medication Dose Route Stop Time Status Admin Acetaminophen 650 MG Q6P PRN 10/09 0800 AC PO Acetaminophen 1,000 MG Q6P PRN 10/09 0800 AC 10/10 IV 2305 Calcium Carbonate 500 MG DAILY 10/11 2345 AC 10/12 PO 0012 Ceftriaxone Sodium 1,000 MG DAILY 10/10 1000 AC 10/11 IV 0958 Eletriptan 40 MG DAILY NEEDED PRN 10/09 1145 AC 10/09 PO 1800 Enoxaparin Sodium 40 MG DAILY 10/09 1000 AC 10/11 SC 0959 Fluticasone 2 SPRAY BID 10/09 2230 AC 10/11 Propionate JOSÉ MANUEL 2046 Gabapentin 600 MG BID 10/09 1000 DC PO Lidocaine 1 KAMILAH BID PRN 10/09 1145 AC 10/12 TOP 0328 Metaxalone 800 MG TID 10/09 1000 AC 10/10 PO 0935 Metoclopramide HCl 10 MG .STK-MED ONE 10/11 0958 DC IM 10/11 0959 Metoclopramide HCl 10 MG Q6P PRN 10/10 0015 AC 10/11 IV 0958 Metronidazole 500 MG IQ8 10/09 1600 AC 10/12 N/A 1 UNIT IV 0012 Montelukast Sodium 10 MG DAILY 10/09 1000 AC 10/11 PO 1002 Morphine Sulfate 2 MG Q4-6 PRN PRN 10/09 1430 AC 10/09 IV 1554 Ondansetron HCl 4 MG Q6P PRN 10/09 2230 AC 10/09 IV 2229 Patient Medication 1 ED .STK-MED ONE 10/11 1402 DC Teaching ED 10/11 1403 Sodium Chloride 2 SPRAY Q4P PRN 10/09 2015 AC JOSÉ MANUEL Sodium Chloride 1,000 ML .Q10H 10/09 0800 AC 10/12 IV 0328 Last 24 Hrs of Lab/Adonis Results Last 24 Hrs of Labs/Mics: Laboratory Tests 10/12/16 0711: Sodium Pending, Potassium Pending, Chloride Pending, Carbon Dioxide Pending, Anion Gap Pending, BUN Pending, Creatinine Pending, BUN/Creatinine Ratio Pending , CBC w Diff Pending, WBC Pending, RBC Pending, Hgb Pending, Hct Pending, MCV Pending, MCH Pending, RDW Pending, Plt Count Pending, MPV Pending, PUBS MCHC Pending Assessment/Plan Assessment: 60-year-old woman with past medical history of asthma, seasonal allergies, total abdominal hysterectomy, bilateral salpingo-oophorectomy at age 33 recently discontinued hormone replacement after hospitalization August [address] colitis. On CT abdomen found to have acute diverticulitis of the sigmoid colon. feels better today and would like to advance diet. Problem list Acute diverticulitis versus ischemic colitis versus infective colitis Plan; Will advance her to full liquid diet today. She wishes to try TUMs for her nausea prior to any other medications. Continue IV ceftriaxone and Flagyl, day 4 of antibiotic today Called pathology and confirmed that her biopsy was not sent to [facility]. We are able to still send it, request sent to pathology. GI on board appreciaterecommendations Full code DVT ppx lovenox Pain pathway Problem List: 1. Diverticulitis Pain Ratin Pain Location: lower abdomen Pain Goal: Pain 4 or less Pain Plan: current regimen Tomorrow's Labs & Rationales: clara ROBBINS MD,LIDA 10/12/16 1137: Attending MD Review Statement Attending Statement Attending MD Statement: examined this patient, discuss w/resident/PA/PRINCIPLE SOFTWARE ENGINEER, agreed w/resident/PA/PRINCIPLE SOFTWARE ENGINEER, reviewed EMR data (avail), discussed with nursing, discussed with case mgmt, amended to note Attending Assessment/Plan: Patient seen and examined. She reportedly much better this morning. She tolerated a full liquid diet for breakfast. She would like a diet to be advanced. She denies any nausea vomiting. Denies any abdominal pain. On examination bowel sounds are normoactive, abdomen is soft and nontender. It is nondistended. She remains afebrile and her white cell count is now within normal limits. Recommendations: -Control with the grab jack man service it is okay to advance her diet today mechanical soft diet this afternoon. If she tolerates lunch and dinner she may be discharged home tomorrow. -Apparently her pathology was not sent to [facility] for secondary review. House staff has contacted the lab and made arrangements for specimen to be sent to [facility] for review. Patient will follow-up the results with her grab jack man as an outpatient following discharge. -Supplement potassium level and repeat serum chemistry tomorrow.
[2016-10-12 08:00] LABS: ABSOLUTE BASOPHIL COUNT 0 /CUMM (0.0-0.2); ABSOLUTE EOSINOPHIL COUNT 0.1 /CUMM (0.0-0.7); ABSOLUTE GRANULOCYTE CT 5.1 /CUMM (1.4-6.5); ABSOLUTE LYMPH COUNT 1.2 /CUMM (1.2-3.4); ABSOLUTE MONOCYTE COUNT 0.8 /CUMM (0.10-0.60); BASOPHIL % 0.3 % (0.0-2.0); EOSINOPHIL % 1.4 % (0-5); GRANULOCYTE % 70.4 % (42.2-75.2); HEMATOCRIT 30.4 % (37-47); MEAN CORPUSCULAR HGB 30.1 PG (27.0-31.0); MEAN CORPUSCULAR HGB CONC 33.7 G/DL (33.0-37.0); MEAN CORPUSCULAR VOLUME 89.5 FL (81.0-99.0); MEAN PLATELET VOLUME 7.6 FL (7.4-10.4); PLATELET COUNT 258 /CUMM (130-400); RBC DISTRIBUTION WIDTH 13.6 % (11.5-14.5); WHITE BLOOD CELL COUNT 7.2 /CUMM (4.8-10.8)
[2016-10-12 14:53] VITALS: BP 128/70
[2016-10-12 22:10] VITALS: BP 110/70
[2016-10-13 06:31] VITALS: BP 110/70
--- NOTE | 2016-10-13 07:04 | PN- Housestaff ---
JUDIT MCGHEE 10/13/16 0704: Subjective Follow-up For: abdominal pain nausea Subjective: Seen and examined patient, feel better today. She is tolerating her mechanical soft low residue diet. states she is ambulating well. Yesterday in the afternoon , she reported 4-6 episodes of semi-solid BM. Has not had any today. Review of Systems Constitutional: Denies: chills, diaphoresis, fever, malaise, weakness, unexplained weight loss. Cardiovascular: Denies: chest pain, edema, orthopena, palpitations, peripheral edema, syncope. Respiratory: Denies: cough, hemoptysis, orthopnea, short of breath, sputum production, stridor, wheezing. Gastrointestinal: Denies: abdominal pain, bloating, constipation, diarrhea, distention, bowel incontinence, melena, nausea, bloody stool, changes in stool, vomiting, steatorrhea. Objective Last 24 Hrs of Vital Signs/I&O Vital Signs Date Time Temp Pulse Resp B/P B/P Pulse O2 O2 Flow FiO2 Mean Ox Delivery Rate 10/13 0631 98.0 77 20 110/70 98 Room Air 10/12 2210 98.4 85 18 110/70 97 Intake & Output 10/13 1600 10/13 0800 10/13 0000 Intake Total 1040 1160 Output Total Balance 1040 1160 Intake, IV 800 800 Intake, Oral 240 360 Physical Exam General Appearance: Alert, Oriented X3, Cooperative, No Acute Distress Cardiovascular: Regular Rate, Normal S1, Normal S2 Lungs: Clear to Auscultation, Normal Air Movement Abdomen: Normal Bowel Sounds, Soft, No Tenderness Assessment/Plan Assessment: 60-year-old woman with past medical history of asthma, seasonal allergies, total abdominal hysterectomy, bilateral salpingo-oophorectomy at age 33 recently discontinued hormone replacement after hospitalization August [address] for [address] colitis. On CT abdomen found to have acute diverticulitis of the sigmoid colon. Tolerating her diet and reports clinical improvement of her symptoms Problem list Acute diverticulitis versus ischemic colitis versus infective colitis Plan; Continue IV ceftriaxone and Flagyl, day 4 of antibiotic today, will be discharged on augmentin for a total duration of 14 days of antibiotic, reports severe rash with ciprofloxacin. GI on board appreciate recommendations, will follow up with them as outpatient to follow up result of the biopsy sent to [facility] consult for advice on appropriate diet (low residue diet) which she is to continue till her follow up with GI service. Full code DVT ppx lovenox Pain pathway Problem List: 1. Diverticulitis Pain Ratin Pain Location: na Pain Goal: Pain 4 or less Pain Plan: current regimen Tomorrow's Labs & Rationales: none required ARTUR ROBBINS MDEMILYJesus 10/13/16 1151: Attending MD Review Statement Attending Statement Attending MD Statement: examined this patient, discuss w/resident/PA/HEAD LINEMAN, agreed w/resident/PA/HEAD LINEMAN, reviewed EMR data (avail), discussed with nursing, discussed with case mgmt, amended to note Attending Assessment/Plan: Patient seen and examined. She feels much better today. She is tolerating a soft diet. Denies nausea vomiting. Denies abdominal pain. She did report some abdominal cramps are relieved bowel movements. She reported some frequent stools yesterday but was soft and not watery. Admission abdomen is nondistended , soft, nontender. She remains afebrile hemodynamically stable. Recommendations: -She is medically stable to be discharged home today. -She reports not tolerating ciprofloxacin as an outpatient so she will be discharged on Augmentin to complete 14 days of therapy. -She is to follow-up with the gastroenterology service as an outpatient for results of pathology sent to [facility]. -She is to continue on a soft diet upon discharge and then transitioned to low residue diet. She'll eventually require high residue diet will be following up with the GI service.
--- NOTE | 2016-10-13 07:19 | Patient Discharge Instructions ---
Discharge Instructions General Discharge Information You were seen/treated for: abdominal pain and nausea Special Instructions: Please follow up with pcp within two weeks of discharge please follow up with your gasterenterologist within two weeks of discharge please continue a mechanical low residue diet till advised by your gasterenterologist Diet Recommended Diet: Low Residue Acute Coronary Syndrome Inclusion Criteria At DC or during hospital stay patient has or had the following: ACS DIAGNOSIS No Discharge Core Measures Meds if any: Prescribed or Continued at Discharge LINDY/ARB if EF <40% Yes Meds if any: NOT Prescribed or Continued at Discharge Congestive Heart Failure Inclusion Criteria At DC or during hospital stay patient has or had the following: CHF DIAGNOSIS No Discharge Core Measures Meds if any: Prescribed or Continued at Discharge Meds if any: NOT Prescribed or Continued at Discharge Cerebrovascular accident Inclusion Criteria At DC or during hospital stay patient has or had the following: CVA/TIA Diagnosis No Discharge Core Measures Meds if any: Prescribed or Continued at Discharge Meds if any: NOT Prescribed or Continued at Discharge Venous thromboembolism Inclusion Criteria VTE Diagnosis No VTE Type NONE VTE Confirmed by (Test) NONE Discharge Core Measures - Per Current guidelines, there needs to be overlap - treatment for the first 5 days of Warfarin therapy. - If discharged on Warfarin prior to 5 days of - overlap therapy, the patient will need to be - assessed for post discharge needs including - *Post discharge parental anticoagulation - *Warfarin and/or parental anticoagulation education - *Follow up date to check INR post discharge At least 5 days overlap therapy as Inpatient No Meds if any: Prescribed or Continued at Discharge Note: Overlap Therapy is Warfarin and Anticoagulant Meds if any: NOT Prescribed or Continued at Discharge
--- NOTE | 2016-10-13 08:44 | PN- Gastroenterology ---
Assessment/Plan Assessment/Recommendations: Acute diverticulitis, with significant improvement. Questionable underlying colitis, although the recent episode was more likely due to ischemia. Suspect that the patient has recurrent subclinical diverticular disease with occasional flares. Recommendations * Discharge the patient on a low fiber diet * Cipro 500 mg by mouth twice a day, metronidazole 500 mg by mouth 3 times a day for 7 days * Await pathology results from colonoscopy, which have presumably been sent to [facility] at this point * Outpatient follow-up with me in 2 weeks; if asymptomatic, we will liberalize diet at that time Subjective Subjective: The patient denies constant abdominal pain although there is some crampiness, and soreness. She is tolerating a low fiber diet. She remains afebrile. There is no nausea, or vomiting. Her stools are soft. Objective Vital Signs and I&Os Vital Signs Date Time Temp Pulse Resp B/P B/P Pulse O2 O2 Flow FiO2 Mean Ox Delivery Rate 10/13 0631 98.0 77 20 110/70 98 Room Air 10/12 2210 98.4 85 18 110/70 97 10/12 1453 98.1 69 18 128/70 98 Intake & Output 10/13 1600 10/13 0400 10/12 1600 10/12 0400 10/11 1600 10/11 0400 Intake Total 1040 1160 2900 1480 1920 Output Total Balance 1040 1160 2900 1480 1920 Intake, IV 431 792 9702 1000 1400 Intake, Oral 329 250 7999 480 520 Number 2 2 Bowel Movements Physical Exam: Appears comfortable. Abdomen is soft and nondistended, and nontender. Current Medications: Current Medications Sig/Sun Start time Last Medication Dose Route Stop Time Status Admin Acetaminophen 650 MG Q6P PRN 10/09 0800 AC PO Acetaminophen 1,000 MG Q6P PRN 10/09 0800 AC 10/10 IV 2305 Calcium Carbonate 500 MG DAILY PRN 10/12 0808 AC 10/13 PO 0052 Ceftriaxone Sodium 1,000 MG DAILY 10/10 1000 AC 10/12 IV 1108 Eletriptan 40 MG DAILY NEEDED PRN 10/09 1145 AC 10/09 PO 1800 Enoxaparin Sodium 40 MG DAILY 10/09 1000 AC 10/12 SC 1109 Fluticasone 2 SPRAY BID 10/09 2230 AC 10/12 Propionate JOSÉ MANUEL 2219 Lidocaine 1 KAMILAH BID PRN 10/09 1145 AC 10/12 TOP 0328 Melatonin 5 MG AT BEDTIME PRN 10/12 2100 AC 10/12 PO 2218 Metaxalone 800 MG TID 10/09 1000 AC 10/13 PO 0801 Metoclopramide HCl 10 MG Q6P PRN 10/10 0015 AC 10/11 IV 0958 Metronidazole 500 MG IQ8 10/09 1600 AC 10/13 N/A 1 UNIT IV 0801 Montelukast Sodium 10 MG DAILY 10/09 1000 AC 10/12 PO 1109 Morphine Sulfate 2 MG Q4-6 PRN PRN 10/09 1430 AC 10/09 IV 1554 Ondansetron HCl 4 MG Q6P PRN 10/09 2230 AC 10/09 IV 2229 Potassium Chloride 40 MEQ ONCE ONE 10/12 1345 DC 10/12 PO 10/12 1346 1524 Sodium Chloride 2 SPRAY Q4P PRN 10/09 2015 AC JOSÉ MANUEL Sodium Chloride 1,000 ML .Q10H 10/09 0800 AC 10/13 IV 0243 Results Pertinent Lab Results: Laboratory Tests 10/13 10/12 0627 0711 Chemistry Sodium (137 - 145 mmol/L) 143 141 Potassium (3.5 - 5.1 mmol/L) 3.7 3.3 L Chloride (98 - 107 mmol/L) 110 H 106 Carbon Dioxide (22 - 30 mmol/L) 28 28 Anion Gap (5 - 16) 6 7 BUN (7 - 17 mg/dL) 4 L 4 L Creatinine (0.5 - 1.0 mg/dL) 0.6 0.5 Estimated GFR (>60 ml/min) > 60 > 60 BUN/Creatinine Ratio (7 - 25 %) 6.7 L 8.0 Hematology CBC w Diff NO MAN DIFF REQ WBC (4.8 - 10.8 /CUMM) 7.2 RBC (4.20 - 5.40 /CUMM) 3.40 L Hgb (12.0 - 16.0 G/DL) 10.2 L Hct (37 - 47 %) 30.4 L MCV (81.0 - 99.0 FL) 89.5 MCH (27.0 - 31.0 PG) 30.1 RDW (11.5 - 14.5 %) 13.6 Plt Count (130 - 400 /CUMM) 258 MPV (7.4 - 10.4 FL) 7.6 Gran % (42.2 - 75.2 %) 70.4 Lymphocytes % (20.5 - 51.1 %) 16.7 L Monocytes % (1.7 - 9.3 %) 11.2 H Eosinophils % (0 - 5 %) 1.4 Basophils % (0.0 - 2.0 %) 0.3 Absolute Granulocytes (1.4 - 6.5 /CUMM) 5.1 Absolute Lymphocytes (1.2 - 3.4 /CUMM) 1.2 Absolute Monocytes (0.10 - 0.60 /CUMM) 0.8 H Absolute Eosinophils (0.0 - 0.7 /CUMM) 0.1 Absolute Basophils (0.0 - 0.2 /CUMM) 0 PUBS MCHC (33.0 - 37.0 G/DL) 33.7
[2016-10-13] MEDS ORDERED: AUGMENTIN 875-1 EACH PO (08:50)
--- NOTE | 2016-10-13 13:52 | Discharge Summary ---
Visit Information Visit Dates Admission Date: 10/09/16 Discharge Date: 10/13/16 Hospital Course Course Attending Physician: LIDA ROBBINS M.D Primary Care Physician: Dr. Song [facility] [facility] Course: 61-year-old woman with past medical history of asthma, seasonal allergies, total abdominal hysterectomy, bilateral salpingo-oophorectomy at age 33, a recent hospitalization for ischemic colitis at the end of last August at [facility] at which time her hormone replacement was discontinued. A flexible sigmoidoscopy was attempted at that time was unsuccessful and biopsies were not able to be obtained at that time to confirm the diagnosis. Since her discharge she has had persistent abdominal discomfort. She underwent a repeat colonoscopy on October 02 which showed significant diverticular disease, but the mucosa was otherwise normal in appearance. Biopsies showed changes of chronic colitis She had been on prolonged oral antibiotics and just finished a course of Augmentin on September 29 which she noted seemed to help. Day before admission she developed severe left lower quadrant abdominal pain. The pain was not associated with any vomiting or any high fevers. On presentation to the emergency room she was afebrile hemodynamically stable, and what she was found to have diverticulitis without a fluid collection or free air on a CAT scan. She was admitted to the medical service kept nothing by mouth and was started on IV antibiotics. Surgery was consulted and they felt the distribution of colitis on initial CT in August was not in keeping with ischemia as it was in two vascular distributions. Her diet was advanced as tolerated to low fiber diet. Her biopsy from August was not sent to [place] for further review and was resent this time. After clinical improvement she was discharged on Augmentin to complete 14 days of therapy. She is to follow-up with the gastroenterology service as an outpatient for results of pathology sent to [facility]. Complications: none Allergies: Coded Allergies: ciprofloxacin (From CIPRO) (HIVES 10/09/16) tramadol (UNKNOWN 10/28/15) Significant Procedures: SERVICE DATE: 10/09/16 EXAM TYPE: CAT - CT ABD & PELVIS W IV CONTRAST FINDINGS: LUNG BASES: There is minimal bibasilar subsegmental atelectasis. No pleural or pericardial effusion. LIVER, GALLBLADDER, AND BILIARY TREE: There are a few small well marginated benign-appearing cystic lesions within the liver that remain unchanged from prior imaging. There attenuation is otherwise homogeneous. There is no discrete solid liver mass. Focal thickening at the tip of the gallbladder fundus is redemonstrated. The gallbladder is otherwise normal. No abnormal intrahepatic or extrahepatic biliary ductal dilatation. PANCREAS: Unremarkable. SPLEEN: Unremarkable. ADRENAL GLANDS: Unremarkable. KIDNEYS AND URETERS: The kidneys demonstrate symmetric nephrographic enhancement. There is no hydroureteronephrosis. No abnormal perinephric inflammation or collection. There is no nephrolithiasis and no abnormal mass or calcification along the expected course of the right or left ureter. BLADDER: Unremarkable. GASTROINTESTINAL TRACT: There are numerous diverticula primarily involving the descending colon and sigmoid colon. There is inflammatory stranding associated with a short segment of the sigmoid colon best illustrated on coronal image 46 of 79 series 602 and axial image 69 of 89 series 2. These findings are consistent with acute diverticulitis. There is no drainable fluid collection. No free intraperitoneal air or fluid. The stomach and small bowel are unremarkable. The appendix is normal. ABDOMINAL WALL: The abdominal wall is intact. LYMPH NODES: There are no pathologically enlarged mesenteric or retroperitoneal lymph nodes. VASCULAR: A few scattered atheromatous calcification is visualized within the abdominal aorta. The inferior vena cava is unremarkable. PELVIC VISCERA: There chronic changes of a hysterectomy. No worrisome adnexal mass. OSSEOUS STRUCTURES: There is no lytic or blastic osseous lesion. No evidence of acute fracture. 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 IMPRESSION: There is acute diverticulitis of the sigmoid colon. No evidence of perforation. No free intraperineal air or fluid. Otherwise stable examination when compared to most recent prior CT scan of abdomen and pelvis from 09/22/2016. Thickening at the tip of the gallbladder fundus has remained unchanged over the course of multiple previous examinations consistent with adenomyomatosis. Disposition Summary Disposition Principal Diagnosis: Diverticulitis Additional Diagnosis: none Discharge Disposition: home or self care Discharge Instructions General Discharge Information Code Status: Full Code Patient's Diet: low residue diet Patient's Activity: as tolerated Follow-Up Instructions/Appts: follow up with pcp within two weeks of discharge follow up with your gasterenterologist within two weeks of discharge please continue a mechanical low residue diet till advised by your gasterenterologist Medications at Discharge Discharge Medications: Continue taking these medications: Eletriptan HBr (Relpax) 40 MG TABLET 1 Tablet ORAL DAILY Qty = 36 Comments: Last Taken:10/09/16 Time:1800 Montelukast Sodium (Montelukast Sodium) 10 MG TABLET 1 Tablet ORAL DAILY Qty = 90 Comments: Last Taken: 09/12/16 Time: 10:00 AM Lisdexamfetamine Dimesylate (Vyvanse) 60 MG CAPSULE 1 Capsule ORAL Every Morning Qty = 30 Comments: not given in hospital Gabapentin Enacarbil (Horizant) 600 MG TABLET.ER 1 Tablet ORAL TWICE DAILY Qty = 90 Comments: Last Taken: 09/11/16 Time: 6:30 PM Metaxalone (Skelaxin) 800 MG TABLET 1 Tablet ORAL THREE TIMES DAILY Comments: Last Taken:02/12/17 Time:8 AM Mometasone Furoate (Nasonex) 50 MCG SPRAY.PUMP 1 [place] Both sides of nose DAILY Qty = 51 Paroxetine Mesylate (Brisdelle) 7.5 MG CAPSULE 1 Tablet ORAL DAILY Qty = 90 Start taking the following new medications: Amoxicillin/Potassium Clav (Augmentin 875-125 Tablet) 875 MG-125 MG TABLET 1 Tablet ORAL TWICE DAILY Days = 10 No Refills Copies To: GAGANDEEP PETE,MONTEZ [place] Attending Review Statement Documenting Attending: LIDA ROBBINS M.D Other Findings: I have reviewed the discharge summary
== END 2016-10-13 14:30 | DRG 392 ==
LOC: ENRESERVTM → ENRESERVDT → ERH 01:14 → ERHI 05:15 → 2NA 05:15 → ENPENDDIS 10-13 10:39 → 2NA 10-13 14:30
PROVIDERS: Emergency Medicine; Internal Medicine; ADMIT Internal Medicine
DX: K57.92 Diverticulitis of intestine, part unspecified, without perforation or abscess without bleeding (principal); J45.909 Unspecified asthma, uncomplicated; Z87.891 Personal history of nicotine dependence
CPT/HCPCS: 2NAP; 36415; 74177; 81001; 82436; 87040; 93005; 93010; 96374; 96375; J0131; J0696; J1650; J2405; J2765